=== PATIENT | female | born 1960 | race Two or more races ===

== ENCOUNTER → 2017-02-14 | Outpatient (REF) | payer OTHER ==
[2017-02-14 13:41] LABS: BASO # 0.1 10^3/uL (0.0-0.2); BASO % 0.9 % (0.0-1.0); EOS # 0.2 10^3/uL (0.0-0.50); EOS % 2.7 % (0.0-3.0); IMMATURE GRANULOCYTE % 0.3 % (0-0); LYMPH # 1.1 10^3/uL (1.5-4.5); LYMPH % 16.5 % (24.0-44.0); MEAN CORPUSCULAR HEMOGLOBIN 28.2 pg (27.0-33.0); MEAN CORPUSCULAR HGB CONC 33.7 g/dl (32.0-36.5); MEAN CORPUSCULAR VOLUME 83.8 fl (80.0-96.0); MONO # 0.4 10^3/uL (0.0-0.8); MONO % 5.2 % (0.0-5.0); NEUTROPHILS # 5.2 10^3/uL (1.8-7.7); NEUTROPHILS % 74.4 % (36.0-66.0); PLATELET COUNT, AUTOMATED 280 10^3/uL (150-450); RED CELL DISTRIBUTION WIDTH 12.6 % (11.5-14.5); WHITE BLOOD COUNT 6.9 10^3/uL (4.0-10.0)
[2017-02-14 13:56] LABS: ALBUMIN 3.3 GM/DL (3.2-5.2); ALBUMIN/GLOBULIN RATIO 1.14 (1.00-1.93); BILIRUBIN,TOTAL 0.4 MG/DL (0.2-1.0); CALCIUM LEVEL 8.4 MG/DL (8.5-10.1); CREATININE FOR GFR 1.29 MG/DL (0.55-1.02); GLOMERULAR FILTRATION RATE 45.7 (>51); POTASSIUM SERUM 4.4 MEQ/L (3.5-5.1); TOTAL PROTEIN 6.2 GM/DL (6.4-8.2)
== END ==
LOC: M SFHCADAM 11:22
PROVIDERS: ATTEND Family Medicine
DX: E78.5 Hyperlipidemia, unspecified (principal); E11.9 Type 2 diabetes mellitus without complications

== ENCOUNTER → 2017-02-28 | Outpatient (REF) | payer OTHER ==
[2017-02-28 13:42] LABS: MAU/CREAT RATIO 2705.8 MCG/MG (0.0-30.0)
== END ==
LOC: M SFHCADAM 11:03
DX: E11.9 Type 2 diabetes mellitus without complications (principal)

== ENCOUNTER → 2017-07-31 | Outpatient (REF) | payer OTHER | LOC: M SFHCADAM 17:24 | DX: E11.9 Type 2 diabetes mellitus without complications (principal) ==

== ENCOUNTER → 2017-12-27 | Outpatient (CLI) | payer OTHER | LOC: M ADAMS 13:45 | DX: S80.01XA Contusion of right knee, initial encounter (principal); X58.XXXA Exposure to other specified factors, initial encounter; Y92.9 Unspecified place or not applicable | CPT/HCPCS: 73564 ==

== ENCOUNTER → 2018-07-03 | Outpatient (REF) | payer OTHER ==
[2018-07-03 12:40] LABS: BASO # 0.1 10^3/uL (0.0-0.2); BASO % 1.1 % (0.0-1.0); EOS # 0.2 10^3/uL (0.0-0.50); EOS % 3.7 % (0.0-3.0); HEMATOCRIT 31.4 % (36.0-47.0); HEMOGLOBIN 10.5 g/dl (12.0-15.5); LYMPH # 1.2 10^3/uL (1.5-4.5); LYMPH % 20.4 % (24.0-44.0); MEAN CORPUSCULAR HEMOGLOBIN 28.9 pg (27.0-33.0); MEAN CORPUSCULAR HGB CONC 33.4 g/dl (32.0-36.5); MEAN CORPUSCULAR VOLUME 86.5 fl (80.0-96.0); MONO # 0.3 10^3/uL (0.0-0.8); MONO % 5.3 % (0.0-5.0); NEUTROPHILS # 3.9 10^3/uL (1.8-7.7); NEUTROPHILS % 69.1 % (36.0-66.0); PLATELET COUNT, AUTOMATED 209 10^3/uL (150-450); RED BLOOD COUNT 3.63 10^6/uL (4.00-5.40); WHITE BLOOD COUNT 5.6 10^3/uL (4.0-10.0)
[2018-07-03 12:49] LABS: ALBUMIN 2.7 GM/DL (3.2-5.2); BILIRUBIN,TOTAL 0.3 MG/DL (0.2-1.0); CALCIUM LEVEL 8.3 MG/DL (8.5-10.1); CHOLESTEROL RISK RATIO 3.561 (<5); CREATININE FOR GFR 1.89 MG/DL (0.55-1.30); GLOMERULAR FILTRATION RATE 29.3 (>51); POTASSIUM SERUM 4.6 MEQ/L (3.5-5.1); TOTAL PROTEIN 5.1 GM/DL (6.4-8.2)
[2018-07-03 14:49] LABS: HEMOGLOBIN A1c 8.5 %
== END ==
LOC: M SFHCADAM 09:28
PROVIDERS: ATTEND Family Medicine
DX: E11.9 Type 2 diabetes mellitus without complications (principal)

== ENCOUNTER 2018-11-11 17:51 | Inpatient (IN) | payer OTHER ==
[~2018-11-11] VITALS: Ht 147.3 cm; Wt 58.7 kg
[2018-11-11] MEDS ORDERED: ATOR80TA59 PO (18:14)
[2018-11-11] MEDS ORDERED: LABETALOL HCL 100 MG/20 ML VIAL IV STA ×2 (18:14→19:18)
[2018-11-11] MEDS ORDERED: METO1TAB87 PO (18:14)
[2018-11-11] MEDS ORDERED: GLIP10TA6 PO (18:14)
[2018-11-11] MEDS ORDERED: LISI10TA4 PO (18:14)
[2018-11-11 18:25] LABS: BASO % 0.4 % (0.0-1.0); HEMATOCRIT 34.7 % (36.0-47.0); HEMOGLOBIN 12.1 g/dl (12.0-15.5); LYMPH # 0.6 10^3/uL (1.5-5.0); LYMPH % 6.1 % (24.0-44.0); MEAN CORPUSCULAR HEMOGLOBIN 28.7 pg (27.0-33.0); MEAN CORPUSCULAR HGB CONC 34.9 g/dl (32.0-36.5); MEAN CORPUSCULAR VOLUME 82.2 fl (80.0-96.0); MONO # 0.3 10^3/uL (0.0-0.8); MONO % 2.6 % (0.0-5.0); NEUTROPHILS # 9.2 10^3/uL (1.5-8.5); NEUTROPHILS % 90.4 % (36.0-66.0); PLATELET COUNT, AUTOMATED 243 10^3/uL (150-450); RED BLOOD COUNT 4.22 10^6/uL (4.00-5.40); WHITE BLOOD COUNT 10.2 10^3/uL (4.0-10.0)
--- NOTE | 2018-11-11 18:48 | REPVR ---
EXAM: CT Head Without Contrast EXAM DATE/TIME: 11/11/2018 6:15 PM CLINICAL HISTORY: 57 years old, female; Pain; Headache TECHNIQUE: Imaging protocol: Computed tomography of the head without contrast. Radiation optimization: All CT scans at this facility use at least one of these dose optimization techniques: automated exposure control; mA and/or kV adjustment per patient size (includes targeted exams where dose is matched to clinical indication); or iterative reconstruction. COMPARISON: No relevant prior studies available. FINDINGS: Brain: There is no significant parenchymal volume loss. Confluent white matter changes are demonstrated in the subcortical, centrum semiovale and periventricular white matter consistent with small vessel white matter angiopathic gliosis. Findings are atypical for this age group. Small lacunar infarct left basal ganglia. Ventricles: Normal. No ventriculomegaly. Bones/joints: Unremarkable. No acute fracture. Sinuses: Visualized sinuses are unremarkable. No fluid levels. Mastoid air cells: Visualized mastoid air cells are well aerated. Soft tissues: Unremarkable. IMPRESSION: 1. There is no significant parenchymal volume loss. 2. Confluent white matter changes are demonstrated in the subcortical, centrum semiovale and periventricular white matter consistent with small vessel white matter angiopathic gliosis. Findings are atypical for this age group. Electronically signed by: Tyron Baker On 11/11/2018 18:48:42 PM
[2018-11-11 18:54] LABS: INR 0.95; PROTHROMBIN TIME 12.4 SECONDS (11.8-14.0)
[2018-11-11 18:57] LABS: BILIRUBIN,TOTAL 0.6 MG/DL (0.2-1.0); CALCIUM LEVEL 9.1 MG/DL (8.5-10.1); CREATININE FOR GFR 2.11 MG/DL (0.55-1.30); GLOMERULAR FILTRATION RATE 25.8 (>51); POTASSIUM SERUM 3.8 MEQ/L (3.5-5.1); TOTAL PROTEIN 5.8 GM/DL (6.4-8.2)
--- NOTE | 2018-11-11 19:28 | ECGEPIP ---
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
[2018-11-11] MEDS ORDERED: ASPI1TAB22 PO (19:30)
[2018-11-11] MEDS ORDERED: ONDANSETRON 4MG/2ML VIAL (J2405) As Ordered ONE (19:49)
[2018-11-11] MEDS ORDERED: METOPROLOL SUCC (TopROL XL) 50MG **XL** TAB PO ONE (20:00)
[2018-11-11] MEDS ORDERED: LISINOPRIL 20 MG TAB PO ONE (21:00)
[2018-11-11] MEDS ORDERED: ONDANSETRON 4MG/2ML VIAL (J2405) IV ONE (21:00)
[2018-11-11] MEDS ORDERED: PERCOCET 5MG/325MG TAB PO ONE (21:00)
[2018-11-11] MEDS ORDERED: METOPROLOL TART 50 MG TAB PO ONE (21:00)
[2018-11-11] MEDS ORDERED: MOM 30ML SUSPENSION UDC PO PRN (21:30)
[2018-11-11] MEDS ORDERED: NS 0.45% 1,000 ML IV SCH (21:30)
--- NOTE | 2018-11-11 21:42 | HPEPDOC ---
General Date of Admission Date of Service: Nov 11, 2018 Chief Complaint The patient is a 57-year-old female admitted with a reason for visit of Vomiting, Headache, Dizziness. Source: Patient Exam Limitations: No limitations Timing/Duration: Day(s) Severity: Severe History of Present Illness Ms Martin is a 57 years old woman who ran out of her anti-hypertensive medications (Lisinopril and Metoprolol) two days ago presented to ER with frontal headache, nausea, vomiting, and bilateral blurry vision. PT denies chest pain, SOB, fever, chills or focal neurological deficits. In the ER, pt was noted to have extremely elevated BP 296/190. Labs are pretty much at baseline, with slight increase of serum Cr from 1.[address]: no acute findings. CXR: normal size mediastinum. I saw pt in the ER after she had received a dose of Labetalol 20 mg IVP. BP right arm 255/116, left arm 248/116. She received another dose of Labetalol 20 mg IVP; BP was down to 216/98. Headache, nausea and blurry vision were persistent, but better. Pt was given oral Lisinopril and Metoprolol. EKG: SR 87/min, mild T inversion in V5-6, Diffuse T flattening. Home Medications Scheduled Aspirin (Aspirin) 325 Mg Tablet, 325 MG PO DAILY, (Reported) Atorvastatin Calcium (Atorvastatin Calcium) 80 Mg Tablet, 80 MG PO DAILY, (Reported) Glipizide (Glipizide) 10 Mg Tablet, 10 MG PO BID, (Reported) Lisinopril (Lisinopril) 10 Mg Tablet, 10 MG PO DAILY, (Reported) Metoprolol Tartrate (Metoprolol Tartrate) 25 Mg Tablet, 25 MG PO BID, (Reported) Allergies Coded Allergies: No Known Allergies (Unverified , 11/11/18) Past Medical History Medical History HTN, NIDDM, HLD Surgical History Prosthetic Mitral Valve replacement, Family History Significant Family History: Other (Unknown (pt was adopted)) Social History * Smoker: Denies Alcohol: Denies Drugs: denies Psychosocial History: No pertinent psych hx A-FIB/CHADSVASC A-FIB History Current/History of A-Fib/PAF?: No Review of Systems Constitutional: Denies: Chills, Fever Eyes: Reports: Vision change ENT: Reports: Head Aches; Denies: Dysphagia, Epistaxis Skin: Denies: Rash, Lesions Pulmonary: Denies: Dyspnea, Cough, Pleuritic Chest Pain Cardiovascular: Denies: Chest Pain, Palpitations, Edema, Lt Headedness Gastrointestinal: Reports: Nausea, Vomiting; Denies: Abdominal Pain Genitourinary: Denies: Dysuria, Frequency Hematologic: Denies: Bruising Endocrine: Denies: Polydipsia, Polyphagia Musculoskeletal: Denies: Neck Pain, Back Pain, Shoulder Pain Neurological: Denies: Weakness, Numbness, Change in speech, Confusion, Seizures Psych: Reports: Mood Normal; Denies: Anxiety Physical Examination General Exam: Positive: Alert, Cooperative, No Acute Distress Eye Exam: Positive: PERRLA, Conjunctiva & lids normal ENT Exam: Positive: Atraumatic, Mucous membr. moist/pink Neck Exam: Positive: Supple; Negative: JVD Chest Exam: Positive: Clear to auscultation, Normal air movement Heart Exam: Positive: Rate Normal, Regular Rhythm; Negative: Murmurs Abdomen Exam: Positive: Normal bowel sounds, Soft; Negative: Tenderness Extremity Exam: Positive: Normal pulses; Negative: Edema Skin Exam: Positive: Nl turgor and temperature; Negative: Rash, Breakdown Neuro Exam: Positive: Normal Speech, Strength at 5/5 X4 ext, Normal Tone, Sensation Intact, Cranial Nerves 3-12 NL Psych Exam: Positive: Mental status NL, Mood NL, Oriented x 3; Negative: Anxiety Vital Signs Vital Signs Date Time Temp Pulse Resp B/P (MAP) Pulse Ox O2 Delivery O2 Flow Rate FiO2 11/11/18 21:15 71 16 230/108 (148) 98 Room Air 11/11/18 17:52 98.0 Laboratory Data Labs 24H Laboratory Tests 2 11/11/18 18:17: Immature Granulocyte % (Auto) 0.5, White Blood Count 10.2H, Red Blood Count 4.22, Hemoglobin 12.1, Hematocrit 34.7L, Mean Corpuscular Volume 82.2, Mean Corpuscular Hemoglobin 28.7, Mean Corpuscular Hemoglobin Concent 34.9, Red Cell Distribution Width 13.9, Platelet Count 243, Neutrophils (%) (Auto) 90.4H, Lymphocytes (%) (Auto) 6.1L, Monocytes (%) (Auto) 2.6, Eosinophils (%) (Auto) 0.0, Basophils (%) (Auto) 0.4, Neutrophils # (Auto) 9.2H, Lymphocytes # (Auto) 0.6L, Monocytes # (Auto) 0.3, Eosinophils # (Auto) 0.0, Basophils # (Auto) 0.0, Nucleated Red Blood Cells % (auto) 0.0, Prothrombin Time 12.4, Prothromb Time International Ratio 0.95, Anion Gap 10, Glomerular Filtration Rate 25.8L, Blood Urea Nitrogen 33H, Creatinine 2.11H, Sodium Level 141, Potassium Level 3.8, Chloride Level 109H, Carbon Dioxide Level 22, Calcium Level 9.1, Aspartate Amino Transf (AST/SGOT) 22, Alanine Aminotransferase (ALT/SGPT) 29, Alkaline Phosphatase 96, Total Bilirubin 0.6, Total Protein 5.8L, Albumin 3.0L, Albumin/Globulin Ratio 1.07 11/11/18 18:18: POC Glucose (Misc Panel) 220H, POC Sodium (Misc Panel) 138, POC Potassium (Misc Panel) 3.7, POC Chloride (Misc Panel) 108, POC Total CO2 (Misc Panel) 22.0L, POC Blood Urea Nitrogen (Misc Panel 30H, POC Ionized Calcium (Misc Panel) 4.5, POC Creatinine (Misc Panel) 2.4H, POC Hematocrit (Misc Panel) 32.0L CBC/BMP Laboratory Tests 11/11/18 18:17 Red Blood Count 4.22, Mean Corpuscular Volume 82.2, Mean Corpuscular Hemoglobin 28.7, Mean Corpuscular Hemoglobin Concent 34.9, Red Cell Distribution Width 13.9, Neutrophils (%) (Auto) 90.4 H, Lymphocytes (%) (Auto) 6.1 L, Monocytes (%) (Auto) 2.6, Eosinophils (%) (Auto) 0.0, Basophils (%) (Auto) 0.4, Neutrophils # (Auto) 9.2 H, Lymphocytes # (Auto) 0.6 L, Monocytes # (Auto) 0.3, Eosinophils # (Auto) 0.0, Basophils # (Auto) 0.0, Calcium Level 9.1, Aspartate Amino Transf (AST/SGOT) 22, Alanine Aminotransferase (ALT/SGPT) 29, Alkaline Phosphatase 96, Total Bilirubin 0.6, Total Protein 5.8 L, Albumin 3.0 L Assessment/Plan HTN Urgency due to Medication non-compliance, no end organ damage - Admit to inpatient, in PCU with Tele - Monitor BP - Allow slow recovery; prevent rapid lowering of BP - Monitor signs of organ dysfunction - Continue home meds; adjust as needed Plan / VTE VTE Prophylaxis Ordered?: No VTE Exclusion Mechanical Proph: Low Risk for VTE VTE Exclusion Pharmacological: At Low Risk for VTE Plan IVF: Initiate Activity: Encourage Ambulation Diagnostics: Repeat Labs in AM Anticipated Discharge: Home BRETT MALONE MD Nov 11, 2018 21:41
[2018-11-11] MEDS ORDERED: hydrALAZINE INJ 20 MG/ML VIAL IV ONE (22:30)
[2018-11-11 23:11] VITALS: BP 170/82
[2018-11-12] MEDS: ONDANSETRON 4MG/2ML VIAL (J2405) IV PRN (00:21)
[2018-11-12] MEDS: PERCOCET 5MG/325MG TAB PO PRN ×2 (00:23→21:21)
--- NOTE | 2018-11-12 02:02 | REP ---
Clinical: Hypertension. Technique: Single portable view of the chest. Comparison: None. Findings: Cardiac silhouette is upper limits of normal. Evidence of prior sternotomy and aortic valve repair. Surgical clips identified in the right hilar region. Lung zendejas demonstrate chronic interstitial changes. No focal consolidation, effusion, or pneumothorax. Skeletal structures are intact. Impression: Chronic-appearing changes as above. Electronically Signed by Zachary Shi MD 11/12/2018 01:53 A
[2018-11-12 04:00] VITALS: BP 182/92
[2018-11-12 06:01] LABS: CALCIUM LEVEL 8.1 MG/DL (8.5-10.1); CREATININE FOR GFR 2.45 MG/DL (0.55-1.30); GLOMERULAR FILTRATION RATE 21.7 (>51); POTASSIUM SERUM 3.7 MEQ/L (3.5-5.1)
[2018-11-12 08:00] VITALS: BP 194/92
[2018-11-12] MEDS ORDERED: GLUCAGON FOR INJ 1 MG VIAL (J1610) SC PRN (08:45)
[2018-11-12] MEDS ORDERED: GLUCOSE 4 GM CHEW TABLET PO PRN (08:45)
[2018-11-12] MEDS ORDERED: DEXTROSE 50% 50 ML SYRINGE IV PRN (08:45)
--- NOTE | 2018-11-12 08:57 | IPNPDOC ---
Subjective Date Seen The patient was seen on 11/12/18. Subjective Chief Complaint/HPI headache better, no nausea this am Constitutional: Denies: Chills ENT: Reports: Head Aches (improved) Skin: Denies: Rash Pulmonary: Denies: Dyspnea, Cough Cardiovascular: Denies: Chest Pain, Palpitations Gastrointestinal: Denies: Nausea, Abdominal Pain Genitourinary: Denies: Dysuria Hematologic: Denies: Bruising Musculoskeletal: Denies: Neck Pain Neurological: Denies: Weakness Psych: Reports: Mood Normal Objective Physical Examination General Exam: Positive: Alert, Cooperative, No Acute Distress Eye Exam: Positive: PERRLA, Conjunctiva & lids normal ENT Exam: Positive: Atraumatic, Mucous membr. moist/pink Neck Exam: Positive: Supple; Negative: JVD Chest Exam: Positive: Clear to auscultation, Normal air movement Heart Exam: Positive: Rate Normal, Regular Rhythm, Murmurs (2-3 systolic murmur at base) Abdomen Exam: Positive: Normal bowel sounds, Soft, Other (no bruit noted); Negative: Tenderness Extremity Exam: Positive: Normal pulses; Negative: Edema Skin Exam: Positive: Nl turgor and temperature, Other skin issue (grime on skin of feet, elbows.); Negative: Rash, Breakdown Neuro Exam: Positive: Normal Speech, Strength at 5/5 X4 ext, Normal Tone, Sensation Intact, Cranial Nerves 3-12 NL Psych Exam: Positive: Mental status NL, Mood NL, Oriented x 3; Negative: Anxiety Assessment /Plan Problems (1) Hypertensive urgency Status: Acute Response to Treatment: Improving Problem Text: change to carvedilol to replace metoprolol, add amlodipine, titrate both to effect. d/c lisinopril d/t acute renal failure. Will request renal u/s. (2) Diabetes mellitus Status: Chronic Response to Treatment: Stable Problem Text: Last A1c in the low 8's. Not on insulin at home, just using glipizide (3) Stage 4 chronic kidney disease due to diabetes mellitus Status: Chronic Response to Treatment: Worse Problem Text: has been on lisinopril with creatinine 1.89 when last checked with evidence of poor control at that time. (4) Acute renal failure Status: Acute Response to Treatment: Worse Problem Text: Creatinine worse compared to admission and compared to record of 06/2018. Etiology could be poor dm control, inadequate bp control or other cause. she looks a little dry so will continue gentle hydration while bp meds are adjusted and stop TERESA-i for now. (5) Heart murmur Status: Acute Response to Treatment: Stable Problem Text: not noted on last outpt encounter. will request Echo to evaluate Plan/VTE VTE Prophylaxis Ordered?: No VTE Exclusion Mechanical Proph: Low Risk for VTE VTE Exclusion Pharmacological: At Low Risk for VTE Plan IVF: Initiate Activity: Encourage Ambulation Diagnostics: Repeat Labs in AM Anticipated Discharge: [facility] VS[facility] Vital Signs/I&O Vital Signs Date Time Temp Pulse Resp B/P (MAP) Pulse Ox O2 Delivery O2 Flow Rate FiO2 11/12/18 04:00 98.5 65 18 182/92 (122) 97 11/11/18 22:00 Room Air I&O- Last 24 Hours up to 6 AM 11/12/18 06:00 Intake Total 450 ml Output Total 0 ml Balance 450 ml Laboratory Data 24H LABS Laboratory Tests 2 11/11/18 18:17: Immature Granulocyte % (Auto) 0.5, White Blood Count 10.2H, Red Blood Count 4.22, Hemoglobin 12.1, Hematocrit 34.7L, Mean Corpuscular Volume 82.2, Mean Corpuscular Hemoglobin 28.7, Mean Corpuscular Hemoglobin Concent 34.9, Red Cell Distribution Width 13.9, Platelet Count 243, Neutrophils (%) (Auto) 90.4H, Lymphocytes (%) (Auto) 6.1L, Monocytes (%) (Auto) 2.6, Eosinophils (%) (Auto) 0.0, Basophils (%) (Auto) 0.4, Neutrophils # (Auto) 9.2H, Lymphocytes # (Auto) 0.6L, Monocytes # (Auto) 0.3, Eosinophils # (Auto) 0.0, Basophils # (Auto) 0.0, Nucleated Red Blood Cells % (auto) 0.0, Prothrombin Time 12.4, Prothromb Time International Ratio 0.95, Anion Gap 10, Glomerular Filtration Rate 25.8L, Blood Urea Nitrogen 33H, Creatinine 2.11H, Sodium Level 141, Potassium Level 3.8, Chloride Level 109H, Carbon Dioxide Level 22, Calcium Level 9.1, Aspartate Amino Transf (AST/SGOT) 22, Alanine Aminotransferase (ALT/SGPT) 29, Alkaline Phosphatase 96, Total Bilirubin 0.6, Total Protein 5.8L, Albumin 3.0L, Al bumin/Globulin Ratio 1.07 11/11/18 18:18: POC Glucose (Misc Panel) 220H, POC Sodium (Misc Panel) 138, POC Potassium (Misc Panel) 3.7, POC Chloride (Misc Panel) 108, POC Total CO2 (Misc Panel) 22.0L, POC Blood Urea Nitrogen (Misc Panel 30H, POC Ionized Calcium (Misc Panel) 4.5, POC Creatinine (Misc Panel) 2.4H, POC Hematocrit (Misc Panel) 32.0L 11/12/18 05:18: Anion Gap 10, Glomerular Filtration Rate 21.7L, Blood Urea Nitrogen 39H, Creatinine 2.45H, Sodium Level 141, Potassium Level 3.7, Chloride Level 109H, Carbon Dioxide Level 22, Calcium Level 8.1L CBC/BMP Laboratory Tests 11/11/18 18:17 Red Blood Count 4.22, Mean Corpuscular Volume 82.2, Mean Corpuscular Hemoglobin 28.7, Mean Corpuscular Hemoglobin Concent 34.9, Red Cell Distribution Width 13.9, Neutrophils (%) (Auto) 90.4 H, Lymphocytes (%) (Auto) 6.1 L, Monocytes (%) (Auto) 2.6, Eosinophils (%) (Auto) 0.0, Basophils (%) (Auto) 0.4, Neutrophils # (Auto) 9.2 H, Lymphocytes # (Auto) 0.6 L, Monocytes # (Auto) 0.3, Eosinophils # (Auto) 0.0, Basophils # (Auto) 0.0, Calcium Level 9.1, Aspartate Amino Transf (AST/SGOT) 22, Alanine Aminotransferase (ALT/SGPT) 29, Alkaline Phosphatase 96, Total Bilirubin 0.6, Total Protein 5.8 L, Albumin 3.0 L 11/12/18 05:18 Calcium Level 8.1 L Lonnie Graves MD Nov 12, 2018 08:57
[2018-11-12] MEDS ORDERED: LISINOPRIL 10 MG TAB PO SCH (09:00)
[2018-11-12] MEDS ORDERED: METOPROLOL TART 25 MG TABLET PO SCH (09:00)
[2018-11-12] MEDS: CARVedilol 6.25 MG TAB PO SCH ×2 (09:13→21:22)
[2018-11-12] MEDS: ATORVASTATIN 20 MG TAB PO SCH (09:13)
[2018-11-12] MEDS: ASPIRIN 325 MG TAB PO SCH (09:13)
[2018-11-12] MEDS: NS 0.45% 1,000 ML IV SCH ×2 (10:11→21:15)
[2018-11-12 12:00] VITALS: BP 150/82
[2018-11-12] MEDS: HumaLOG INSULIN (NovoLOG) PER UNIT SC SCH ×3 (12:59→21:00)
[2018-11-12 16:00] VITALS: BP 132/84
[2018-11-12] MEDS: ACETAMINOPHEN TAB 650MG DOSE (2X325MG) PO PRN (17:00)
[2018-11-12] MEDS: MAALOX 30 ML SUSP *UDC PO PRN (17:00)
[2018-11-12 20:00] VITALS: BP 168/72
[2018-11-12 23:59] VITALS: BP 162/68
[2018-11-13 00:38] LABS: APPEARANCE, URINE CLEAR (CLEAR); BACTERIA, URINE AUTO NEGATIVE (NEGATIVE); BILIRUBIN, URINE AUTO NEGATIVE (NEGATIVE); BLOOD, URINE BLOOD 2+ (NEGATIVE); COLOR, URINE YELLOW (YELLOW); GLUCOSE, URINE (UA) AUTO 3+ mg/dL (NEGATIVE); KETONE, URINE AUTO NEGATIVE (NEGATIVE); LEUKOCYTE ESTERASE, URINE AUTO NEGATIVE (NEGATIVE); MUCUS, URINE SMALL (NEGATIVE); NITRITE, URINE AUTO NEGATIVE (NEGATIVE); PROTEIN, URINE AUTO 3+ mg/dL (NEGATIVE); RBC, URINE AUTO 2 /HPF (0-3); SPECIFIC GRAVITY URINE AUTO 1.023 (1.002-1.035); SQUAMOUS EPITHELIAL CELL UR AU 3 /HPF (0-6); UROBILINOGEN, URINE AUTO 0.2 mg/dL (0.0-2.0); WBC, URINE AUTO 6 /HPF (0-3)
[2018-11-13 01:52] LABS: MAU/CREAT RATIO 7151.8 MCG/MG (0.0-30.0)
[2018-11-13 04:00] VITALS: BP 168/77
[2018-11-13] MEDS: NS 0.45% 1,000 ML IV SCH (05:54)
[2018-11-13] MEDS: HumaLOG INSULIN (NovoLOG) PER UNIT SC SCH ×4 (07:30→21:00)
[2018-11-13 07:40] VITALS: BP 188/96
[2018-11-13] MEDS: ASPIRIN 325 MG TAB PO SCH (08:45)
[2018-11-13] MEDS: ATORVASTATIN 20 MG TAB PO SCH (08:45)
[2018-11-13] MEDS: CARVedilol 6.25 MG TAB PO SCH ×2 (08:46→21:19)
[2018-11-13] MEDS ORDERED: amLODIPine 5 MG TAB PO SCH (09:00)
[2018-11-13] MEDS ORDERED: FLUBLOK(EGG FREE)(QUAD)INFLUENZA VACC 0.5ML SYRINGE (90682)18YRS&OLDER IM ONE (09:00)
[2018-11-13 10:06] LABS: ALBUMIN 2.3 GM/DL (3.2-5.2); BILIRUBIN,TOTAL 0.3 MG/DL (0.2-1.0); CALCIUM LEVEL 7.8 MG/DL (8.5-10.1); CREATININE FOR GFR 2.68 MG/DL (0.55-1.30); GLOMERULAR FILTRATION RATE 19.6 (>51); POTASSIUM SERUM 3.7 MEQ/L (3.5-5.1); TOTAL PROTEIN 4.7 GM/DL (6.4-8.2)
--- NOTE | 2018-11-13 11:24 | REP ---
Renal vascular ultrasound: Right Kidney: Extraparenchymal renal artery. Peak renal artery flow velocity the 61.3 cm/ sec Peak aortic velocity: 93.3 cm/sec Renal/aortic ratio: 0.7 Intraparenchymal renal arteries. Resistive index: upper pole 0.79 mid pole 0.76 lower pole 0.79 Acceleration time: upper pole 0.052 mid pole 0.048 lower pole 0.068 Left kidney: Extraparenchymal renal artery: Peak renal artery flow velocity: 79.2 cm/sec. Peak aortic velocity: 93.3 cm/sec Renal/aortic ratio: 0.8 Intraparenchymal renal arteries: Resistive index: Upper pole 0.71 mid pole 0.79 lower pole 0.72 Acceleration time: Upper pole 0.063 mid pole eight 0.079 lower pole 0.039 Impression: No Doppler evidence of renal artery stenosis. The resistive indices are elevated bilaterally, this is nonspecific. Bilateral renal ultrasound: The right kidney measures 9.0 x 3.9 x 3 point centimeters. The left kidney measures 9.5 x 3.8 x 3.9 cm. The kidneys are in the low normal size range. There is no hydronephrosis on the right on the left. There are no renal calculi. There are no solid or cystic renal masses. With Doppler assessment there are bilateral ureteral jets into the bladder. Multiple echogenic foci are identified within the gallbladder, likely cholelithiasis. There is a trace of free fluid adjacent to the liver and kidneys, possibly a small volume of ascites. There are bilateral pleural effusions. Impression: Essentially negative renal ultrasound. However, there is probable cholelithiasis and small volume of ascites and bilateral pleural effusions. Electronically Signed by Devonte Majano MD 11/13/2018 11:15 A
--- NOTE | 2018-11-13 11:59 | IPNPDOC ---
Subjective Date Seen The patient was seen on 11/13/18. Subjective Chief Complaint/HPI Patient reports headache. She just returned from ultrasound Constitutional: Denies: Chills, Fever ENT: Reports: Head Aches Pulmonary: Denies: Cough Cardiovascular: Denies: Chest Pain, Palpitations, Orthopnea Gastrointestinal: Denies: Nausea, Abdominal Pain Genitourinary: Denies: Dysuria, Frequency Psych: Reports: Mood Normal Objective Physical Examination General Exam: Positive: Alert, Cooperative, No Acute Distress Eye Exam: Positive: PERRLA, Conjunctiva & lids normal ENT Exam: Positive: Atraumatic, Mucous membr. moist/pink Neck Exam: Positive: Supple; Negative: JVD Chest Exam: Positive: Clear to auscultation, Normal air movement Heart Exam: Positive: Rate Normal, Regular Rhythm, Murmurs (2-3 systolic murmur at base) Abdomen Exam: Positive: Normal bowel sounds, Soft, Other (no bruit noted); Negative: Tenderness Extremity Exam: Positive: Edema (trace edema), Normal pulses Skin Exam: Positive: Nl turgor and temperature, Other skin issue (grime on skin of feet, elbows.); Negative: Rash, Breakdown Neuro Exam: Positive: Normal Speech, Strength at 5/5 X4 ext, Normal Tone, Sensation Intact, Cranial Nerves 3-12 NL Psych Exam: Positive: Mental status NL, Mood NL, Oriented x 3; Negative: Anxiety Assessment /Plan Problems (1) Hypertensive urgency Status: Acute Response to Treatment: Improving Problem Text: 11/13/18: Increase Amlodipine to 10mg. Continue with beta dc. Renal u/s negative for ROYAL change to carvedilol to replace metoprolol, add amlodipine, titrate both to effect. d/c lisinopril d/t acute renal failure. Will request renal u/s. (2) Diabetes mellitus Status: Chronic Response to Treatment: Stable Problem Text: 11/13/18: Starting basal insulin Last A1c in the low 8's. Not on insulin at home, just using glipizide (3) Stage 4 chronic kidney disease due to diabetes mellitus Status: Chronic Response to Treatment: Worse Problem Text: has been on lisinopril with creatinine 1.89 when last checked with evidence of poor control at that time. (4) Acute renal failure Status: Acute Response to Treatment: Worse Problem Text: 11/13/18: Renal function slightly worse. Nephrology consulted Creatinine worse compared to admission and compared to record of 06/2018. Etiology could be poor dm control, inadequate bp control or other cause. she looks a little dry so will continue gentle hydration while bp meds are adjusted and stop TERESA-i for now. (5) Heart murmur Status: Acute Response to Treatment: Stable Problem Text: not noted on last outpt encounter. will request Echo to evaluate Plan/VTE VTE Prophylaxis Ordered?: No VTE Exclusion Mechanical Proph: Low Risk for VTE VTE Exclusion Pharmacological: At Low Risk for VTE Plan IVF: Initiate Activity: Encourage Ambulation Diagnostics: Repeat Labs in AM Anticipated Discharge: Home VS, I&O, 24H, [facility] Vital Signs/I&O Vital Signs Date Time Temp Pulse Resp B/P (MAP) Pulse Ox O2 Delivery O2 Flow Rate FiO2 11/13/18 08:45 180/94 11/13/18 07:40 97.3 68 18 100 11/11/18 22:00 Room Air I&O- Last 24 Hours up to 6 AM 11/13/18 06:00 Intake Total 1985 ml Output Total 200 ml Balance 1785 ml Laboratory Data 24H LABS Laboratory Tests 2 11/12/18 12:37: Bedside Glucose (Misc Panel) 221H 11/12/18 17:05: Bedside Glucose (Misc Panel) 107H 11/12/18 21:13: Bedside Glucose (Misc Panel) 154H 11/13/18 00:05: Urine Appearance CLEAR, Urine Color YELLOW, Urine pH 5.0, Urine Specific [place] 1.023, Urine Protein 3+H, Urine Glucose (UA) 3+H, Urine Ketones NEGATIVE, Urine Urobilinogen 0.2, Urine Bilirubin NEGATIVE, Urine Leukocyte Esterase NEGATIVE, Urine Blood 2+H, Urine Nitrite NEGATIVE, Urine WBC (Auto) 6H, Urine RBC (Auto) 2, Urine Hyaline Casts (Auto) 13, Urine Bacteria (Auto) NEGATIVE, Urine Squamous Epithelial Cells 3, Urine Mucus (Auto) SMALL, Urine Sperm (Auto) , Urine Creatinine 158.0, Urine Microalbumin 70272.0, Urine Microalbumin/Creatinine Ratio 7151.8H 11/13/18 08:30: Bedside Glucose (Misc Panel) 154H 11/13/18 08:54: Anion Gap 9, Glomerular Filtration Rate 19.6L, Blood Urea Nitrogen 38H, Crea tinine 2.68H, Sodium Level 140, Potassium Level 3.7, Chloride Level 109H, Carbon Dioxide Level 22, Calcium Level 7.8L, Aspartate Amino Transf (AST/SGOT) 13, Alanine Aminotransferase (ALT/SGPT) 21, Alkaline Phosphatase 62, Total Bilirubin 0.3, Total Protein 4.7L, Albumin 2.3#L, Albumin/Globulin Ratio 0.96L CBC/BMP Laboratory Tests 11/13/18 08:54 Calcium Level 7.8 L, Aspartate Amino Transf (AST/SGOT) 13, Alanine Aminotransferase (ALT/SGPT) 21, Alkaline Phosphatase 62, Total Bilirubin 0.3, Total Protein 4.7 L, Albumin 2.3 #L LOVE RAMOSP Nov 13, 2018 11:59
[2018-11-13] MEDS ORDERED: FUROSEMIDE 40 MG/4 ML VIAL (J1940) IV ONE ×2 (12:00→18:00)
[2018-11-13] MEDS ORDERED: amLODIPine 5 MG TAB PO ONE (12:00)
[2018-11-13 12:54] LABS: COMPLEMENT C3 107 MG/DL (90-180); COMPLEMENT C4 31 MG/DL (10-40); TOTAL PROTEIN 4.8 GM/DL (6.4-8.2)
[2018-11-13] MEDS: ACETAMINOPHEN TAB 650MG DOSE (2X325MG) PO PRN (13:11)
[2018-11-13] MEDS: ONDANSETRON 4MG/2ML VIAL (J2405) IV PRN ×2 (13:12→21:27)
[2018-11-13 13:41] VITALS: BP 198/90
[2018-11-13] MEDS: **hydrALAZINE** 10 MG TAB PO SCH ×3 (14:13→23:41)
[2018-11-13 16:00] VITALS: BP 144/78
[2018-11-13 20:10] VITALS: BP 182/84
[2018-11-13] MEDS ORDERED: POTASSIUM CHLORIDE 10 MEQ SR TABLET PO ONE (20:15)
--- NOTE | 2018-11-13 20:49 | CR ---
DATE OF CONSULTATION: 11/13/2018 REQUESTING PHYSICIAN: Lonnie Graves MD CONSULTING PHYSICIAN: Tee Dougherty MD REASON FOR CONSULTATION Management of hypertension, acute kidney injury, superimposed on chronic kidney disease and proteinuria. CHIEF COMPLAINT The patient was admitted on November 11, 2018 for headache, vomiting secondary to hypertensive urgency. HISTORY OF PRESENT ILLNESS: Nilda Martin is a 57-year-old female with past medical history of diabetes mellitus type 2, hypertension with a history of microalbuminuria, chronic kidney disease stage III with a baseline creatinine of around 1.8 as of June 2018. She presented to the emergency room on November 11, 2018 with a headache, dizziness, vomiting and nausea with blurry vision. She was found to have elevated blood pressure was systolic blood pressure 296. She was not taking her medications at home because she ran out. Initial CT scan of the head was normal. She was given IV labetalol 20 mg in the emergency room. She was admitted under the medical service and the patient was started on beta dc and amlodipine for hypertension. Later on the patient was found to have acute kidney injury superimposed on chronic kidney disease with a creatinine of 2.1 and renal function continued to deteriorate and it has bumped up to a creatinine of 2.64. Moreover the patient was found to have 3+ proteinuria on the urinalysis so the nephrology service was called for further help in the management of this patient with hypertensive urgency, diabetes mellitus type 2, significant proteinuria, and acute kidney injury. I saw and evaluated the patient at the bedside today in the afternoon. She was getting IV fluid hydration for acute kidney injury. The patient denies any headache, nausea, vomiting at this time. She reports that she is feeling slightly better today as compared with 2 days ago when she came to the hospital. PAST MEDICAL HISTORY Hypertension, diabetes mellitus type 2, non-insulin dependent, hyperlipidemia, chronic kidney disease stage III; baseline creatinine of around 1.8 PAST SURGICAL HISTORY History of bioprosthetic mitral valve replacement, history of in the past. ALLERGIES NO KNOWN DRUG ALLERGIES. FAMILY HISTORY No significant family history of end-stage renal disease requiring hemodialysis. SOCIAL HISTORY The patient denies any smoking, illicit drug abuse or alcohol abuse. REVIEW OF SYSTEMS Constitutional: Patient denies any fevers or chills. Eyes: She denies any blurry vision or double vision. She did have blurry vision on arrival when she came to the hospital. ENT: She denies any dysphagia or odynophagia. Cardiovascular: She denies any chest pain or palpitation. Respiratory: She denies any shortness of breath. GI: She denies any nausea, vomiting at this time, but she did have nausea, vomiting when she came to the hospital. Genitourinary: She denies any dysuria, hematuria or dark urine. Musculoskeletal: She denies any muscle aches and pains. TACK CUTTER: The patient did have headache on arrival, but she denies any headache at this time. Skin: She denies any rashes or ulcers. Endocrine: She reports history of diabetes mellitus type 2. Hematological/Oncological: She denies any easy bleeding or bruising. All other review of systems is negative. PHYSICAL EXAMINATION General: The patient is awake, alert, oriented times three, laying in bed. No apparent distress. Vital signs: Temperature is 98 degrees Fahrenheit. Blood pressure 160/72 when I saw her. Pulses are 70, respiratory rate of 18, saturating 96% on room air. Head and neck examination: Extraocular muscles intact. Pupils equally round and reactive to light. Mucous membranes are moist. Neck is supple. There is no JVD. Cardiovascular: S1, S2, regular rate. 1+ edema of the bilateral lower extremities. Respiratory: Chest is clear to auscultation bilaterally. Bilateral equal air entry. No rales or rhonchi. Abdomen: Soft, positive bowel sounds. Nontender. No organomegaly. Genitourinary: Bladder is not palpable. Musculoskeletal: No clubbing or cyanosis. She has 1+ edema of the bilateral lower extremities and trace edema of the bilateral upper extremities. TACK CUTTER: No focal deficit. Power is 5/5 in all extremities. LABORATORY RESULTS: CBC showed WBC of 10.2, hemoglobin 12.1, platelets are 243, INR was 0.95 on arrival. Urinalysis done today showed 3+ protein, 3+, glucose, 2+ blood. Microalbumin 2, creatinine was more than 7 grams. BMP done on arrival showed a creatinine of 2.1, but BMP done today showed sodium 140, potassium 3.7, chloride 109, bicarb 22, BUN 38, creatinine is 2.6, calcium 7.8. IMAGING STUDIES Renal ultrasound was done today which showed no Doppler evidence of renal artery stenosis, essentially negative ultrasound. There was cholelithiasis and small volume of ascites and bilateral pleural effusions. CURRENT INPATIENT MEDICATIONS The patient's medications were all reviewed by me. She was getting half-normal saline at 100 mL an hour. She is on Tylenol as needed (p.r.n.), Mylanta p.r.n. for dyspepsia. She is on amlodipine 5 mg daily, but it was increased to 10 mg daily, aspirin 325 mg by mouth daily, Lipitor 20 mg daily, Coreg 6.25 mg by mouth twice a day, hydralazine 10 mg by mouth every 6 hourly was started today. She is on insulin Levemir 10 units subcu at bedtime, insulin lispro sliding scale, Zofran p.r.n. and Percocet p.r.n. for pain. ASSESSMENT 57-year-old female with acute kidney injury superimposed on chronic kidney disease stage III, diabetes mellitus type 2, hypertensive urgency and proteinuria. PLAN 1. Acute kidney injury superimposed on chronic kidney disease stage III, most likely is associated with hypertensive urgency. The patient does not need IV fluids at this time. She has evidence of fluid overload clinically and she has bilateral pleural effusions and moderate amount of ascites. I am stopping the IV fluids. I have started the patient on Lasix 40 mg IV one dose today in the afternoon and one dose in the evening. Renal ultrasound did not show any abnormality. 2. Proteinuria. The patient has significant proteinuria and mild amount of hematuria. Again it can be secondary to uncontrolled hypertension. Although the patient is diabetic I will control her blood pressure first. I would not use the TERESA inhibitors at this time because of acute renal failure. However, TERESA inhibitors will be restarted once the renal function improves back to baseline. To rule out the possibility of any other disease causing proteinuria and acute kidney injury I have planned all the proteinuria workup including the autoimmune serology, SPEP, UPEP and 24-hour urine creatinine and protein. No urgent need of renal biopsy at this time. 3. Hypertensive urgency. The patient used to be on lisinopril as outpatient with metoprolol but because of acute renal failure, medications have been changed. She is currently on Coreg 6.25 mg by mouth twice a day. Primary team has already increased amlodipine to 10 mg daily and I believe with optimization of fluid status and diuresis with Lasix it will help improve the blood pressure. 4. Diabetes mellitus type 2. Okay to continue insulin sliding scale and insulin Levemir. She is not a candidate for metformin use at this time in acute renal failure. Thank you for involving me in the care of this patient. I shall be happy to follow the patient along with you tomorrow morning.
[2018-11-13] MEDS: LEVEMIR (INSULIN DETEMIR) 1 UNITS/0.01ML SC SCH (21:20)
[2018-11-13 23:36] VITALS: BP 132/62
[2018-11-14] VITALS (7 sets, daily range): BP systolic 150–198; BP diastolic 76–100
[2018-11-14] MEDS: ONDANSETRON 4MG/2ML VIAL (J2405) IV PRN ×4 (04:30→18:26)
[2018-11-14] MEDS: **hydrALAZINE** 10 MG TAB PO SCH (04:30)
[2018-11-14 05:59] LABS: HEMATOCRIT 29.1 % (36.0-47.0); HEMOGLOBIN 9.8 g/dl (12.0-15.5); MEAN CORPUSCULAR HEMOGLOBIN 28.1 pg (27.0-33.0); MEAN CORPUSCULAR HGB CONC 33.7 g/dl (32.0-36.5); MEAN CORPUSCULAR VOLUME 83.4 fl (80.0-96.0); PLATELET COUNT, AUTOMATED 198 10^3/uL (150-450); RED BLOOD COUNT 3.49 10^6/uL (4.00-5.40); WHITE BLOOD COUNT 7.1 10^3/uL (4.0-10.0)
[2018-11-14 08:15] LABS: CALCIUM LEVEL 7.8 MG/DL (8.5-10.1); CREATININE FOR GFR 2.98 MG/DL (0.55-1.30); GLOMERULAR FILTRATION RATE 17.3 (>51); POTASSIUM SERUM 3.9 MEQ/L (3.5-5.1)
[2018-11-14 09:01] LABS: HEPATITIS B SURFACE ANTIBODY NEGATIVE (POSITIVE)
[2018-11-14] MEDS: amLODIPine 10 MG TAB PO SCH (09:05)
[2018-11-14] MEDS: ATORVASTATIN 20 MG TAB PO SCH (09:05)
[2018-11-14] MEDS: HumaLOG INSULIN (NovoLOG) PER UNIT SC SCH ×4 (09:06→21:00)
[2018-11-14] MEDS: ASPIRIN 325 MG TAB PO SCH (09:06)
[2018-11-14] MEDS: CARVedilol 6.25 MG TAB PO SCH ×2 (09:06→22:00)
[2018-11-14 09:11] LABS: HEPATITIS B SURFACE ANTIGEN NEGATIVE (NEGATIVE)
[2018-11-14 09:40] LABS: HEPATITIS B CORE ANTIBODY IGM NEGATIVE (NEGATIVE)
[2018-11-14] MEDS ORDERED: LABETALOL HCL 100 MG/20 ML VIAL IV ONE (10:00)
--- NOTE | 2018-11-14 10:40 | IPNPDOC ---
Subjective Date Seen The patient was seen on 11/14/18. Subjective Chief Complaint/HPI Patient lying in bed eating breakfast as I entered the room. No events overnight. She reports some nausea Constitutional: Denies: Chills, Fever ENT: Reports: Head Aches Pulmonary: Denies: Dyspnea, Cough Cardiovascular: Denies: Chest Pain, Palpitations, Orthopnea, Edema Gastrointestinal: Reports: Nausea; Denies: Vomiting, Abdominal Pain Genitourinary: Denies: Dysuria Neurological: Reports: Other Symptoms (Reports an "off balance/dizzy" feeling in her head when she sits up) Psych: Reports: Mood Normal Objective Physical Examination General Exam: Positive: Alert, Cooperative, No Acute Distress ENT Exam: Positive: Atraumatic, Mucous membr. moist/pink Neck Exam: Positive: Supple; Negative: JVD Chest Exam: Positive: Clear to auscultation, Normal air movement Heart Exam: Positive: Rate Normal, Regular Rhythm, Murmurs (2-3 systolic murmur at base) Abdomen Exam: Positive: Normal bowel sounds, Soft, Other (no bruit noted); Negative: Tenderness Extremity Exam: Positive: Edema (trace edema), Normal pulses Skin Exam: Positive: Nl turgor and temperature, Other skin issue (grime on skin of feet, elbows.); Negative: Rash, Breakdown Neuro Exam: Positive: Normal Speech, Strength at 5/5 X4 ext, Normal Tone, Sensation Intact, Cranial Nerves 3-12 NL Psych Exam: Positive: Mental status NL, Mood NL, Oriented x 3; Negative: Anxiety Assessment /Plan Problems (1) Hypertensive urgency Status: Acute Response to Treatment: Improving Problem Text: 11/14/18:Pressures remain elevated. Hyrdalazine added to current regimen. We will continue to monitor 11/13/18: Increase Amlodipine to 10mg. Continue with beta dc. Renal u/s negative for ROYAL change to carvedilol to replace metoprolol, add amlodipine, titrate both to effect. d/c lisinopril d/t acute renal failure. Will request renal u/s. (2) Diabetes mellitus Status: Chronic Response to Treatment: Stable Problem Text: 11/14/18: BG 166 this morning 11/13/18: Starting basal insulin Last A1c in the low 8's. Not on insulin at home, just using glipizide (3) Acute renal failure Status: Acute Response to Treatment: Worse Problem Text: 11/14/18: Nephrology continues to follow. Renal function continues to slowly decline. Believed to be associated with hypertensive urgency. She was given two dose of IV Lasix yesterday. Proteinuria workup by nephrology 11/13/18: Renal function slightly worse. Nephrology consulted Creatinine worse compared to admission and compared to record of 06/2018. Etiology could be poor dm control, inadequate bp control or other cause. she looks a little dry so will continue gentle hydration while bp meds are adjusted and stop TERESA-i for now. (4) Stage 4 chronic kidney disease due to diabetes mellitus Status: Chronic Response to Treatment: Worse Problem Text: 11/14/18: As stated above has been on lisinopril with creatinine 1.89 when last checked with evidence of poor control at that time. (5) Heart murmur Status: Acute Response to Treatment: Stable Problem Text: not noted on last outpt encounter. will request Echo to evaluate (6) Head ache Status: Acute Problem Text: 11/14/18: Day 2 of headache and "off balance/dizzy" feeling in her head. CT scan unremarkable. This may be secondary to her HTN. We will obtain MRI for further eval. also add promethazine 12.5mg IV prn nausea/vertigo. Plan/VTE VTE Prophylaxis Ordered?: No VTE Exclusion Mechanical Proph: Low Risk for VTE VTE Exclusion Pharmacological: At Low Risk for VTE Plan IVF: Initiate Activity: Encourage Ambulation Diagnostics: Repeat Labs in AM Anticipated Discharge: Home VS, I&O, 24H, Avery Vital Signs/I&O Vital Signs Date Time Temp Pulse Resp B/P (MAP) Pulse Ox O2 Delivery O2 Flow Rate FiO2 11/14/18 09:06 70 11/14/18 09:05 190/90 11/14/18 07:19 97.1 18 96 11/11/18 22:00 Room Air I&O- Last 24 Hours up to 6 AM 11/14/18 06:00 Intake Total 790 ml Output Total 2250 ml Balance -1460 ml Laboratory Data 24H LABS Laboratory Tests 2 11/13/18 12:14: Total Protein (PEP) 4.8L, Complement C3 107, Complement C4 31, Hepatitis B Surface Antigen NEGATIVE, Hepatitis B Surface Antibody NEGATIVE, Hepatitis B Core IgM Antibody NEGATIVE, Hepatitis C Antibody Index 0.0 11/13/18 12:15: Erythrocyte Sedimentation Rate 22 11/13/18 12:17: Bedside Glucose (Misc Panel) 169H 11/13/18 18:04: Bedside Glucose (Misc Panel) 146H 11/13/18 20:35: Bedside Glucose (Misc Panel) 168H 11/14/18 05:41: Anion Gap 9, Glomerular Filtration Rate 17.3L, Blood Urea Nitrogen 40H, C reatinine 2.98H, Sodium Level 142, Potassium Level 3.9, Chloride Level 108H, Carbon Dioxide Level 25, Calcium Level 7.8L 11/14/18 05:42: Nucleated Red Blood Cells % (auto) 0.0 CBC/BMP Laboratory Tests 11/14/18 05:41 Calcium Level 7.8 L 11/14/18 05:42 Red Blood Count 3.49 L, Mean Corpuscular Volume 83.4, Mean Corpuscular Hemoglobin 28.1, Mean Corpuscular Hemoglobin Concent 33.7, Red Cell Distribution Width 14.1 LOVE RAMOS Nov 14, 2018 10:40 Lonnie Graves MD Nov 14, 2018 13:02
[2018-11-14] MEDS ORDERED: FUROSEMIDE 40 MG/4 ML VIAL (J1940) IV ONE (11:30)
[2018-11-14] MEDS ORDERED: hydrALAZINE INJ 20 MG/ML VIAL IV ONE (11:30)
[2018-11-14] MEDS: MAALOX 30 ML SUSP *UDC PO PRN (11:55)
[2018-11-14] MEDS ORDERED: HEPARIN SOD (PORCINE) 5000 UNITS/ML VIAL SQ SCH (14:00)
[2018-11-14] MEDS: ACETAMINOPHEN TAB 650MG DOSE (2X325MG) PO PRN (14:10)
[2018-11-14] MEDS: **hydrALAZINE HCL** 25 MG TAB PO SCH ×2 (14:11→22:00)
--- NOTE | 2018-11-14 15:49 | REPVR ---
PROCEDURE INFORMATION: Exam: MR Head Without Contrast Exam date and time: 11/14/2018 2:05 PM Clinical history: 57 years old, female; Patient HX: Dizziness, chills/sweats, nausea, vomitting; Additional info: Hypertensive encephalopathy, ? CVA TECHNIQUE: Imaging protocol: MR of the head without contrast. COMPARISON: CT Head without contrast 11/11/2018 6:16 PM FINDINGS: Brain: There is susceptibility in the lateral right cerebellum where a hyperdensity is seen on CT consistent with recent hemorrhage. There is also multiple foci of susceptibility in the bilateral cerebellar hemispheres, joel, left lateral putamen and left posterior parietal subcortical white matter with a possible focus above the right lateral ventricle. These could reflect multiple cavernoma although the usual complexity seen with these lesions is not observed. Chronic hypertensive encephalopathy can produce these findings, particularly in view of the extensive deep cerebral white matter changes. There is a 7 mm focus of diffusion restriction in the right putamen suggesting an acute lacunar infarct on image 904:17. A similar focus is seen in the left thalamus on image 18. Although there is increased DWI signal anterior to the right frontal horn on image 18 and also in the left parietal white matter on images 20 and 21 with no reduction of ADC signal to suggest an acute infarct although a subacute infarct could have this appearance. Ventricles: Normal. No ventriculomegaly. Bones/joints: Unremarkable. Soft tissues: Unremarkable. Sinuses: Normal as visualized. No acute sinusitis. Mastoid air cells: Normal as visualized. No mastoid effusion. Orbits: Unremarkable. IMPRESSION: 1. There is susceptibility in the lateral right cerebellum where a hyperdensity is seen on CT consistent with recent hemorrhage. 2. There is also multiple foci of susceptibility in the bilateral cerebellar hemispheres, joel, left lateral putamen and left posterior parietal subcortical white matter with a possible focus above the right lateral ventricle. These could reflect multiple cavernoma although the usual complexity seen with these lesions is not observed. Chronic hypertensive encephalopathy can produce these findings, particularly in view of the extensive deep cerebral white matter changes. 3. There is a 7 mm focus of diffusion restriction in the right putamen suggesting an acute lacunar infarct on image 904:17. A similar focus is seen in the left thalamus on image 18. Although there is increased DWI signal anterior to the right frontal horn on image 18 and also in the left parietal white matter on images 20 and 21 with no reduction of ADC signal to suggest an acute infarct although a subacute infarct could have this appearance. Electronically signed by: Dean Mccormick On 11/14/2018 15:49:16 PM
[2018-11-14 19:33] LABS: URINE TOTAL PROTEIN 196.2 MG/DL (0-12)
[2018-11-14 19:34] LABS: CREATININE CLEARANCE, URINE 16.8 ML/MIN (75-115); CREATININE, URINE 34.5 MG/DL
[2018-11-14] MEDS: LEVEMIR (INSULIN DETEMIR) 1 UNITS/0.01ML SC SCH (22:00)
[2018-11-14] MEDS: PROMETHAZINE INJ 25 MG/ML VIAL (J2550) IV PRN (22:08)
[2018-11-15] VITALS (7 sets, daily range): BP systolic 136–182; BP diastolic 62–82
[2018-11-15 00:06] LABS: C-PEPTIDE 5.2 ng/mL (1.1-4.4); ISLET CELL ANTIBODIES Negative (Neg:<1:1)
[2018-11-15] MEDS: **hydrALAZINE HCL** 25 MG TAB PO SCH ×3 (05:14→21:21)
[2018-11-15 05:56] LABS: HEMATOCRIT 30.3 % (36.0-47.0); HEMOGLOBIN 10.1 g/dl (12.0-15.5); MEAN CORPUSCULAR HGB CONC 33.3 g/dl (32.0-36.5); MEAN CORPUSCULAR VOLUME 83.9 fl (80.0-96.0); PLATELET COUNT, AUTOMATED 213 10^3/uL (150-450); RED BLOOD COUNT 3.61 10^6/uL (4.00-5.40); WHITE BLOOD COUNT 7.1 10^3/uL (4.0-10.0)
[2018-11-15 06:17] LABS: CALCIUM LEVEL 7.7 MG/DL (8.5-10.1); CREATININE FOR GFR 2.86 MG/DL (0.55-1.30); GLOMERULAR FILTRATION RATE 18.2 (>51); POTASSIUM SERUM 3.6 MEQ/L (3.5-5.1)
--- NOTE | 2018-11-15 06:33 | ECHO ---
DATE OF PROCEDURE: 11/14/2018 DATE OF : 1960 AGE: 57 GENDER: Female HEIGHT: 58 inches WEIGHT: 127 pounds BODY SURFACE AREA: 1.5 m2 INPATIENT: PCU Room 3228 REFERRING PHYSICIAN: Dr. Lonnie Graves INDICATION: Murmur. MEASUREMENTS: 2-D Measurements: RV: 4.2 cm LV: 4.8 cm Septum: 1.1 cm Posterior wall: 1.1 cm Aortic root: 2.8 cm LA: 3.6 cm LVEF: 75% Doppler Measurements: AV: 2.17 m/s LVOT: 0.84 m/s LVOT diameter: 1.8 cm Mean AV gradient: 10 mmHg Dimensionless index: 0.38 MV: E: 159, A: 69, EA ratio: 2.3 Early mitral deceleration time: 250 ms PV: 1.2 m/s Pulmonary artery acceleration time: 85 ms RVSP: 57 mmHg IVC: 1.6 cm COMMENTS: Normal sinus rhythm without intraventricular conduction disturbance. M-mode and two-dimensional echocardiography was performed with pulsed, continuous wave, color flow and tissue Doppler studies. Left ventricular wall thickness upper limits of normal with hyperkinetic wall motion. Left atrial size was upper limits of normal. Borderline right heart chamber enlargement with normal wall motion with Doppler evidence of at least moderately severe pulmonary hypertension. Normal IVC size with virtually absent respiratory collapse in keeping with an elevated central venous pressure. Aortic valve appears to be a bioprosthetic with appropriate function for this structure and only trace insufficiency. Thickened mitral valvular apparatus with adequate leaflet excursion and no posterior systolic buckling but at least moderate insufficiency. Normal appearing tricuspid valve with moderate insufficiency. No apparent intracardiac mass or pericardial effusion. MTDD
[2018-11-15] MEDS: ATORVASTATIN 20 MG TAB PO SCH (08:21)
[2018-11-15] MEDS: ASPIRIN 81 MG ENTERIC TAB PO SCH (08:21)
[2018-11-15] MEDS: CARVedilol 6.25 MG TAB PO SCH ×2 (08:22→21:21)
[2018-11-15] MEDS: amLODIPine 10 MG TAB PO SCH (08:23)
[2018-11-15] MEDS: HumaLOG INSULIN (NovoLOG) PER UNIT SC SCH ×4 (08:27→21:00)
[2018-11-15] MEDS ORDERED: SPIRONOLACTONE 25 MG TAB PO ONE (11:30)
--- NOTE | 2018-11-15 13:44 | IPN ---
DATE OF SERVICE: 11/14/2018 SUBJECTIVE: The patient was seen and examined at the bedside today morning. The patient reports that she is feeling some lightheadedness. She was given Lasix yesterday. Intravenous (IV) fluids are stopped. She made almost 2 liters of urine with Lasix injections. Blood pressure was very well-controlled yesterday. It had come down to 130. However, it bumped up again to 180s-190 systolic this morning. Renal function continues to deteriorate. Creatinine is up to 2.9 today. OBJECTIVE: Vital signs: Temperature is 98 degrees Fahrenheit. Blood pressure today morning was 198/100, pulse was 59, respiratory rate of 18, saturating 96% on room air. Intake and output: Urine output recorded yesterday was 2 liters. Urine output so far today since overnight is 1.5 liters. Weight in the bed scale is 57.9 kg. PHYSICAL EXAMINATION: General: The patient is awake, alert, oriented times three, laying in bed, in no apparent distress. Head and neck exam: Extraocular muscles intact. Pupils equally round and reactive to light. Mucous membranes are moist. Neck is supple. There is no jugular venous distention (JVD). Cardiovascular: S1, S2, regular rate. No edema of the bilateral lower extremities. Respiratory: Chest is clear to auscultation bilaterally. Bilateral equal air entry. No rales or rhonchi. Abdomen: Soft, positive bowel sounds. Nontender. No organomegaly. Musculoskeletal: No clubbing or cyanosis. Pulses are 2+. Central nervous system (CUSTOMER ACCOUNT MANAGER): No focal deficit. Power is 5/5 in all extremities. LAB REVIEW: CBC showed WBC of 7.1, hemoglobin 9.8, platelets of 198. 24-hour urine protein came back as 4 grams. BMP done today showed sodium 142, potassium 3.9, chloride 108, bicarbonate 25, BUN 40, creatinine 2.9, calcium 7.8. IMMUNOLOGY: All the serology is pending so far apart from C3 and C4 level which are within the normal range. IMAGING: An MRI of the brain was ordered by the primary team because of persistent headache. That shows a recent hemorrhage in the right cerebellum. Multiple foci of susceptibility in bilateral cerebral hemispheres, joel, left lateral protamine and left posterior parietal subcortical white matter. These could reflect multiple cavernoma. CURRENT INPATIENT MEDICATIONS: The patient's medications were all reviewed by me. Her aspirin has been stopped now. Amlodipine dose was increased to 10 mg by mouth daily. She has been started on low dose of aspirin 81 mg by mouth daily. She continues to be on Coreg 6.25 mg by mouth twice a day. I gave her another dose of Lasix 40 mg IV times one dose. Hydralazine dose has been increased to 25 mg by mouth every 8 hours. I also gave her one dose of hydralazine 20 mg IV, and she was also given Phenergan injection for nausea. ASSESSMENT/PLAN: 1. Acute kidney injury superimposed on chronic kidney disease, stage III. Most likely it is associated with hypertensive urgency. The patient also has significant proteinuria, which can happen, and hypertensive urgency as well. The patient's antihypertensive regimen has been changed. She was also given another dose of Lasix 40 mg IV. No urgent need of hemodialysis. Proteinuria workup is still pending. Although, the patient has 4 grams of protein. It is an acute hypertensive urgency, so it is not very reliable. 2. Proteinuria. 24-hour urine protein is 4 grams, however an elevated blood pressure can increase protein secretion. All the autoimmune serology and SPEP results are still pending. 3. Hypertensive urgency. The patient is currently on Coreg 6.25 mg by mouth twice a day, amlodipine 10 mg daily. Hydralazine dose has been increased to 25 mg every 8 hours, and she was also given a dose of hydralazine 20 mg IV times one dose. I see the latest blood pressures are in 150s, which are acceptable for now. Rest of the antihypertensive management will be done tomorrow. 4. Diabetes mellitus, type 2. Continue insulin sliding scale and insulin Levemir. 5. 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 I see that the primary team has decreased the aspirin from 325 to 81 mg by mouth daily. Rest of the management of these abnormal findings is as per primary team and neurology recommendations. Nephrology service will just manage the renal failure and blood pressure at this time. Given recent stroke, I would avoid aggressively lowering the blood pressure.
--- NOTE | 2018-11-15 17:57 | IPNPDOC ---
Subjective Date Seen The patient was seen on 11/15/18. Subjective Chief Complaint/HPI Ms. Martin's main complaint today is her lack of bowel movement. Her blood pressures are improved with adjusted regimen. Nephrology is assisting with the blood pressure medication changes. I spoke to her about the MRI findings. She was concerned to find out she had small areas of bleeding in her brain. She denies any focal weakness or specific neurologic findings. She does report a sense of head fogginess when she sits or stands. She denies faraz orthostatic symptoms. She denies any vertigo. It does not seem that this head fog resolves with time. General: Reports: Normal Appetite Pulmonary: Denies: Dyspnea, Cough Cardiovascular: Denies: Chest Pain, Palpitations Gastrointestinal: Denies: Nausea, Vomiting Genitourinary: Denies: Dysuria Neurological: Reports: Other Symptoms (lightheadedness reported as a "head fog"); Denies: Weakness, Numbness, Change in speech Psych: Reports: Mood Normal Objective Physical Examination General Exam: Positive: Alert, Cooperative, No Acute Distress (she is resting in her bed watching TV when I enter the room) Eye Exam: Positive: Conjunctiva & lids normal; Negative: Sclera icteric ENT Exam: Positive: Atraumatic, Mucous membr. moist/pink, Tongue Midline Neck Exam: Positive: Supple; Negative: JVD Chest Exam: Positive: Clear to auscultation, Normal air movement Heart Exam: Positive: Rate Normal, Regular Rhythm, Murmurs (2-3 systolic murmur at base) Abdomen Exam: Positive: Normal bowel sounds, Soft; Negative: Tenderness Extremity Exam: Negative: Edema Skin Exam: Positive: Nl turgor and temperature Neuro Exam: Positive: Normal Speech, Strength at 5/5 X4 ext (bilateral biceps, triceps, deltoids, hip flexors, knee flexors and extensors, plantar flexors and dorsiflexors were all specifically tested), Normal Tone, Cranial Nerves 3-12 NL, Reflexes 2+ (patellar and brachioradialis bilaterally), Other (no dysdiadochokinesia, normal [id number], normal finger to nose, no pronator drift, Romberg test is negative) Psych Exam: Positive: Mental status NL, Mood NL, Oriented x 3; Negative: Anxiety Assessment /Plan Problems (1) Hypertensive urgency Status: Acute Response to Treatment: Improving Problem Text: 11/15/18: Hydralazine dose was increased by nephrology today. Her blood pressures are coming under better control with her typical systolic numbers being in the 130s or 140s today. Appreciate nephrology's assistance with management. 11/14/18:Pressures remain elevated. Hyrdalazine added to current regimen. We will continue to monitor 11/13/18: Increase Amlodipine to 10mg. Continue with beta dc. Renal u/s negative for ROYAL change to carvedilol to replace metoprolol, add amlodipine, titrate both to effect. d/c lisinopril d/t acute renal failure. Will request renal u/s. (2) Cerebrovascular accident (CVA) of uncertain pathology Status: Acute Discussed With: Nurse, Patient Problem Specific Plan: Monitor Clinically Problem Text: She appears to have several small areas of new (acute) hemorrhage. There are also areas that could be hemorrhage versus acute on chronic hypertensive encephalopathy. Regardless it is clear that her uncontrolled blood pressure is having a very negative effect on her brain. I had a faraz discussion with her about this. Fortunately I don't see any specific deficit. I suspect that her sense of lightheadedness relates to these new lesions. I will ask neurology to see her tomorrow. One question I have is whether we should entirely stop her aspirin or leave her on the reduced dose of 81 mg as was changed yesterday. I have also asked physical and occupational therapy to see her; perhaps they will find functional deficits. (3) Head ache Status: Acute Discussed With: Patient Problem Specific Plan: Monitor Clinically Problem Text: 11/15/18: In retrospect I think this symptom may be related to the multiple small hemorrhages. Probably the one(s) in the cerebellum or joel more specifically. 11/14/18: Day 2 of headache and "off balance/dizzy" feeling in her head. CT scan unremarkable. This may be secondary to her HTN. We will obtain MRI for further eval. also add promethazine 12.5mg IV prn nausea/vertigo. (4) Diabetes mellitus Status: Chronic Response to Treatment: Stable Problem Text: 11/15/18: Her blood glucose levels are still running fairly high although she did have a 137 earlier today. I'll keep track of how much sliding scale insulin coverage she is receiving in the next 24 hours and consider adding half of this to her basal insulin for tomorrow night's dose. 11/14/18: BG 166 this morning 11/13/18: Starting basal insulin Last A1c in the low 8's. Not on insulin at home, just using glipizide (5) Acute renal failure Status: Acute Response to Treatment: Worse Problem Text: 11/15/18: Her renal function is starting to have the right way, although it's a very slow improvement. Appreciate nephrology's assistance with ongoing management. 11/14/18: Nephrology continues to follow. Renal function continues to slowly decline. Believed to be associated with hypertensive urgency. She was given two dose of IV Lasix yesterday. Proteinuria workup by nephrology 11/13/18: Renal function slightly worse. Nephrology consulted Creatinine worse compared to admission and compared to record of 06/2018. Etiology could be poor dm control, inadequate bp control or other cause. she looks a little dry so will continue gentle hydration while bp meds are adjusted and stop TERESA-i for now. (6) Stage 4 chronic kidney disease due to diabetes mellitus Status: Chronic Response to Treatment: Worse Problem Text: 11/15/18: Nephrology is causing this acute on chronic stage III renal disease. We'll continue to monitor her improvement. 11/14/18: As stated above has been on lisinopril with creatinine 1.89 when last checked with evidence of poor control at that time. (7) Constipation Discussed With: Nurse, Patient Problem Text: I added Senokot-S at night to her regimen. Monitor. (8) Heart murmur Status: Acute Response to Treatment: Stable Problem Text: not noted on last outpt encounter. will request Echo to evaluate Plan/VTE VTE Prophylaxis Ordered?: Yes (TEDs) VTE Exclusion Mechanical Proph: N/A:VTE Prophy Ordered VTE Exclusion Pharmacological: Hemorrhage Plan Activity: Encourage Ambulation Therapy: PT, OT Medications: Bowel Regimen Diagnostics: Repeat Labs in AM Anticipated Discharge: Home VS, I&O, 24H, Fishbone Vital Signs/I&O Vital Signs Date Time Temp Pulse Resp B/P (MAP) Pulse Ox O2 Delivery O2 Flow Rate FiO2 11/15/18 16:00 96.7 60 18 136/80 (98) 99 11/11/18 22:00 Room Air I&O- Last 24 Hours up to 6 AM 11/15/18 06:00 Intake Total 600 ml Output Total 1400 ml Balance -800 ml Laboratory Data 24H LABS Laboratory Tests 2 11/14/18 21:48: Bedside Glucose (Misc Panel) 137H 11/15/18 05:37: Nucleated Red Blood Cells % (auto) 0.0, Anion Gap 8, Glomerular Filtration Rate 18.2L, Blood Urea Nitrogen 39H, Creatinine 2.86H, Sodium Level 144, Potassium Level 3.6, Chloride Level 109H, Carbon Dioxide Level 27, Calcium Level 7.7L 11/15/18 12:07: Bedside Glucose (Misc Panel) 199H 11/15/18 16:57: Bedside Glucose (Misc Panel) 200H CBC/BMP Laboratory Tests 11/15/18 05:37 Red Blood Count 3.61 L, Mean Corpuscular Volume 83.9, Mean Corpuscular Hemoglobin 28.0, Mean Corpuscular Hemoglobin Concent 33.3, Red Cell Distribution Width 14.3, Calcium Level 7.7 L Alton Fitzpatrick MD Nov 15, 2018 17:57
[2018-11-15] MEDS: LEVEMIR (INSULIN DETEMIR) 1 UNITS/0.01ML SC SCH (21:20)
[2018-11-15] MEDS: SENOKOT S TAB PO SCH (21:21)
[2018-11-16] VITALS (10 sets, daily range): BP systolic 142–214; BP diastolic 70–100
[2018-11-16] MEDS: **hydrALAZINE HCL** 25 MG TAB PO SCH ×2 (04:37→13:32)
[2018-11-16 05:41] LABS: HEMATOCRIT 33.8 % (36.0-47.0); HEMOGLOBIN 11.5 g/dl (12.0-15.5); MEAN CORPUSCULAR HEMOGLOBIN 29.1 pg (27.0-33.0); MEAN CORPUSCULAR VOLUME 85.6 fl (80.0-96.0); PLATELET COUNT, AUTOMATED 235 10^3/uL (150-450); RED BLOOD COUNT 3.95 10^6/uL (4.00-5.40); WHITE BLOOD COUNT 7.8 10^3/uL (4.0-10.0)
[2018-11-16 06:01] LABS: CALCIUM LEVEL 7.8 MG/DL (8.5-10.1); CREATININE FOR GFR 2.58 MG/DL (0.55-1.30); GLOMERULAR FILTRATION RATE 20.5 (>51); POTASSIUM SERUM 3.9 MEQ/L (3.5-5.1)
[2018-11-16] MEDS: SPIRONOLACTONE 25 MG TAB PO SCH (07:18)
[2018-11-16] MEDS: ASPIRIN 81 MG ENTERIC TAB PO SCH (07:18)
[2018-11-16] MEDS: ATORVASTATIN 20 MG TAB PO SCH (07:18)
[2018-11-16] MEDS: CARVedilol 6.25 MG TAB PO SCH ×2 (07:20→21:25)
[2018-11-16] MEDS: amLODIPine 10 MG TAB PO SCH (07:20)
[2018-11-16] MEDS: HumaLOG INSULIN (NovoLOG) PER UNIT SC SCH ×4 (07:21→21:00)
--- NOTE | 2018-11-16 09:59 | IPN ---
DATE OF VISIT: 11/15/2018 Mrs. Martin is seen this morning on her bedside. She is feeling better and denies any headache, dyspnea or chest pain. She was admitted with hypertensive urgency and noticed to have advanced renal insufficiency and proteinuria. Her kidney function has not changed any significantly since admission. Her blood pressure control has improved. She denies any nausea, vomiting, dyspnea or chest pain. On physical exam, temperature 97.3 degrees Fahrenheit, heart rate 58 per minute and respiratory rate 16 per minute. Blood pressure 152/72 mmHg and oxygen saturation 96% on room air. Intake and output records from yesterday showed total intake 750 and output 1550 mL. Head is atraumatic. Neck is supple and jugular venous distention (JVD) is about 6 cm above sternal angle. Thyroid is not enlarged and trachea is midline. Heart sounds are regular and lungs clear to auscultation. Abdomen soft and nontender and bowel sounds are normal. Extremities without any cyanosis or clubbing. Today's labs show sodium 144, potassium 3.6, CO2 27, BUN 39 and creatinine 2.86. Glucose 141 and calcium 7.7. WBC count is 7.1, hemoglobin 10.1 and hematocrit 30.3. Her urine total protein was noticed to be 196 mg/dL and 24-hour urine protein is 4011 mg. PROBLEMS: 1. Hypertensive crisis. Patient was admitted with hypertensive urgency. Her blood pressure control has improved on current medications and she is feeling much better now. 2. Acute renal failure. Renal ultrasound negative for hydronephrosis. No evidence for renal artery stenosis on the ultrasound. Kidneys are average size with slightly increased echogenicity. At this point, we will continue to monitor closely. Her complements have come back within normal range with C3 107 and C4 31. Rest of the serology including HORTENCIA, ANCA, glomerular basement membrane and free kappa and lambda light chains are still pending. 3. Hypokalemia. Her potassium level is borderline low and I will start her on low-dose spironolactone with 25 mg one dose today and one dose daily.
[2018-11-16] MEDS: PROMETHAZINE INJ 25 MG/ML VIAL (J2550) IV PRN (12:57)
[2018-11-16] MEDS: ACETAMINOPHEN TAB 650MG DOSE (2X325MG) PO PRN (12:57)
--- NOTE | 2018-11-16 16:05 | IPNPDOC ---
Subjective Date Seen The patient was seen on 11/16/18. Subjective Chief Complaint/HPI Nilda's BP remains quite difficult to control. She is worried about what it going on. I spoke with Dr. 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 I also spoke with the patient's oldest daughter, Estrella, and updated her on her mother's conditions. General: Reports: Normal Appetite Constitutional: Denies: Chills, Fever Eyes: Reports: Vision change ENT: Reports: Head Aches Pulmonary: Denies: Dyspnea, Cough Cardiovascular: Denies: Chest Pain, Palpitations Neurological: Reports: Other Symptoms (dysequilibrium when she moves around) Psych: Reports: Mood Normal Objective Physical Examination General Exam: Positive: Alert, Cooperative, No Acute Distress (she is laying in her bed talking with her daughter on the phone when I enter the room) Eye Exam: Positive: Conjunctiva & lids normal; Negative: Sclera icteric ENT Exam: Positive: Atraumatic, Mucous membr. moist/pink Neck Exam: Positive: Supple, Lymphadenopathy Chest Exam: Positive: Clear to auscultation, Normal air movement Heart Exam: Positive: Rate Normal, Regular Rhythm, Gallops ( hint of an S4 gallop, but it is not consistently noted), Murmurs (2-3 systolic murmur at base) Abdomen Exam: Positive: Normal bowel sounds, Soft; Negative: Tenderness Extremity Exam: Negative: Edema Skin Exam: Positive: Nl turgor and temperature Neuro Exam: Positive: Normal Speech, Normal Tone Psych Exam: Positive: Anxiety, Memory Intact, Oriented x 3; Negative: Mental status NL, Mood NL Assessment /Plan Problems (1) Hypertensive urgency Status: Acute Response to Treatment: Improving Problem Text: 11/16/18: In the afternoon her hydralazine dose was further inc reased to 50mg Q6h to try to control her BP more. I spoke with Dr. Dudley about preferred options and this was the one he supports. 11/15/18: Hydralazine dose was increased by nephrology today. Her blood pressures are coming under better control with her typical systolic numbers being in the 130s or 140s today. Appreciate nephrology's assistance with management. 11/14/18:Pressures remain elevated. Hyrdalazine added to current regimen. We will continue to monitor 11/13/18: Increase Amlodipine to 10mg. Continue with beta dc. Renal u/s negative for ROYAL change to carvedilol to replace metoprolol, add amlodipine, titrate both to effect. d/c lisinopril d/t acute renal failure. Will request renal u/s. (2) Cerebrovascular accident (CVA) of uncertain pathology Status: Acute Discussed With: Nurse, Patient Problem Specific Plan: Monitor Clinically Problem Text: Fortunately I don't see any specific deficit. I suspect that her sense of lightheadedness relates to these new lesions. Dr. Salas of neurology saw her today and ordered another MRI. I did communicate with the [facility] home companion radiologist. He was more impressed with fairly widespread areas of edema that he felt were not adequately described on the previous exam. One question I have for neurology is whether we should entirely stop her aspirin or leave her on the reduced dose of 81 mg as was changed yesterday. I have also asked physical and occupational therapy to see her; perhaps they will find functional deficits. (3) Head ache Status: Acute Discussed With: Patient Problem Specific Plan: Monitor Clinically Problem Text: 11/15/18: In retrospect I think this symptom may be related to the multiple small hemorrhages. Probably the one(s) in the cerebellum or joel more specifically. 11/14/18: Day 2 of headache and "off balance/dizzy" feeling in her head. CT scan unremarkable. This may be secondary to her HTN. We will obtain MRI for further eval. also add promethazine 12.5mg IV prn nausea/vertigo. (4) Diabetes mellitus Status: Chronic Response to Treatment: Stable Problem Text: 11/15/18: Her blood glucose levels are still running fairly high although she did have a 137 earlier today. I'll keep track of how much sliding scale insulin coverage she is receiving in the next 24 hours and consider adding half of this to her basal insulin for tomorrow night's dose. 11/14/18: BG 166 this morning 11/13/18: Starting basal insulin Last A1c in the low 8's. Not on insulin at home, just using glipizide (5) Acute renal failure Status: Acute Response to Treatment: Worse Problem Text: Her renal function is heading the right way, although it's a very slow improvement. Appreciate nephrology's assistance with ongoing management. 11/14/18: Nephrology continues to follow. Renal function continues to slowly decline. Believed to be associated with hypertensive urgency. She was given two dose of IV Lasix yesterday. Proteinuria workup by nephrology 11/13/18: Renal function slightly worse. Nephrology consulted Creatinine worse compared to admission and compared to record of 06/2018. Etiology could be poor dm control, inadequate bp control or other cause. she looks a little dry so will continue gentle hydration while bp meds are adjusted and stop TERESA-i for now. (6) Stage 4 chronic kidney disease due to diabetes mellitus Status: Chronic Response to Treatment: Worse Problem Text: 11/15/18: Nephrology is causing this acute on chronic stage III renal disease. We'll continue to monitor her improvement. 11/14/18: As stated above has been on lisinopril with creatinine 1.89 when last checked with evidence of poor control at that time. (7) Constipation Discussed With: Nurse, Patient Problem Text: I added Senokot-S at night to her regimen. Monitor. (8) Heart murmur Permanent Comment: 11/14/18: Left ventricular wall thickness upper limits of normal with hyperkinetic wall motion. Last Edited By: Alton Fitzpatrick MD on Nov 17, 2018 2:51 am Status: Chronic Response to Treatment: Stable Problem Text: The echo report findings do not seem life-threatening. Plan/VTE VTE Prophylaxis Ordered?: Yes (TEDs) VTE Exclusion Mechanical Proph: N/A:VTE Prophy Ordered VTE Exclusion Pharmacological: Hemorrhage Plan Activity: Encourage Ambulation Therapy: PT, OT Medications: Bowel Regimen Diagnostics: Repeat Labs in AM Anticipated Discharge: Home VS, I&O, 24H, [facility] Vital Signs/I&O Vital Signs Date Time Temp Pulse Resp B/P (MAP) Pulse Ox O2 Delivery O2 Flow Rate FiO2 11/16/18 15:16 210/90 (130) 11/16/18 08:00 97.5 58 18 94 11/11/18 22:00 Room Air I&O- Last 24 Hours up to 6 AM 11/16/18 05:59 Intake Total 120 ml Output Total 200 ml Balance -80 ml Laboratory Data 24H LABS Laboratory Tests 2 11/15/18 16:57: Bedside Glucose (Misc Panel) 200H 11/15/18 21:14: Bedside Glucose (Misc Panel) 222H 11/16/18 05:26: Nucleated Red Blood Cells % (auto) 0.0, Anion Gap 7L, Glomerular Filtration Rate 20.5L, Blood Urea Nitrogen 43H, Creatinine 2.58H, Sodium Level 144, Potassium Level 3.9, Chloride Level 109H, Carbon Dioxide Level 28, Calcium Level 7.8L 11/16/18 12:28: Bedside Glucose (Misc Panel) 172H CBC/BMP Laboratory Tests 11/16/18 05:26 Red Blood Count 3.95 L, Mean Corpuscular Volume 85.6, Mean Corpuscular Hemoglobin 29.1, Mean Corpuscular Hemoglobin Concent 34.0, Red Cell Distribution Width 14.2, Calcium Level 7.8 L Alton Fitzpatrick MD Nov 16, 2018 4:05 pm
[2018-11-16] MEDS: **hydrALAZINE** 50 MG TAB PO SCH ×2 (16:13→23:56)
--- NOTE | 2018-11-16 16:24 | REPVR ---
PROCEDURE INFORMATION: Exam: MR Angiography Neck Without Contrast Exam date and time: 11/16/2018 2:28 PM Clinical history: 57 years old, female; Dizziness and giddiness; Patient HX: PT states dizziness, nausea, vomiting, chills and sweats priors on pacs; Additional info: Stroke/cva ich TECHNIQUE: Imaging protocol: Magnetic resonance angiography of the neck without contrast. 3D rendering: MIP reconstructed images were created and reviewed. COMPARISON: MRA BRAIN W/O CONTRAST 11/16/2018 1:59 PM FINDINGS: Right vertebral artery: The vertebral arteries demonstrate normal flow. Left internal carotid artery: There is no evidence of significant stenosis right or left internal carotid artery. Other vasculature: There are 2 areas of bleed right cerebellum, an underlying vascular malformations or angiomatous lesions may be present. On the MRI there are 2 similar smaller areas within the joel. Other findings: On the previous CT are areas of high density blood within the right side of the cerebellum. Also concerning is low density probable edema throughout the joel and cerebellar peduncles and right cerebellum. To further evaluate for any possibility of metastasis or infection suggest CT or MRI scan with IV contrast. IMPRESSION: 1. No evidence of right or left internal carotid artery stenosis. 2. 2 areas of hematoma right cerebellum and within the joel with associated significant edema. An MRI with IV contrast should be performed to evaluate for any possibility of underlying metastasis or infection. Electronically signed by: Red Urias On 11/16/2018 16:24:25 PM
--- NOTE | 2018-11-16 16:43 | REPVR ---
PROCEDURE INFORMATION: Exam: MR Angiogram Head Without Contrast, Arteries Exam date and time: 11/16/2018 2:28 PM Clinical history: 57 years old, female; Dizziness and giddiness; Patient HX: PT states dizziness, nausea, vomiting, chills and sweats priors on pacs; Additional info: Stroke/cva ich TECHNIQUE: Imaging protocol: MR angiogram head without contrast. Exam focused on the arteries. 3D rendering: MIP reconstructed images were created and reviewed. COMPARISON: MRI-Brain without Contrast 11/14/2018 1:16 PM FINDINGS: Basilar artery: There is no evidence of a basilar artery aneurysm. Other vasculature: There is no evidence of aneurysm of the [place]. Brain: There are 2 areas of bleed within the right cerebellum and there may be underlying vascular malformation or angiomas. There is concern that there is edema in the joel, cerebellar peduncles and right cerebellum. To exclude any possibility of underlying infection or metastasis or vascular malformation recommend MRI with IV contrast. Brainstem: 2 areas of low signal intensity within the joel may also be associated with underlying angiomas. Low signal intensities probably from hemosiderin. Probable small areas of acute ischemic change right and left basal ganglia region. IMPRESSION: 1. No evidence of aneurysm. 2. Edema of the joel, cerebellar peduncles and right side of the cerebellum. To evaluate for underlying metastasis, infection, vascular malformation a MRI with IV contrast should be performed. 3. Small areas of acute ischemic change right left basal ganglia region. Electronically signed by: Red Urias On 11/16/2018 16:43:03 PM
--- NOTE | 2018-11-16 20:36 | CR ---
DATE OF CONSULTATION: 11/16/2018 REFERRING PHYSICIAN: Alton Fitzpatrick MD REASON FOR CONSULTATION: Abnormal MRI scan of brain. HISTORY OF PRESENT ILLNESS: Nilda Martin is a 57-year-old woman who was admitted at due to hypertensive emergency. The patient states that she has history of hypertension since 2005. She had mitral valve repair or replacement in 2005 and 2014. The patient states that she sometimes runs out of her medications that she cannot afford them. In the last one year, it has happened three times and she was without medications for 2 or 3 days. She again ran out of her medications two days before she presented to emergency department with frontal headache, nausea, vomiting and blurred vision. She was noted to have blood pressure 296/190. Her blood pressure has improved with medications. She continues to complain of lightheadedness and blurred vision. She denies any spinning sensation. She denies any headaches, neck or back pain. She denied any seizures, falls or loss of consciousness. She denies dysphagia, dysarthria, diplopia or urinary incontinence, numbness, weakness of arms and legs. Her MRI scan of brain on November 14, 2018 was reviewed and showed extensive small-vessel ischemic disease of brain in deep cerebral white matter, brain stem, right more than left cerebellum with two small acute ischemic strokes in the right putamen 7 mm and 3-4 mm in left thalamus/internal capsule. She also has right cerebellar and left deep cerebral white matter, old cerebral hemorrhage. No clear signs of cavernous hemangioma were seen. HOME MEDICATIONS: - aspirin 325 mg by mouth daily - Lipitor 80 mg by mouth daily - glipizide 10 mg by mouth twice a day - lisinopril 10 mg by mouth daily - metoprolol 25 mg by mouth twice a day ALLERGIES: None. PAST MEDICAL HISTORY: Diabetes, hypertension and the patient states that she had mitral valve replaced into 2005 and 2014. FAMILY HISTORY: Noncontributory. The patient is adopted. SOCIAL HISTORY: She denies smoking, alcohol or illicit drugs. She works at [employer] at [employer]. REVIEW OF SYSTEMS: All systems were reviewed and found to be noncontributory, except as mentioned in present illness. PHYSICAL EXAMINATION: Temperature 97.5, blood pressure 142/70, 94% saturation on room air, pulse 50, respiratory rate 18. Heart: Regular rate and rhythm. Lungs: Clear to auscultation. Abdomen: Soft, nontender, nondistended. No pedal edema. No musculoskeletal abnormalities. No rash or signs of meningeal irritation. The patient is awake, alert, oriented to place, person and time. Normal speech comprehension and repetition. Extraocular muscles are intact. No facial weakness and uvula is midline. 5/5 strength in all four extremities. Deep tendon flexes 1+ in arms and knees and absent at ankles. She has decreased cold pinprick, vibration, sensation in her feet. Gait is mildly unsteady. LABORATORY STUDIES: Hemoglobin was 11.5, creatinine reached maximum 3 and decreased to 2.58. GFR decreased to 17.3 and increased to 45.8. ASSESSMENT: 1. Extensive small-vessel ischemic disease of brain. 2. Small right putamen and left thalamus/internal capsule acute ischemic strokes. 3. Evidence of old right cerebellar and deep cerebral white matter cerebral hemorrhages. 4. Hypertensive emergency brought on by medical noncompliance due to financial reasons. 5. Diabetic nephropathy and she likely has diabetic retinopathy as well. PLAN: 1. Magnetic Resonance Angiography (MRA) brain and neck. 2. Aspirin 325 mg by mouth daily. 3. Lipid 80 mg by mouth daily. 4. Keep systolic blood pressure below 140 and diastolic blood pressure below 80. 5. She should see ophthalmology for possible hypertensive retinopathy. She already has hypertensive nephropathy. She should follow up with nephrology as well. 6. Emphasized compliance with treatment of her hypertension, diabetes and dyslipidemia. 7. Follow with our office in 2 - 4 weeks. Repeat MRI scan of brain can be considered in 6 months if concern for cavernoma. She should have echocardiogram during hospital admission.
[2018-11-16] MEDS: SENOKOT S TAB PO SCH (21:25)
[2018-11-16] MEDS: LEVEMIR (INSULIN DETEMIR) 1 UNITS/0.01ML SC SCH (21:26)
[2018-11-17] VITALS (11 sets, daily range): BP systolic 137–190; BP diastolic 70–90
[2018-11-17] MEDS: **hydrALAZINE** 50 MG TAB PO SCH (04:51)
[2018-11-17 05:51] LABS: HEMATOCRIT 32.1 % (36.0-47.0); HEMOGLOBIN 10.6 g/dl (12.0-15.5); MEAN CORPUSCULAR HEMOGLOBIN 28.4 pg (27.0-33.0); MEAN CORPUSCULAR VOLUME 86.1 fl (80.0-96.0); PLATELET COUNT, AUTOMATED 227 10^3/uL (150-450); RED BLOOD COUNT 3.73 10^6/uL (4.00-5.40); WHITE BLOOD COUNT 7.8 10^3/uL (4.0-10.0)
[2018-11-17 06:11] LABS: ALBUMIN 2.1 GM/DL (3.2-5.2); BILIRUBIN,TOTAL 0.4 MG/DL (0.2-1.0); CALCIUM LEVEL 7.4 MG/DL (8.5-10.1); CREATININE FOR GFR 2.43 MG/DL (0.55-1.30); GLOMERULAR FILTRATION RATE 21.9 (>51); MAGNESIUM LEVEL 2.1 MG/DL (1.8-2.4); TOTAL PROTEIN 4.7 GM/DL (6.4-8.2)
[2018-11-17] MEDS: HumaLOG INSULIN (NovoLOG) PER UNIT SC SCH ×4 (08:44→20:22)
[2018-11-17] MEDS: ASPIRIN 81 MG ENTERIC TAB PO SCH (08:44)
[2018-11-17] MEDS: ATORVASTATIN 20 MG TAB PO SCH (08:44)
[2018-11-17] MEDS: SPIRONOLACTONE 25 MG TAB PO SCH (08:44)
[2018-11-17] MEDS: amLODIPine 10 MG TAB PO SCH (08:44)
[2018-11-17] MEDS: CARVedilol 6.25 MG TAB PO SCH ×2 (08:45→20:21)
--- NOTE | 2018-11-17 08:48 | IPNPDOC ---
Subjective Date Seen The patient was seen on 11/17/18. Subjective Chief Complaint/HPI hypertensive urgency Constitutional: Denies: Chills, Fever, Night Sweats ENT: Denies: Head Aches, Ear Pain, Dysphagia Pulmonary: Denies: Dyspnea, Cough Cardiovascular: Denies: Chest Pain, Palpitations, Orthopnea, Paroxysmal Noc. Dyspnea, Lt Headedness Gastrointestinal: Denies: Nausea, Vomiting, Abdominal Pain, Diarrhea, Constipation Genitourinary: Denies: Dysuria, Frequency, Incontinence, Retention Psych: Reports: Mood Normal; Denies: Depression, Memory Issues Objective Physical Examination General Exam: Positive: Alert, Cooperative, No Acute Distress (she is laying in her bed talking with her daughter on the phone when I enter the room) Eye Exam: Positive: Conjunctiva & lids normal; Negative: Sclera icteric ENT Exam: Positive: Atraumatic, Mucous membr. moist/pink Neck Exam: Positive: Supple, Lymphadenopathy Chest Exam: Positive: Clear to auscultation, Normal air movement Heart Exam: Positive: Rate Normal, Regular Rhythm, Gallops ( hint of an S4 gallop, but it is not consistently noted), Murmurs (2-3 systolic murmur at base) Abdomen Exam: Positive: Normal bowel sounds, Soft; Negative: Tenderness Extremity Exam: Negative: Edema Skin Exam: Positive: Nl turgor and temperature Neuro Exam: Positive: Normal Speech, Normal Tone Psych Exam: Positive: Anxiety, Memory Intact, Oriented x 3; Negative: Mental status NL, Mood NL Assessment /Plan Problems (1) Cerebral edema Status: Acute Problem Text: No s/s of herniation 11/17/18 CT head P 11/16/18 MRI brain: severe edema right cerebellum, joel, fourth ventricle and the white matter of the right and left cerebral hemisphere. Prominent areas of bleed noted right cerebellum and 2 small areas of the joel. On the gradient there are additional very small round areas of blood product blooming artifact cerebral regions. (2) Hypertensive urgency Status: Acute Response to Treatment: Improving Problem Text: 11/17/18: Increase hydralazine 75 mg po q 6 hrs. 11/16/18: In the afternoon her hydralazine dose was further increased to 50mg Q6h to try to control her BP more. I spoke with Dr. Dudley about preferred options and this was the one he supports. 11/15/18: Hydralazine dose was increased by nephrology today. Her blood pressures are coming under better control with her typical systolic numbers being in the 130s or 140s today. Appreciate nephrology's assistance with management. 11/14/18:Pressures remain elevated. Hyrdalazine added to current regimen. We will continue to monitor 11/13/18: Increase Amlodipine to 10mg. Continue with beta dc. Renal u/s n egative for ROYAL change to carvedilol to replace metoprolol, add amlodipine, titrate both to effect. d/c lisinopril d/t acute renal failure. Will request renal u/s. (3) Cerebrovascular accident (CVA) of uncertain pathology Status: Acute Discussed With: Nurse, Patient Problem Specific Plan: Monitor Clinically Problem Text: Fortunately I don't see any specific deficit. I suspect that her sense of lightheadedness relates to these new lesions. Dr. Salas of neurology saw her today and ordered another MRI. I did communicate with the [facility] grinder carbon plant radiologist. He was more impressed with fairly widespread areas of edema that he felt were not adequately described on the previous exam. One question I have for neurology is whether we should entirely stop her aspirin or leave her on the reduced dose of 81 mg as was changed yesterday. I have also asked physical and occupational therapy to see her; perhaps they will find functional deficits. 11/14/18 TTE: : Normal sinus rhythm without intraventricular conduction disturbance. M-mode and two-dimensional echocardiography was performed with pulsed, continuous wave, color flow and tissue Doppler studies. Left ventricular wall thickness upper limits of normal with hyperkinetic wall motion. Left atrial size was upper limits of normal. Borderline right heart chamber enlargement with normal wall motion with Doppler evidence of at least moderately severe pulmonary hypertension. Normal IVC size with virtually absent respiratory collapse in keeping with an elevated central venous pressure. Aortic valve appears to be a bioprosthetic with appropriate function for this structure and only trace insufficiency. Thickened mitral valvular apparatus with adequate leaflet excursion and no posterior systolic buckling but at least moderate insufficiency. Normal appearing tricuspid valve with moderate insufficiency. No apparent intracardiac mass or pericardial effusion. DD: Gregory Juarez MD, FACC 11/14/18 0441 (4) Head ache Status: Acute Discussed With: Patient Problem Specific Plan: Monitor Clinically Problem Text: 11/15/18: In retrospect I think this symptom may be related to the multiple small hemorrhages. Probably the one(s) in the cerebellum or joel more specifically. 11/14/18: Day 2 of headache and "off balance/dizzy" feeling in her head. CT scan unremarkable. This may be secondary to her HTN. We will obtain MRI for further eval. also add promethazine 12.5mg IV prn nausea/vertigo. 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 We'll continue to monitor her improvement. 11/14/18: As stated above has been on lisinopril with creatinine 1.89 when last checked with evidence of poor control at that time. (8) Constipation Discussed With: Nurse, Patient Problem Text: I added Senokot-S at night to her regimen. Monitor. (9) Pulmonary hypertension Status: Chronic Response to Treatment: Stable Plan/VTE VTE Prophylaxis Ordered?: Yes (TEDs) VTE Exclusion Mechanical Proph: N/A:VTE Prophy Ordered VTE Exclusion Pharmacological: Hemorrhage Plan Activity: Encourage Ambulation Therapy: PT, OT Medications: Bowel Regimen Diagnostics: Repeat Labs in AM Anticipated Discharge: Home VS, I&O, 24H, [facility] Hospital Vital Signs/I&O Vital Signs Date Time Temp Pulse Resp B/P (MAP) Pulse Ox O2 Delivery O2 Flow Rate FiO2 11/17/18 07:57 97.4 61 18 187/80 (115) 97 11/11/18 22:00 Room Air I&O- Last 24 Hours up to 6 AM 11/17/18 05:59 Intake Total 720 ml Output Total 1650 ml Balance -930 ml Laboratory Data 24H LABS Laboratory Tests 2 11/16/18 12:28: Bedside Glucose (Misc Panel) 172H 11/16/18 16:52: Bedside Glucose (Misc Panel) 175H 11/16/18 21:30: Bedside Glucose (Misc Panel) 161H 11/17/18 05:14: Nucleated Red Blood Cells % (auto) 0.0, Anion Gap 6L, Glomerular Filtration Rate 21.9L, Blood Urea Nitrogen 39H, Creatinine 2.43H, Sodium Level 142, Potassium Level 4.0, Chloride Level 109H, Carbon Dioxide Level 27, Calcium Level 7.4L, Aspartate Amino Transf (AST/SGOT) 14, Alanine Aminotransferase (ALT/SGPT) 21, Alkaline Phosphatase 60, Total Bilirubin 0.4, Total Protein 4.7L, Albumin 2.1L, Magnesium Level 2.1, Albumin/Globulin Ratio 0.81L CBC/BMP Laboratory Tests 11/17/18 05:14 Red Blood Count 3.73 L, Mean Corpuscular Volume 86.1, Mean Corpuscular H emoglobin 28.4, Mean Corpuscular Hemoglobin Concent 33.0, Red Cell Distribution Width 14.4, Calcium Level 7.4 L, Aspartate Amino Transf (AST/SGOT) 14, Alanine Aminotransferase (ALT/SGPT) 21, Alkaline Phosphatase 60, Total Bilirubin 0.4, Total Protein 4.7 L, Albumin 2.1 L Alejandra High Nov 17, 2018 08:48 Kris Rodriguez M.D. Nov 17, 2018 17:09
[2018-11-17] MEDS: **hydrALAZINE HCL** 25 MG TAB PO SCH ×2 (12:13→17:03)
--- NOTE | 2018-11-17 17:03 | REP ---
CT brain without contrast: History: Cerebellar hemorrhage. Comparison head CT study is from September 10, 2018. Comparison MRI November 14, 2018. CT findings: The previously noted right lateral cerebellar hemorrhage is again seen unchanged in overall size. No hyperdense hematoma is appreciated in the joel or elsewhere in the cerebellum. No other evidence of intracranial hemorrhage is seen. Ventricular size is unchanged. There is periventricular white matter edema in the supratentorial brain which may reflect small vessel atherosclerotic disease or demyelinating changes. Vascular calcification is observed in the distal internal carotid arteries bilaterally. There is no evidence of acute infarction. Impression: Findings essentially unchanged from the November 11, 2018 study. Right cerebellar hemisphere hematoma. Unchanged. Electronically Signed by Aramis Tate MD 11/17/2018 05:19 P
[2018-11-17 19:24] LABS: APPEARANCE, URINE HAZY (CLEAR); BACTERIA, URINE AUTO NEGATIVE (NEGATIVE); BILIRUBIN, URINE AUTO NEGATIVE (NEGATIVE); BLOOD, URINE BLOOD NEGATIVE (NEGATIVE); COLOR, URINE YELLOW (YELLOW); GLUCOSE, URINE (UA) AUTO 3+ mg/dL (NEGATIVE); KETONE, URINE AUTO NEGATIVE (NEGATIVE); LEUKOCYTE ESTERASE, URINE AUTO NEGATIVE (NEGATIVE); NITRITE, URINE AUTO NEGATIVE (NEGATIVE); PROTEIN, URINE AUTO 3+ mg/dL (NEGATIVE); RBC, URINE AUTO 3 /HPF (0-3); SPECIFIC GRAVITY URINE AUTO 1.017 (1.002-1.035); SQUAMOUS EPITHELIAL CELL UR AU 2 /HPF (0-6); UROBILINOGEN, URINE AUTO 0.2 mg/dL (0.0-2.0); WBC, URINE AUTO 3 /HPF (0-3)
--- NOTE | 2018-11-17 19:48 | IPN ---
DATE: 11/16/2018 Ms. Martin is seen this morning on her bedside. She reports feeling dizzy and lightheaded when she got up. She was nauseated but denies any vomiting. She has no dyspnea or chest pain. Blood pressure has been high with occasional reading in 140s. PHYSICAL EXAMINATION: Temperature is 97.5 degrees Fahrenheit, heart rate 58 per minute and respiratory rate 18 per minute. Blood pressure this morning was 214/96 and then came down to 180/82. Most recently, one reading is 142/70 mmHg. Her head is atraumatic. Neck is supple and without JVD or thyroid enlargement. Heart sounds are regular and lungs sound clear to auscultation. Abdomen soft and nontender. Bowel sounds are normal. Extremities without any cyanosis or clubbing. Neurologically she is awake and at her baseline mentation. Today's labs show WBC count 7.8, hemoglobin 11.5 and hematocrit 33.8. Platelets 235. Sodium 144, potassium 3.9, CO2 28, BUN 43 and creatinine 2.58. Glucose 142 and calcium 7.8. PROBLEMS: 1. Acute kidney injury, possibly superimposed on chronic kidney disease. Slight improvement in kidney function is noted. She has been off TERESA inhibitor since admission. I feel that her acute kidney injury is likely related to acute glomerulonephritis in addition to hypertensive urgency. At this point we will continue to monitor closely as her kidney function is improving. Will keep her off TERESA inhibitor and angiotensin receptor dc. She is currently not on any nephrotoxic medication. 2. Hypertension. Blood pressure control remains suboptimal. She does have one blood pressure reading of 140s/70s. She is not suitable for angiotensin receptor dc or TERESA inhibitor. She is already on maximum dose of calcium channel dc and appropriate dose of beta dc. We will increase her hydralazine dose as needed up to 100 mg three times a day before adding another medication. Spironolactone 25 mg daily was added yesterday. She does not seem to have any significant volume overload at present. 3. Proteinuria. She did have significant proteinuria and hematuria on her urinalysis done a few days ago. 24-hour urine protein was just above 4000 mg. I feel that this may be acute glomerulonephritis and I have explained to the patient that she is likely to require a diagnostic kidney biopsy. Once her blood pressure is improved then we will schedule her for kidney biopsy. Most of the serology and immunology studies that have been sent are still pending. Dictation
[2018-11-17] MEDS: SENOKOT S TAB PO SCH (20:21)
[2018-11-17] MEDS: LEVEMIR (INSULIN DETEMIR) 1 UNITS/0.01ML SC SCH (20:21)
[2018-11-18] VITALS (12 sets, daily range): BP systolic 140–190; BP diastolic 62–86
[2018-11-18 00:07] LABS: DOPAMINE PLASMA <30 pg/mL (0-48); EPINEPHRINE PLASMA 73 pg/mL (0-62); METANEPHRINE PLASMA 59 pg/mL (0-62); NOREPINEPHRINE PLASMA 974 pg/mL (0-874); NORMETANEPHRINE PLASMA 304 pg/mL (0-145)
[2018-11-18] MEDS: **hydrALAZINE HCL** 25 MG TAB PO SCH ×5 (00:29→23:42)
[2018-11-18 06:11] LABS: HEMATOCRIT 31.4 % (36.0-47.0); HEMOGLOBIN 10.7 g/dl (12.0-15.5); MEAN CORPUSCULAR HEMOGLOBIN 28.5 pg (27.0-33.0); MEAN CORPUSCULAR HGB CONC 34.1 g/dl (32.0-36.5); MEAN CORPUSCULAR VOLUME 83.5 fl (80.0-96.0); PLATELET COUNT, AUTOMATED 249 10^3/uL (150-450); RED BLOOD COUNT 3.76 10^6/uL (4.00-5.40); WHITE BLOOD COUNT 10.8 10^3/uL (4.0-10.0)
--- NOTE | 2018-11-18 06:15 | IPN ---
DATE OF SERVICE: 11/17/2018 Ms. Martin is seen this morning on her bedside. Her blood pressure is slightly better today and medications have been adjusted. She had an MRA of her brain and carotids yesterday. She was found to have multiple small ischemic infarcts and neurology has started her on aspirin 325 mg daily. She denies any headache at this point. She denies any nausea, vomiting, dyspnea or chest pain. Yesterday, her hydralazine dose was increased to 50 mg every 6 hours and today it has been increased to 75 mg every 6 hours because of elevated blood pressure. She remains on amlodipine 10 mg daily and carvedilol 6.25 mg twice a day in addition to spironolactone 25 mg daily. Her volume status seems clinically well-compensated. On physical examination, temperature 97.4 degrees Fahrenheit, heart rate 60 per minute and respiratory rate 18 per minute. Blood pressure 180/74 mmHg and oxygen saturation 97% on room air. Head is atraumatic. Neck is supple and jugular venous distention (JVD) is minimally elevated. No oral thrush or ulcers noted. Heart sounds are regular and lungs sound clear to auscultation. Abdomen: Soft and nontender and bowel sounds are normal. Extremities: Without any cyanosis or clubbing. Skin has no rash or ulcers. Neurologically she is awake, alert and oriented times three. Today's labs show WBC count 7.8, hemoglobin 10.6 and hematocrit 32.1. Platelets 227. Sodium 142, potassium 4.0, CO2 27, BUN 39 and creatinine 2.43. Glucose is 175 and calcium 7.4. PROBLEMS: 1. Acute kidney injury superimposed on chronic kidney disease. Kidney function is gradually improving and she has no uremic symptoms. At this point, we will continue to monitor her kidney function on a daily basis. 2. Uncontrolled hypertension. Blood pressure is slightly better compared with a couple of days ago and her hydralazine dose has been increased to 75 mg every 6 hours. We will continue with current dose of calcium channel dc, beta dc and diuretic. 3. Proteinuria. The patient had about 4 grams of protein in 24-hour urine. Most likely, she has acute glomerulonephritis. Her serology and immunology studies are still pending. I am going to repeat her urinalysis and also set her up for a diagnostic kidney biopsy. I have discussed with the patient and explained to her and she is willing to proceed. 4. Anemia. At this point, her anemia is stable and does not need any intervention.
[2018-11-18 06:44] LABS: CALCIUM LEVEL 7.9 MG/DL (8.5-10.1); CREATININE FOR GFR 2.23 MG/DL (0.55-1.30); GLOMERULAR FILTRATION RATE 24.2 (>51); POTASSIUM SERUM 4.3 MEQ/L (3.5-5.1)
[2018-11-18] MEDS: HumaLOG INSULIN (NovoLOG) PER UNIT SC SCH ×4 (07:30→21:00)
[2018-11-18] MEDS ORDERED: diphenhydrAMINE INJ 50MG/ML VIAL (J1200) As Ordered ONE (08:43)
[2018-11-18] MEDS ORDERED: LIDOCAINE 1% MDV 20ML VIAL As Ordered ONE (08:43)
[2018-11-18] MEDS: ASPIRIN 81 MG ENTERIC TAB PO SCH (08:43)
[2018-11-18] MEDS ORDERED: fentaNYL 100 MCG/2 ML INJECTION (J3010) As Ordered ONE (08:43)
[2018-11-18] MEDS ORDERED: MIDAZOLAM INJ 2 MG/2 ML VIAL (J2250) As Ordered ONE (08:43)
[2018-11-18] MEDS: ATORVASTATIN 20 MG TAB PO SCH (08:44)
[2018-11-18] MEDS: CARVedilol 6.25 MG TAB PO SCH ×2 (08:44→20:29)
[2018-11-18] MEDS: SPIRONOLACTONE 25 MG TAB PO SCH (08:44)
[2018-11-18] MEDS: amLODIPine 10 MG TAB PO SCH (08:45)
--- NOTE | 2018-11-18 10:15 | IRMSE ---
[facility] IR Moderate Sedation Eval. Date and Time Date: Nov 18, 2018 Time: 10:15 ASA Classification ASA Classification: II-Mild systemic disease Mallampati Score: II NPO: Yes Obstructive Sleep Apnea: No Interval Plan: moderate sedation MONICA WALKER MD Nov 18, 2018 10:15
--- NOTE | 2018-11-18 11:07 | POST-OPPD ---
Postoperative Procedure Note Date Of Procedure: Nov 18, 2018 Time Of Procedure: 11:06 PREOPERATIVE DIAGNOSIS: renal disease POSTOPERATIVE DIAGNOSIS: renal disease FINDINGS: unremarkable left kidney PROCEDURE: left kidney Bx SURGEON: miguel a ANESTHESIA: moderate sedation SPECIMENS: cores x 3 ESTIMATED BLOOD LOSS: < 5 ml COMPLICATIONS: none POSTOPERATIVE CONDITION: stable MONICA WALKER MD Nov 18, 2018 11:07
[2018-11-18] MEDS ORDERED: PERCOCET 5MG/325MG TAB PO PRN (11:45)
[2018-11-18 13:20] LABS: ALBUMIN 2.79 GM/DL (3.29-5.55); ALBUMIN % 58.2 % (55.8-66.1); ALPHA-1-GLOBULIN % 7.1 % (2.9-4.9); ALPHA-1-GLOBULINS 0.34 GM/DL (0.17-0.41); ALPHA-2-GLOBULINS 0.67 GM/DL (0.42-0.99); ALPHA-2-GLOBULINS % 13.9 % (7.1-11.8); BETA-1-GLOBULINS % 6.7 % (4.7-7.2); BETA-2-GLOBULINS % 5.9 % (3.2-6.5); GAMMA GLOBULIN % 8.2 % (11.1-18.8)
[2018-11-18 13:21] LABS: BETA-1-GLOBULINS 0.32 GM/DL (0.28-0.60); BETA-2-GLOBULINS 0.28 GM/DL (0.19-0.55); GAMMA GLOBULINS 0.39 GM/DL (0.65-1.58)
--- NOTE | 2018-11-18 15:43 | REP ---
IR CT guided kidney biopsy. IR moderate sedation. Clinical information: Renal disease. Physician: Dr. Cormier. Procedure: The patient was advised of the benefits, risks and alternatives of the procedure and informed consent was obtained. The time-out was performed with verification of the patient's name, MRN, site of procedure and type of procedure to be performed. The patient was positioned in the prone position on the table. The site was prepped and draped in the usual sterile fashion. Moderate sedation was performed by the physician including the presence of an independent trained observer who assisted in monitoring the patient's level of consciousness and physiologic status. Following the administration Fentanyl and Versed, the physician spent 45 minutes of continuous face to face time with the patient. Preliminary CT of the kidney demonstrates no gross abnormality. The anticipated puncture site was anesthetized with lidocaine. Under intermittent CT guidance a 17 G coaxial needle was inserted into the lower pole of the left kidney. A 18 Gauge biopsy device was inserted through the coaxial needle under CT guidance and used to obtain core biopsies of the left Kidney. The specimen was labeled with the patient's name and medical record number and sent for further analysis. The coaxial needle and biopsy device were removed, pressure held and hemostasis achieved. A follow-up CT through the area demonstrates no significant hematoma. A sterile dressing was applied to the site. The patient tolerated the procedure well and was returned to the PRU in stable condition. EBL: < 5 ml. Complications: None. Conclusion: 1. Ultrasound left Kidney demonstrates no gross abnormality. 2. Successful CT guided core kidney biopsy. Patient to follow up with referring provider for biopsy results. Thank you for this referral. Electronically Signed by Radha Cormier MD 11/18/2018 03:42 P
--- NOTE | 2018-11-18 16:09 | IPN ---
DATE: 11/18/2018 Nilda is seen in progressive care unit (PCU), status post renal biopsy. Having no chest pain or shortness of breath. Feels better than yesterday. PHYSICAL EXAMINATION: 162/72. Vital signs stable. LUNGS: Clear. HEART: Regular rhythm. ABDOMEN: Soft, nontender. EXTREMITIES: Trace peripheral edema. LABORATORIES: Creatinine is down to 2.2. Hemoglobin is stable at 10.7. IMPRESSION: 1. Acute kidney injury, probably acute glomerulonephritis. Renal biopsy is pending. Nephrology is consulted. 2. Hypertension. Blood pressure is under better control. 3. Nephrotic range proteinuria. She is on 4 grams of protein. Workup is pending.
[2018-11-18] MEDS: SENOKOT S TAB PO SCH (20:28)
[2018-11-18] MEDS: ACETAMINOPHEN TAB 650MG DOSE (2X325MG) PO PRN (20:29)
[2018-11-18] MEDS: LEVEMIR (INSULIN DETEMIR) 1 UNITS/0.01ML SC SCH (23:39)
[2018-11-19] VITALS (7 sets, daily range): BP systolic 138–182; BP diastolic 62–82
[2018-11-19] MEDS: **hydrALAZINE HCL** 25 MG TAB PO SCH (05:52)
[2018-11-19 06:26] LABS: HEMATOCRIT 30.2 % (36.0-47.0); HEMOGLOBIN 10.1 g/dl (12.0-15.5); MEAN CORPUSCULAR HEMOGLOBIN 28.1 pg (27.0-33.0); MEAN CORPUSCULAR HGB CONC 33.4 g/dl (32.0-36.5); MEAN CORPUSCULAR VOLUME 84.1 fl (80.0-96.0); PLATELET COUNT, AUTOMATED 213 10^3/uL (150-450); RED BLOOD COUNT 3.59 10^6/uL (4.00-5.40); WHITE BLOOD COUNT 8.3 10^3/uL (4.0-10.0)
[2018-11-19 06:49] LABS: CALCIUM LEVEL 8.1 MG/DL (8.5-10.1); CREATININE FOR GFR 2.39 MG/DL (0.55-1.30); GLOMERULAR FILTRATION RATE 22.3 (>51); POTASSIUM SERUM 4.6 MEQ/L (3.5-5.1)
[2018-11-19] MEDS: HumaLOG INSULIN (NovoLOG) PER UNIT SC SCH ×4 (08:55→21:00)
[2018-11-19] MEDS: ASPIRIN 81 MG ENTERIC TAB PO SCH (08:56)
[2018-11-19] MEDS: SPIRONOLACTONE 25 MG TAB PO SCH (08:56)
[2018-11-19] MEDS: CARVedilol 6.25 MG TAB PO SCH ×2 (08:56→21:37)
[2018-11-19] MEDS: ATORVASTATIN 20 MG TAB PO SCH (08:56)
[2018-11-19] MEDS: amLODIPine 10 MG TAB PO SCH (08:56)
[2018-11-19] MEDS: ONDANSETRON 4MG/2ML VIAL (J2405) IV PRN (11:18)
--- NOTE | 2018-11-19 12:35 | IPNPDOC ---
Subjective Date Seen The patient was seen on 11/19/18. Subjective Chief Complaint/HPI Feels well Objective Physical Examination General Exam: Positive: Alert, Cooperative, No Acute Distress (she is laying in her bed talking with her daughter on the phone when I enter the room) Eye Exam: Positive: Conjunctiva & lids normal; Negative: Sclera icteric ENT Exam: Positive: Atraumatic, Mucous membr. moist/pink Neck Exam: Positive: Supple, Lymphadenopathy Chest Exam: Positive: Clear to auscultation, Normal air movement Heart Exam: Positive: Rate Normal, Regular Rhythm, Gallops ( hint of an S4 gallop, but it is not consistently noted), Murmurs (2-3 systolic murmur at base) Abdomen Exam: Positive: Normal bowel sounds, Soft; Negative: Tenderness Extremity Exam: Negative: Edema Skin Exam: Positive: Nl turgor and temperature Neuro Exam: Positive: Normal Speech, Normal Tone Psych Exam: Positive: Anxiety, Memory Intact, Oriented x 3; Negative: Mental status NL, Mood NL Assessment /Plan Problems (1) Hypertensive urgency Permanent Comment: Caused by Acute Glomeruolnephritis Last Edited By: DANIA Eubanks on Nov 19, 2018 12:31 Status: Acute Response to Treatment: Improving Problem Text: 11/19/18 - Nephrology adjusting BP meds Renal Biopsy results pending 11/17/18: Increase hydralazine 75 mg po q 6 hrs. 11/16/18: In the afternoon her hydralazine dose was further increased to 50mg Q6h to try to control her BP more. I spoke with Dr. Dudley about preferred options and this was the one he supports. 11/15/18: Hydralazine dose was increased by nephrology today. Her blood pressures are coming under better control with her typical systolic numbers being in the 130s or 140s today. Appreciate nephrology's assistance with management. 11/14/18:Pressures remain elevated. Hyrdalazine added to current regimen. We will continue to monitor 11/13/18: Increase Amlodipine to 10mg. Continue with beta dc. Renal u/s negative for ROYAL change to carvedilol to replace metoprolol, add amlodipine, titrate both to effect. d/c lisinopril d/t acute renal failure. Will request renal u/s. (2) Cerebral edema Status: Acute Problem Text: No s/s of herniation 11/17/18 CT head P 11/16/18 MRI brain: severe edema right cerebellum, joel, fourth ventricle and the white matter of the right and left cerebral hemisphere. Prominent areas of bleed noted right cerebellum and 2 small areas of the joel. On the gradient there are additional very small round areas of blood product blooming artifact cerebral regions. (3) Cerebrovascular accident (CVA) of uncertain pathology Permanent Comment: Present on Admission Last Edited By: DANIA Eubanks on Nov 19, 2018 12:32 Status: Acute Discussed With: Nurse, Patient Problem Specific Plan: Monitor Clinically Problem Text: Fortunately I don't see any specific deficit. I suspect that her sense of lightheadedness relates to these new lesions. Dr. Salas of neurology saw her today and ordered another MRI. I did communicate with the [facility] bacon skin lifter radiologist. He was more impressed with fairly widespread areas of edema that he felt were not adequately described on the previous exam. One question I have for neurology is whether we should entirely stop her aspirin or leave her on the reduced dose of 81 mg as was changed yesterday. I have also asked physical and occupational therapy to see her; perhaps they will find functional deficits. 11/14/18 TTE: : Normal sinus rhythm without intraventricular conduction disturbance. M-mode and two-dimensional echocardiography was performed with pulsed, continuous wave, color flow and tissue Doppler studies. Left ventricular wall thickness upper limits of normal with hyperkinetic wall motion. Left atrial size was upper limits of normal. Borderline right heart chamber enlargement with normal wall motion with Doppler evidence of at least moderately severe pulmonary hypertension. Normal IVC size with virtually absent respiratory collapse in keeping with an elevated central venous pressure. Aortic valve appears to be a bioprosthetic with appropriate function for this structure and only trace insufficiency. Thickened mitral valvular apparatus with adequate leaflet excursion and no posterior systolic buckling but at least moderate insufficiency. Normal appearing tricuspid valve with moderate insufficiency. No apparent intracardiac mass or pericardial effusion. DD: Gregory Juarez MD, [facility] 11/14/18 7953 (4) Head ache Status: Acute Discussed With: Patient Problem Specific Plan: Monitor Clinically Problem Text: 11/15/18: In retrospect I think this symptom may be related to the multiple small hemorrhages. Probably the one(s) in the cerebellum or joel more specifically. 11/14/18: Day 2 of headache and "off balance/dizzy" feeling in her head. CT scan unremarkable. This may be secondary to her HTN. We will obtain MRI for further eval. also add promethazine 12.5mg IV prn nausea/vertigo. 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 We'll continue to monitor her improvement. 11/14/18: As stated above has been on lisinopril with creatinine 1.89 when last checked with evidence of poor control at that time. (8) Constipation Discussed With: Nurse, Patient Problem Text: I added Senokot-S at night to her regimen. Monitor. (9) Pulmonary hypertension Status: Chronic Response to Treatment: Stable Plan/VTE VTE Prophylaxis Ordered?: Yes (TEDs) VTE Exclusion Mechanical Proph: N/A:VTE Prophy Ordered VTE Exclusion Pharmacological: Hemorrhage Plan Activity: Encourage Ambulation Therapy: PT, OT Medications: Bowel Regimen Diagnostics: Repeat Labs in AM Anticipated Discharge: Home VS[facility] Vital Signs/I&O Vital Signs Date Time Temp Pulse Resp B/P (MAP) Pulse Ox O2 Delivery O2 Flow Rate FiO2 11/19/18 08:56 61 152/62 11/19/18 07:30 97.3 18 98 11/18/18 10:35 3 I&O- Last 24 Hours up to 6 AM 11/19/18 06:00 Intake Total 720 ml Output Total 1400 ml Balance -680 ml Laboratory Data 24H LABS Laboratory Tests 2 11/18/18 16:44: Bedside Glucose (Misc Panel) 186H 11/18/18 21:24: Bedside Glucose (Misc Panel) 174H 11/19/18 06:07: Nucleated Red Blood Cells % (auto) 0.0, Anion Gap 7L, Glomerular Filtration Rate 22.3L, Blood Urea Nitrogen 36H, Creatinine 2.39H, Sodium Level 141, Potassium Level 4.6, Chloride Level 109H, Carbon Dioxide Level 25, Calcium Level 8.1L 11/19/18 11:31: Bedside Glucose (Misc Panel) 154H CBC/BMP Laboratory Tests 11/19/18 06:07 Red Blood Count 3.59 L, Mean Corpuscular Volume 84.1, Mean Corpuscular Hemoglobin 28.1, Mean Corpuscular Hemoglobin Concent 33.4, Red Cell Distribution Width 14.4, Calcium Level 8.1 L EARNEST DAVIDSON PA-C Nov 19, 2018 12:35
[2018-11-19 14:18] LABS: ANCA-ATYPICAL <1:20 titer (Neg:<1:20); ANTI DS-DNA AB <1:10 titer (.); ANTINUCLEAR ANTIBODIES DIRECT Negative (Negative); CYTOPLASMIC NEUTROP AB ANCA-C <1:20 titer (Neg:<1:20); FREE KAPPA LIGHT CHAINS SERUM 29.7 mg/L (3.3-19.4); FREE LAMBDA LIGHT CHAINS SERUM 19.1 mg/L (5.7-26.3); HEPATITIS B CORE ANTIBODY IGG Negative (Negative); KAPPA/LAMBDA RATIO SERUM 1.55 (0.26-1.65); PERINUCLEAR AB ANCA-P <1:20 titer (Neg:<1:20)
[2018-11-19] MEDS: **hydrALAZINE** 50 MG TAB PO SCH ×2 (15:49→21:37)
[2018-11-19] MEDS ORDERED: SLF 3 ML SYR IV PRN (17:00)
--- NOTE | 2018-11-19 18:03 | IPN ---
DATE: 11/19/2018 Ms. Martin is seen this morning on her bedside. She is sitting in the chair, eating her breakfast. The patient's daughter is present in the room. The patient had a kidney biopsy done yesterday and denies any pain at the kidney biopsy site or hematuria. She denies any headache, nausea or vomiting. Her blood pressure has been much better controlled now with most recent adjustment in her blood pressure medications two days ago. Her appetite is not great but denies any vomiting or diarrhea. PHYSICAL EXAMINATION: Temperature 97.3 degrees Fahrenheit, heart rate 60 per minute and respiratory rate 18 per minute. Blood pressure 152/62 mmHg and oxygen saturation 98% on room air. Head is atraumatic. Neck is supple and without jugular venous distention (JVD) or thyroid enlargement sitting upright. Lungs sound clear to auscultation bilaterally. Heart sounds are regular and without a pericardial friction rub. Abdomen is soft, nontender and bowel sounds are normal. Left back kidney biopsy site dressing is intact without any hematoma or bleeding. Extremities have no cyanosis or clubbing. Neurologically, she is at her baseline mentation. LABORATORY DATA: Today's laboratories show WBC count 8.3, hemoglobin 10.1 and hematocrit 30.2. Platelets 213. Sodium 141, potassium 4.6, CO2 25, BUN 36 and creatinine 2.39. Glucose 177 and calcium 8.1. PROBLEMS: 1. Acute renal failure superimposed on chronic kidney disease. No significant change in kidney function noticed over the last couple of days. She had a left kidney biopsy yesterday and we will wait for results. She has been off angiotensin-converting enzyme (TERESA) inhibitor and not on any nephrotoxic medication at present. We have not started any treatment as yet for possible glomerulonephritis pending her kidney biopsy results. 2. Hypertension. Blood pressure control has improved significantly and I am going to change her hydralazine dose to 100 mg three times a day in order to make it easy for her to take it as an outpatient. She will continue with Carvedilol 6.25 mg twice a day, amlodipine 10 mg daily and spironolactone 25 mg daily. 3. Proteinuria. The patient had 4 grams of protein in her 24-hour urine and a kidney biopsy was done yesterday. We will wait for results and then consider treatment depending upon her biopsy results. 4. Anemia. Her anemia is mild and stable and does not need any intervention at present.
[2018-11-19] MEDS: LEVEMIR (INSULIN DETEMIR) 1 UNITS/0.01ML SC SCH (21:36)
[2018-11-19] MEDS: SENOKOT S TAB PO SCH (21:37)
[2018-11-19] MEDS: SLF 3 ML SYR IV SCH (21:38)
[2018-11-20 04:00] VITALS: BP 130/72
[2018-11-20] MEDS: SLF 3 ML SYR IV SCH ×3 (06:14→20:38)
[2018-11-20 06:24] LABS: HEMATOCRIT 30.3 % (36.0-47.0); HEMOGLOBIN 9.9 g/dl (12.0-15.5); MEAN CORPUSCULAR HEMOGLOBIN 28.8 pg (27.0-33.0); MEAN CORPUSCULAR HGB CONC 32.7 g/dl (32.0-36.5); MEAN CORPUSCULAR VOLUME 88.1 fl (80.0-96.0); PLATELET COUNT, AUTOMATED 181 10^3/uL (150-450); RED BLOOD COUNT 3.44 10^6/uL (4.00-5.40); WHITE BLOOD COUNT 8.2 10^3/uL (4.0-10.0)
[2018-11-20 06:45] LABS: CALCIUM LEVEL 8.1 MG/DL (8.5-10.1); CREATININE FOR GFR 2.47 MG/DL (0.55-1.30); GLOMERULAR FILTRATION RATE 21.5 (>51); POTASSIUM SERUM 4.5 MEQ/L (3.5-5.1)
[2018-11-20 08:00] VITALS: BP 160/94
[2018-11-20] MEDS: **hydrALAZINE** 50 MG TAB PO SCH ×3 (08:36→20:37)
[2018-11-20] MEDS: HumaLOG INSULIN (NovoLOG) PER UNIT SC SCH ×4 (08:36→20:28)
[2018-11-20] MEDS: ATORVASTATIN 20 MG TAB PO SCH (08:36)
[2018-11-20] MEDS: ASPIRIN 81 MG ENTERIC TAB PO SCH (08:36)
[2018-11-20] MEDS: amLODIPine 10 MG TAB PO SCH (08:37)
[2018-11-20] MEDS: CARVedilol 6.25 MG TAB PO SCH ×2 (08:37→20:38)
[2018-11-20] MEDS: SPIRONOLACTONE 25 MG TAB PO SCH (08:37)
--- NOTE | 2018-11-20 09:15 | IPNPDOC ---
Subjective Date Seen The patient was seen on 11/20/18. Subjective Chief Complaint/HPI No complaintsother than feeling very tired Constitutional: Denies: Chills, Fever Pulmonary: Denies: Dyspnea, Cough Cardiovascular: Denies: Chest Pain, Palpitations Gastrointestinal: Denies: Nausea, Vomiting, Abdominal Pain, Diarrhea, Constipation Objective Physical Examination General Exam: Positive: Alert, No Acute Distress Neck Exam: Positive: Supple, Lymphadenopathy Chest Exam: Positive: Clear to auscultation, Normal air movement; Negative: Rales, Rhonchi, Wheezing Heart Exam: Positive: Rate Normal, Regular Rhythm, Gallops ( hint of an S4 gallop, but it is not consistently noted), Murmurs (2-3 systolic murmur at base) Abdomen Exam: Positive: Normal bowel sounds, Soft; Negative: Tenderness Extremity Exam: Negative: Edema Skin Exam: Positive: Nl turgor and temperature Neuro Exam: Positive: Normal Speech, Normal Tone Psych Exam: Positive: Anxiety, Memory Intact, Oriented x 3; Negative: Mental status NL, Mood NL Assessment /Plan Problems (1) Acute renal failure Status: Acute Response to Treatment: Worse Problem Text: baseline cr ~2.0 11/20 - Renal Biopsy pending Nephrology managing - renal fx slightly worses last 2 days 11/17 improved to 39/2.4, 4.0 (2) Hypertensive urgency Permanent Comment: Caused by Acute Glomeruolnephritis Last Edited By: DANIA Eubanks on Nov 19, 2018 12:31 Status: Acute Response to Treatment: Improving Problem Text: 11/20 - BP improving with Hydralazine - per nephrology 11/19/18 - Nephrology adjusting BP meds Renal Biopsy results pending 11/17/18: Increase hydralazine 75 mg po q 6 hrs. 11/16/18: In the afternoon her hydralazine dose was further increased to 50mg Q6h to try to control her BP more. I spoke with Dr. Dudley about preferred options and this was the one he supports. 11/15/18: Hydralazine dose was increased by nephrology today. Her blood pressures are coming under better control with her typical systolic numbers being in the 130s or 140s today. Appreciate nephrology's assistance with management. 11/14/18:Pressures remain elevated. Hyrdalazine added to current regimen. We will continue to monitor 11/13/18: Increase Amlodipine to 10mg. Continue with beta dc. Renal u/s negative for ROYAL change to carvedilol to replace metoprolol, add amlodipine, titrate both to effect. d/c lisinopril d/t acute renal failure. Will request renal u/s. (3) Cerebral edema Status: Acute Problem Text: No s/s of herniation 11/17 CT head: Findings essentially unchanged from the November 11, 2018 study. Right cerebellar hemisphere hematoma. Unchanged. 11/17/18 CT head P 11/16/18 MRI brain: severe edema right cerebellum, joel, fourth ventricle and the white matter of the right and left cerebral hemisphere. Prominent areas of bleed noted right cerebellum and 2 small areas of the joel. On the gradient there are additional very small round areas of blood product blooming artifact cerebral regions. (4) Cerebrovascular accident (CVA) of uncertain pathology Permanent Comment: Present on Admission Last Edited By: DANIA Eubanks on Nov 19, 2018 12:32 Status: Acute Discussed With: Nurse, Patient Problem Specific Plan: Monitor Clinically Problem Text: Fortunately I don't see any specific deficit. I suspect that her sense of lightheadedness relates to these new lesions. Dr. Salas of neurology saw her today and ordered another MRI. I did communicate with the [facility] automotive service professional radiologist. He was more impressed with fairly widespread areas of edema that he felt were not adequately described on the previous exam. One question I have for neurology is whether we should entirely stop her aspirin or leave her on the reduced dose of 81 mg as was changed yesterday. I have also asked physical and occupational therapy to see her; perhaps they will find functional deficits. 11/14/18 TTE: : Normal sinus rhythm without intraventricular conduction disturbance. M-mode and two-dimensional echocardiography was performed with pulsed, continuous wave, color flow and tissue Doppler studies. Left ventricular wall thickness upper limits of normal with hyperkinetic wall motion. Left atrial size was upper limits of normal. Borderline right heart chamber enlargement with normal wall motion with Doppler evidence of at least moderately severe pulmonary hypertension. Normal IVC size with virtually absent respiratory collapse in keeping with an elevated central venous pressure. Aortic valve appears to be a bioprosthetic with appropriate function for this structure and only trace insufficiency. Thickened mitral valvular apparatus with adequate leaflet excursion and no posterior systolic buckling but at least moderate insufficiency. Normal appearing tricuspid valve with moderate insufficiency. No apparent intracardiac mass or pericardial effusion. DD: Gregory Juarez MD, [facility] 11/14/18 4799 (5) Head ache Status: Acute Discussed With: Patient Problem Specific Plan: Monitor Clinically Problem Text: 11/15/18: In retrospect I think this symptom may be related to the multiple small hemorrhages. Probably the one(s) in the cerebellum or joel more specifically. 11/14/18: Day 2 of headache and "off balance/dizzy" feeling in her head. CT scan unremarkable. This may be secondary to her HTN. We will obtain MRI for further eval. also add promethazine 12.5mg IV prn nausea/vertigo. 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 We'll continue to monitor her improvement. 11/14/18: As stated above has been on lisinopril with creatinine 1.89 when last checked with evidence of poor control at that time. (8) Constipation Discussed With: Nurse, Patient Problem Text: I added Senokot-S at night to her regimen. Monitor. (9) Pulmonary hypertension Status: Chronic Response to Treatment: Stable Plan/VTE VTE Prophylaxis Ordered?: Yes (TEDs No anticoag secondary to Brain bleed) VTE Exclusion Mechanical Proph: N/A:VTE Prophy Ordered VTE Exclusion Pharmacological: Hemorrhage Plan Activity: Encourage Ambulation Therapy: PT, OT Medications: Bowel Regimen Diagnostics: Repeat Labs in AM Anticipated Discharge: Home VS, I&O, 24H, [facility] Vital Signs/I&O Vital Signs Date Time Temp Pulse Resp B/P (MAP) Pulse Ox O2 Delivery O2 Flow Rate FiO2 11/20/18 08:36 130/72 11/20/18 08:00 97.6 62 18 95 11/18/18 10:35 3 I&O- Last 24 Hours up to 6 AM 11/20/18 06:00 Intake Total 1260 ml Output Total 300 ml Balance 960 ml Laboratory Data 24H LABS Laboratory Tests 2 11/19/18 11:31: Bedside Glucose (Misc Panel) 154H 11/19/18 16:53: Bedside Glucose (Misc Panel) 170H 11/19/18 20:37: Bedside Glucose (Misc Panel) 156H 11/20/18 05:55: Nucleated Red Blood Cells % (auto) 0.0, Anion Gap 3L, Glomerular Filtration Rate 21.5L, Blood Urea Nitrogen 34H, Creatinine 2.47H, Sodium Level 143, Potassium Level 4.5, Chloride Level 111H, Carbon Dioxide Level 29, Calcium Level 8.1L CBC/BMP Laboratory Tests 11/20/18 05:55 Red Blood Count 3.44 L, Mean Corpuscular Volume 88.1, Mean Corpuscular Hemoglobin 28.8, Mean Corpuscular Hemoglobin Concent 32.7, Red Cell Distribution Width 14.3, Calcium Level 8.1 L EARNEST DAVIDSON PA-C Nov 20, 2018 09:15
[2018-11-20 12:00] VITALS: BP 160/70
[2018-11-20 12:43] LABS: URINE VOLUME RANDOM ML
[2018-11-20 12:44] LABS: UPEP INTERPRETATION NO M-SPIKE NOTED
--- NOTE | 2018-11-20 13:55 | IPN ---
DATE OF VISIT: 11/20/2018 Ms. Martin is seen this morning on her bedside. She is sitting in the bed and reports that her nausea is better today and she did eat breakfast. She denies any vomiting, diarrhea, abdominal pain, fever or chills. She has no dyspnea, chest pain or leg edema. Patient had a kidney biopsy done 2 days ago and results are still pending. Her blood pressure has been much better controlled now. On physical exam, temperature 97.6 degrees Fahrenheit, heart rate 62 per minute and respiratory rate 18 per minute. Blood pressure 130/72 mmHg and oxygen saturation 95% on room air. Head is atraumatic. Neck is supple and without jugular venous distention (JVD) or thyroid enlargement. Heart sounds are regular and lungs clear to auscultation. Abdomen soft and nontender, and bowel sounds are normal. Extremities without any cyanosis or clubbing. Neurologically, she is awake and able to answer questions. However, she does very well oriented. On review of labs, WBC count is 8.2, hemoglobin 9.9 and hematocrit 30.3. Sodium 143, potassium 4.5, CO2 29, BUN 34 and creatinine 2.47. Glucose 127 and calcium 8.1. All her immunology that was pending has come back and is all negative. Her HORTENCIA, ANCA and complements are negative or normal range. Glomerular basement membrane is still pending. BUN is 34 and creatinine 2.47 today. PROBLEMS: 1. Acute renal failure superimposed on chronic kidney disease. No significant change in kidney function over last 5 days. Her creatinine has varied between 2.2-2.5. Blood pressure is well-controlled and she is not on angiotensin-converting enzyme (TERESA) inhibitor or angiotensin receptor dc at present. Her kidney biopsy results are still pending. 2. Hypertension. Blood pressure improved with current antihypertensive medications and we will continue with the same. No changes are being made today. 3. Anemia. Her anemia is also mostly stable. We will hold off on any intervention at this point. 4. Proteinuria. She did have a 24-hour urine protein about 4000 mg on 11/13/2018. A kidney biopsy was done to evaluate for possible glomerulonephritis. Results are pending and we are holding off on treatment pending biopsy results.
[2018-11-20 16:00] VITALS: BP 158/78
[2018-11-20 20:00] VITALS: BP 132/78
[2018-11-20] MEDS: SENOKOT S TAB PO SCH (20:38)
[2018-11-20] MEDS: LEVEMIR (INSULIN DETEMIR) 1 UNITS/0.01ML SC SCH (20:38)
[2018-11-20] MEDS: ONDANSETRON 4MG/2ML VIAL (J2405) IV PRN (20:56)
[2018-11-20 23:59] VITALS: BP 162/84
[2018-11-21 01:27] VITALS: BP 160/78
[2018-11-21 04:00] VITALS: BP 164/86
[2018-11-21] MEDS: SLF 3 ML SYR IV SCH ×2 (05:06→13:30)
[2018-11-21 06:06] LABS: CALCIUM LEVEL 8.2 MG/DL (8.5-10.1); CREATININE FOR GFR 2.54 MG/DL (0.55-1.30); GLOMERULAR FILTRATION RATE 20.8 (>51); POTASSIUM SERUM 4.6 MEQ/L (3.5-5.1)
[2018-11-21] MEDS: HumaLOG INSULIN (NovoLOG) PER UNIT SC SCH ×3 (07:30→16:59)
[2018-11-21 08:02] VITALS: BP 194/92
[2018-11-21] MEDS: ASPIRIN 81 MG ENTERIC TAB PO SCH (08:15)
[2018-11-21] MEDS: SPIRONOLACTONE 25 MG TAB PO SCH (08:15)
[2018-11-21] MEDS: CARVedilol 6.25 MG TAB PO SCH (08:15)
[2018-11-21] MEDS: amLODIPine 10 MG TAB PO SCH (08:15)
[2018-11-21] MEDS: **hydrALAZINE** 50 MG TAB PO SCH ×2 (08:15→16:55)
[2018-11-21] MEDS: ATORVASTATIN 20 MG TAB PO SCH (08:15)
[2018-11-21] MEDS ORDERED: CARV6.25 PO (10:39)
[2018-11-21] MEDS ORDERED: SENN-52 PO (10:39)
[2018-11-21] MEDS ORDERED: HYDR50TA PO (10:39)
[2018-11-21] MEDS ORDERED: ALDA25TA2 PO (10:39)
[2018-11-21] MEDS ORDERED: ASPI81TAEC PO (10:39)
[2018-11-21] MEDS ORDERED: INSUDET SC (10:39)
[2018-11-21] MEDS ORDERED: BASA100I SC (10:54)
[2018-11-21 12:00] VITALS: BP 160/80
[2018-11-21 16:00] VITALS: BP 170/84
[2018-11-21 16:55] VITALS: BP 170/84
[2018-11-21] MEDS ORDERED: FUROSEMIDE 20 MG TAB PO ONE (18:15)
--- NOTE | 2018-11-21 20:37 | IPN ---
DATE: 11/21/2018 Mrs. Martin is seen this morning on her bedside. She is feeling about the same and denies any new complaints. Her blood pressure has been reasonably well controlled; however, this morning's reading is somewhat high in 160s. She denies any headache, dyspnea, chest pain, nausea, or vomiting. PHYSICAL EXAMINATION: Temperature 99.8 degrees Fahrenheit, heart rate 68 per minute, respiratory rate 18 per minute, blood pressure of 160/80 mm of mercury now, and earlier it was 194/92 mm of mercury. Oxygen saturation is 95% on room air. Head is atraumatic. Neck is supple, and jugular venous distention (JVD) is slightly more prominent today. There is no oral thrush or ulcers. Heart sounds are regular and lungs sound clear to auscultation. Abdomen soft and nontender, and bowel sounds are normal. Extremities without any cyanosis or clubbing. Neurologically, she is at her baseline mentation without a focal deficit. Today's labs show sodium 145, potassium 4.6, CO2 of 28, BUN 36, creatinine 2.54, glucose 93, and calcium 8.2. Hemoglobin is 9.9 and hematocrit 30.3. PROBLEMS: 1. Acute renal failure superimposed on chronic kidney disease. Acute kidney failure was most likely related to hypertensive urgency. She does have proteinuria; however, her kidney biopsy is negative for any acute glomerulonephritis. All her serology has also come back negative. At this point, kidney function is relatively unchanged for last few days, and this is probably her new baseline now. 2. Chronic kidney disease and proteinuria. The patient had a kidney biopsy done a few days ago, which is consistent with diabetic nephropathy, according to preliminary telephone report. A full report is still pending. 3. Hypertension. Blood pressure is reasonably well controlled for a few days; however, today I see somewhat elevated reading. She probably has some fluid retention due to high-dose hydralazine, and I am going to add low-dose furosemide along with spironolactone that she will continue. We will give her a 20 mg dose today and see how she does. Will also start 20 mg furosemide daily and monitor her blood pressure unless she gets discharged. 4. Anemia. Her anemia is stable and does not need any urgent intervention. It is most likely to improve over next few weeks. She will be monitored and followed in the office. I will not give her any erythropoietin at this point due to risk of worsening hypertension. DISPOSITION: From a renal standpoint, the patient can be discharged to home if her blood pressure remains stable. She will be followed up in our office next week. If she does not get discharged, then we will continue to follow her along with you.
--- NOTE | 2018-11-21 23:10 | DSES ---
DATE OF ADMISSION: 11/11/2018 DATE OF DISCHARGE: 11/21/2018 BRIEF HISTORY AND PHYSICAL: The patient is a 57-year-old patient of Dr. Cabrales with a history of diabetes and high blood pressure who ran out of her antihypertensive medications, lisinopril and metoprolol, two days ago, presented to the emergency room with a frontal headache, nausea, vomiting and bilateral blurry vision. Blood pressure was 296/190 and her creatinine had bumped up to 1.89. Past medical history is significant for poorly controlled diabetes with a hemoglobin A1c of 8.5, hypertension, hyperlipidemia. Pertinent labs on admission: White count 10.2, hemoglobin 12.1, platelets 243,000. Sodium 141, potassium 3.8, BUN 33, creatinine 2.1, glucose 208. CT of the head showed confluent white matter changes in the subcortical, centrum semiovale and periventricular white matter consistent with small vessel white matter angiopathic gliosis, typical for this age group. Chest x-ray showed chronic change. Renal ultrasound showed negative renal ultrasound. HOSPITAL COURSE: The patient was admitted for hypertensive urgency and acute kidney injury, initially given labetalol and lisinopril. However, her lisinopril was held due to the acute renal failure. Metoprolol was switched to carvedilol and amlodipine was added. Nephrology also was consulted, gave her some Lasix for fluid overload from her IV fluids, which were stopped. Workup included kappa lambda light chains. She did have a kappa light chain elevation but a UPEP did not show any M-spikes. The SPEP showed hypogammaglobulinemia suggesting serum and urine immunotyping, which has not been ordered yet and can be obtained as an outpatient. However, the patient did undergo a renal biopsy and although I do not have the results in front of me, Dr. Dudley tells me that it was consistent with medical renal disease from her diabetes as opposed to glomerulonephritis. Her renal function stabilized, creatinine is 2.54 at the time of discharge. Blood pressure improved, has been somewhat variable, however, and she is to be discharged home on hydralazine 100 mg three times a day with Norvasc, carvedilol and spironolactone. Angiotensin-converting enzyme (TERESA) inhibitors and ARBS are to be avoided due to her chronic kidney disease. She will followup with nephrology as an outpatient. Diabetes mellitus type 2, poorly controlled. She was on glipizide at home. Her A1c had been 8.5. As an outpatient, she will need insulin. She has been getting insulin here. We have taught her how to use the insulin, and she will be sent home on Basaglar 10 units daily per her insurance coverage and dose of that will be adjusted gradually. I will be seeing her in the office on Saturday. CVA. Neurology saw the patient in consultation and MRI was ordered on November 14, 2018, showing susceptibility in the lateral right cerebellum where hyperdensity is seen on the CT consistent with recent hemorrhage. Also, multiple foci susceptibility in the bilateral cerebellar hemispheres, joel, left lateral putamen and left posterior parietal subcortical white matter with a possible focus above the right lateral ventricles. These could reflect multiple cavernoma, although the usual complexity seen with these lesions is not observed. Chronic hypertensive encephalopathy can produce these findings, particularly in view of the extensive deep cerebellar white matter changes. There is also an acute lacunar infarct. He recommended aspirin 325 mg daily, Lipitor 80 mg daily and keeping blood pressure below 140/80. She should have an ophthalmologic evaluation for hypertensive retinopathy and followup with neurology in 2-4 weeks and consider a followup of her MRI, of the concern of the cavernoma. Other workup included an echocardiogram. It showed left ventricular wall thickness in the upper limits of normal with hyperkinetic wall motion. Left atrium 3.6 cm. Moderate to severe pulmonary hypertension. Elevated central venous pressure. Aortic valve appears to be bioprosthetic with appropriate function. Thickened mitral valve apparatus with adequate leaflet excursion. No posterior systolic buckling but moderate insufficiency. No intracardiac mass or pericardial effusion. Carotid MRI showed two areas of hematoma in the right cerebellum and within the joel with associated significant edema. No evidence of right or left internal carotid artery stenosis. There was an addendum to the MRI of the brain discussed with Dr. Fitzpatrick, thought to be multiple petechial hemorrhages and small acute ischemic areas related to the patient's hypertension and hypertensive encephalopathy. Her aspirin dose was decreased to 81 mg. She did not have any significant focal deficits. Her lightheadedness and balance has improved, and she is stable for discharge. Nephrotic range proteinuria. Workup as above is still pending, and she may need additional workup,immunotyping. Skin lesion. She has an approximately 1 cm oblong oval-shaped lesion in the center of her upper back that is flat and very darkly hyperpigmented around the edges with some irregularity, no ulceration. This should to be evaluated as an outpatient with dermatology. DISPOSITION: She is stable for discharge home as long as she has been trained to give herself the insulin and nurse feels comfortable with her ability to do so as an outpatient. Patient and family services (PFS) has confirmed that her medications were all covered at the pharmacy for her and are waiting. Diet is 2 gram sodium, consistent carbohydrate, activity as tolerated. Medications: Aspirin 81 mg daily, carvedilol 6.25 mg twice a day, hydralazine 100 mg three times a day, Basaglar 10 units daily, Senna one tablet at bedtime, spironolactone 20 mg daily, atorvastatin 80 mg daily, fingerstick blood sugars twice a day. Followup with myself on Saturday. Followup with Dr. Dudley per his office. She will need a referral to neurology for further followup of the possible cavernoma seen on her MRI. She will need a referral to dermatology for the lesion on her back. DISCHARGE DIAGNOSES: 1. Hypertensive urgency. 2. Acute renal failure superimposed on chronic kidney disease. 3. Proteinuria. 4. Diabetes mellitus type 2 with nephropathy, poorly controlled. 5. Anemia of chronic disease. 6. Abnormal MRI with questionable cavernoma. 7. CVA. 8. Skin lesion.
[2018-11-22] MEDS ORDERED: FUROSEMIDE 20 MG TAB PO SCH (09:00)
== END 2018-11-21 18:15 | disposition home health service (06) | DRG 45 ==
LOC: M ED 17:51 → M ED INP 21:20 → M PCU 23:06
PROVIDERS: ADMIT Internal Medicine; ATTEND Family Medicine
PROC: 0TB13ZX Excision of Left Kidney, Percutaneous Approach, Diagnostic (ICD-10-PCS; principal; 2018-11-18 09:30)
DX: I63.59 Cerebral infarction due to unspecified occlusion or stenosis of other cerebral artery (principal); I61.9 Nontraumatic intracerebral hemorrhage, unspecified; G93.6 Cerebral edema; N17.9 Acute kidney failure, unspecified; N18.3 Chronic kidney disease, stage 3 (moderate); E11.21 Type 2 diabetes mellitus with diabetic nephropathy; E11.22 Type 2 diabetes mellitus with diabetic chronic kidney disease; I27.20 Pulmonary hypertension, unspecified; I67.4 Hypertensive encephalopathy; R80.9 Proteinuria, unspecified; E11.319 Type 2 diabetes mellitus with unspecified diabetic retinopathy without macular edema; I16.0 Hypertensive urgency; R01.1 Cardiac murmur, unspecified; E78.5 Hyperlipidemia, unspecified; Z79.82 Long term (current) use of aspirin; Z79.84 Long term (current) use of oral hypoglycemic drugs; Z79.899 Other long term (current) drug therapy; Z95.2 Presence of prosthetic heart valve; Z91.14 Patient's other noncompliance with medication regimen; I12.9 Hypertensive chronic kidney disease with stage 1 through stage 4 chronic kidney disease, or unspecified chronic kidney disease; K59.00 Constipation, unspecified; T43.4X6A Underdosing of butyrophenone and thiothixene neuroleptics, initial encounter; Z91.120 Patient's intentional underdosing of medication regimen due to financial hardship; R31.9 Hematuria, unspecified

== ENCOUNTER → 2018-11-28 | Outpatient (REF) | payer OTHER ==
[~2018-11-28] MED LIST: ALDA25TA2 PO; AMLO10TA5 PO; AMLO5TAB6 PO; ASPI1TAB22 PO; ASPI81TA26 PO; ASPI81TAEC PO; ATOR80TA59 PO; BASA100I SC; CARV6.25 PO; DOCU100C16 PO; FERR32TA PO; GLIP10TA6 PO; HYDR100T PO; HYDR50TA PO; INSUDET SC; LISI10TA4 PO; METO1TAB87 PO; MIRA3350 PO; OXYC1TAB23 PO; SENN-23 PO; SENN-52 PO; SPIR-10 PO; TORS10TA3 PO
[2018-11-28 18:16] LABS: FOLATE 6.7 NG/ML
== END ==
LOC: M LAB REF 16:57
PROVIDERS: ATTEND Internal Medicine Nephrology
DX: N18.9 Chronic kidney disease, unspecified (principal); D63.1 Anemia in chronic kidney disease

== ENCOUNTER 2018-12-11 12:22 | Inpatient (IN) | payer OTHER ==
[~2018-12-11] VITALS: Ht 149.9 cm; Wt 53.9 kg
[~2018-12-11 12:22] MED LIST changes: -AMLO10TA5 PO; -AMLO5TAB6 PO; -ASPI81TA26 PO; -DOCU100C16 PO; -FERR32TA PO; -HYDR100T PO; -MIRA3350 PO; -OXYC1TAB23 PO; -SENN-23 PO; -SPIR-10 PO; -TORS10TA3 PO
[2018-12-11] MEDS ORDERED: IPRATROPIUM 0.5MG/ALBUTEROL 2.5MG INH SOL UD 3ML (DUONEB)(J7620) NEB ONE (13:00)
--- NOTE | 2018-12-11 13:37 | REP ---
Two-view chest: 12/11/2018. Indication: Dyspnea. Comparison: 11/11/2018. Findings: The perihilar vascular markings are more prominent. Air space opacities are noted within the lower lobes bilaterally. Left-sided small pleural effusion is present. There is no pneumothorax. The patient is status post median sternotomy and valve replacement. Impression: Findings consistent with pulmonary edema/CHF as well as bibasilar pneumonia and small left pleural effusion. Electronically Signed by Alexander Ocasio DO 12/11/2018 01:28 P
[2018-12-11 13:48] LABS: BASO % 0.6 % (0.0-1.0); EOS # 0.1 10^3/uL (0.0-0.5); EOS % 1.2 % (0.0-3.0); HEMATOCRIT 27.4 % (36.0-47.0); HEMOGLOBIN 8.9 g/dl (12.0-15.5); LYMPH # 0.8 10^3/uL (1.5-5.0); LYMPH % 11.5 % (24.0-44.0); MEAN CORPUSCULAR HEMOGLOBIN 29.2 pg (27.0-33.0); MEAN CORPUSCULAR HGB CONC 32.5 g/dl (32.0-36.5); MEAN CORPUSCULAR VOLUME 89.8 fl (80.0-96.0); MONO # 0.4 10^3/uL (0.0-0.8); MONO % 5.4 % (0.0-5.0); NEUTROPHILS # 5.3 10^3/uL (1.5-8.5); NEUTROPHILS % 80.8 % (36.0-66.0); PLATELET COUNT, AUTOMATED 184 10^3/uL (150-450); RED BLOOD COUNT 3.05 10^6/uL (4.00-5.40); WHITE BLOOD COUNT 6.5 10^3/uL (4.0-10.0)
[2018-12-11 14:18] LABS: ALBUMIN 3.1 GM/DL (3.2-5.2); ALT/SGPT 46 U/L (12-78); BILIRUBIN,DIRECT 0.1 MG/DL (0.0-0.2); BILIRUBIN,TOTAL 0.5 MG/DL (0.2-1.0); BLOOD UREA NITROGEN 65 MG/DL (7-18); CALCIUM LEVEL 8.5 MG/DL (8.5-10.1); CARBON DIOXIDE LEVEL 21 MEQ/L (21-32); CHLORIDE LEVEL 120 MEQ/L (98-107); CK-MB VALUE MASS 4.4 NG/ML (<3.6); CPK CREATINE PHOSPHOKINASE 179 U/L (26-192); CREATININE FOR GFR 2.58 MG/DL (0.55-1.30); GLOMERULAR FILTRATION RATE 20.4 (>51); GLUCOSE, FASTING 71 MG/DL (70-100); MB/CK RELATIVE INDEX 2.46 (< OR =4); NT-PRO BNP 4256 PG/ML (<125); POTASSIUM SERUM 4.5 MEQ/L (3.5-5.1); SODIUM LEVEL 148 MEQ/L (136-145); THYROXINE (T4) 14.6 UG/DL (4.5-12.0); TOTAL PROTEIN 5.8 GM/DL (6.4-8.2); TROPONIN I < 0.02 NG/ML (< 0.10)
--- NOTE | 2018-12-11 15:44 | ECGEPIP ---
[facility] - ED Test Date: 2018-12-11 Pat Name: YANELIS MORA Department: Room: - Gender: Female [employer]: : 1960 Requested By: Melony Montez Order Number: [id number] Reading MD: Lucía Rodriguez Measurements Intervals [place] Rate: 52 P: 4 OK: 136 QRS: 80 QRSD: 89 T: 70 QT: 497 QTc: 464 Interpretive Statements SINUS BRADYCARDIA PROLONGED QT INTERVAL LVH NSTTW abnormalities DECREASED RATE 11/11/18 Electronically Signed on 12-11-2018 15:44:27 EDT by Lucía Rodriguez
[2018-12-11] MEDS ORDERED: IPRATROPIUM 0.5MG/ALBUTEROL 2.5MG INH SOL UD 3ML (DUONEB)(J7620) NEB PRN (16:15)
[2018-12-11] MEDS ORDERED: VANCOMYCIN HCL 1,000 MG, VIAL MATE ADAPTER 1 EACH in D5W 250 ML IV SCH (16:15)
[2018-12-11] MEDS ORDERED: PIPERACILLIN/TAZOBACTAM SOD 3.375 GM in D5W MINI-BAG PLUS 50 ML IV SCH (16:15)
[2018-12-11] MEDS ORDERED: HYDR100T PO (16:18)
[2018-12-11] MEDS ORDERED: SPIR-10 PO (16:18)
[2018-12-11] MEDS ORDERED: BASA100I SC (16:18)
[2018-12-11] MEDS ORDERED: MIRA3350 PO (16:18)
[2018-12-11] MEDS ORDERED: AMLO10TA5 PO (16:18)
[2018-12-11] MEDS ORDERED: CARV6.25 PO (16:18)
[2018-12-11] MEDS ORDERED: SENN-23 PO (16:18)
[2018-12-11] MEDS ORDERED: ASPI81TA26 PO (16:18)
[2018-12-11] MEDS ORDERED: ATOR80TA59 PO (16:18)
[2018-12-11] MEDS ORDERED: FERR32TA PO (16:18)
--- NOTE | 2018-12-11 16:37 | REP ---
CT chest without contrast: History: Short of breath, pneumonia. Question CHF. Comparison is made with today's chest x-ray. CT findings: The patient is status post aortic valve replacement via median sternotomy. There are bilateral pleural effusions small in size, left a little larger than right. There is atelectasis in the left lower lobe associated with the left effusion. There is some atelectatic changes in the lingula as well. Air bronchograms are seen in the atelectasis in the lingula. No pulmonary mass lesion is seen. There is moderate four-chamber cardiomegaly. No adrenal lesion is seen. Some vascular calcification is noted. No bony destructive lesion is seen. There is however a somewhat hyperdense irregularly shaped lesion in the anterosuperior chest wall on the right side measuring 1.9 x 1.5 x 2.3 cm in diameter. This appears to be associated with anterior second costal cartilage on the right. The right anterior second rib is either hypoplastic or previously amputated. There is some outward bowing of the lung in this region suggesting that this represents post thoracotomy change. This could be correlated with clinical history. Impression: CHF pattern with cardiomegaly and bilateral effusions, left greater than right. There is compressive atelectasis left lower lobe and lingular segment left upper lobe. The patient is status post aortic valve replacement. There is some deformity of the right anterior chest wall, which is probably postoperative. The anterior end of the right 2nd rib appears amputated and there is somewhat nodular hypertrophy of the right anterior costal cartilage, 2.3 cm in greatest diameter. This should be correlated with surgical history and prior CT imaging if this has been performed elsewhere. Electronically Signed by Aramis Tate MD 12/11/2018 06:30 P
[2018-12-11] MEDS ORDERED: MIRALAX *UNIT DOSE* 17GM PACKET PO PRN (16:45)
--- NOTE | 2018-12-11 17:44 | PHACANCOPD ---
PHARMACY VANCOMYCIN DOSING Pt Demographics Demographics Patient Age:58 , Weight:62.800 , Gender: female Adjusted Body Weight Date: 12/11/18, Adjusted Body Weight: [54.2] Kg Events Past 24 Hours Events Past 24 Hours: YES: Pending Diagnostics; NO: Dialysis, Diuretic Therapy, Change in CrCl, Fever, Elevation in WBC, Pending Procedures, Other Vancomycin Vancomycin indication: HCAP Vancomycin Target Ranges: 10-20 mcg/ml Vancomycin Load Y/N: Yes Load Dose Date Time Vancomycin Load Dose: 1,250MG Date: 12/11/2018 Time: 1900 Vancomycin Dose Date: 12/11/18. Current Vancomycin Dose: [1G Q24H] Intermittent Dosing?: No Labs Labs Vital Signs Label Value Date Time Patient Temperature 97.8 degrees F 12/11/18 1652 Patient Temperature 98.0 degrees F 12/11/18 1730 Bedside Pulse Oximetry 96 % 12/11/18 1637 Bedside Pulse Oximetry 97 % 12/11/18 1652 Item Value Date Time Oxygen Delivery Method Room Air 12/11/18 1622 White Blood Count 6.5 10^3/uL 12/11/18 1333 Creatinine 2.58 MG/DL H 12/11/18 1333 Creatinine Clearance Date:12/11/18. Creatinine Clearance: [17.9]. Assessment and Plan Maintaining Current Dose?: Yes Reason for dose change: No Dose Change Pharmacist Note Pharmacist Note Date: 12/11/18. Pharmacist note: This is the first time the patient is being treated at our facility with Vancomycin. Patient was admitted with a complaint of trouble breathing for 2-3 days, a productive cough with clear sputum and states that her visiting nurse "heard crackling" in her lungs. Patient denies fever and has been afebrile up to the point of this entry, WBC are WNL, SrCr= 2.58, CrCl= 17.9. MRSA PCR and procalcitonin still pending at this time. Vancomycin load dose= 1,250mg and the current scheduled maintenance dose is 1g Q24H. There is a random vancomycin level scheduled for 12/12/18 that will be pulled off of the AM lab draw. We will continue to monitor the patient and dose adjust as necessary. AMMY HENNESSY, PHARMACY Dec 11, 2018 17:44
[2018-12-11 17:46] VITALS: BP 177/77
[2018-12-11] MEDS ORDERED: GLUCOSE 4 GM CHEW TABLET PO PRN (18:45)
[2018-12-11] MEDS ORDERED: GLUCAGON FOR INJ 1 MG VIAL (J1610) SC PRN (18:45)
[2018-12-11] MEDS ORDERED: DEXTROSE 50% 50 ML SYRINGE IV PRN (18:45)
[2018-12-11] MEDS ORDERED: PIPERACILLIN/TAZOBACTAM SOD 2.25 GM in D5W MINI-BAG PLUS 50 ML IV SCH (19:00)
[2018-12-11] MEDS ORDERED: VANCOMYCIN HCL 750 MG, VIAL MATE ADAPTER 1 EACH in D5W 250 ML IV ONE (19:00)
[2018-12-11 19:10] LABS: C REACTIVE PROTEIN QUANTITATIV 0.46 MG/DL (0.00-0.30); PERCENT SATURATION 12.6 % (13.2-45.0)
--- NOTE | 2018-12-11 19:21 | CR.PDOC ---
General Date of Consultation: Dec 11, 2018 Attending Physician: BRANDYN ALMANZA MD Consultation REASON FOR CONSULTATION/CHIEF COMPLAINT: acute exacerbation of CHF and CKD IV HISTORY OF PRESENT ILLNESS: Nilda Martin is a 58 YO F with history of CKD IV sec to diabetic nephropathy, DM2, HTN who presents with 3 days of shortness of breath. She states that she first started noticing the shortness of breath when she was walking to the library from her house and noticed she couldn't catch her breath. Then, when she got home, the shortness of breath was not relieved with rest and gradually got worse over the next few days. She was also unable to lay flat and was sleeping sitting up in a chair. Today, her home health nurse was visiting her and noted that her oxygen saturation was 90%. She called her PCP and was told to come to the ED. She has reportedly taken all of her medication as prescribed and only ran out of her Simvastatin. She denies any recent fevers, chills, n/v/d or sick contacts. ALLERGIES: Please see below. HOME MEDICATIONS: Please see below. PAST MEDICAL HISTORY: Diabetes mellitus type 2 with nephropahty. Hyperlipidemia. s/p Bioprosthetic Aortic Valve Replacement (Porcine, then Bovine). Essential hypertension - admitted with hypertensive urgency 10/2018. CKD stage 4. PAST SURGICAL HISTORY: tonsillectomy tubal ligation cardiac cath teeth extraction upper and lower aortic valve replacement -- porcine 2005 aortic valve replacement -- bovine 2014 colonoscopy 2005,2014 Renal Biopsy FAMILY HISTORY: Son(s): , autism spectrum Daughter(s): alive closed adoption. SOCIAL HISTORY: nonsmoker Denies alcohol REVIEW OF SYSTEMS: CONSTITUTIONAL: Feels weak and tired; HEENT: denies vision changes, no sinus problems, denies any trouble swallowing CARDIOVASCULAR: no palpitations RESPIRATORY: Reports increasing shortness of breath x 3 days GENITOURINARY: No dysuria MUSCULOSKELETAL: Denies any joint/muscle pain GASTROINTESTINAL: Denies any abdominal pain, nausea or vomiting. No diarrhea reported SKIN: No new rashes or lesions NEUROLOGICAL: No loss of sensation PSYCHIATRIC: Reports normal mood/affect ENDOCRINE: No hot/cold intolerance HEMATOLOGIC/LYMPHATIC: No easy bruising, no lumps/bumps ALLERGIC/IMMUNOLOGIC: No sinus symptoms All other ROS is negative PHYSICAL EXAMINATION: VITAL SIGNS: Please see below. GENERAL APPEARANCE: Laying in bed, appears stated age, no acute distress HEENT: EOMI, PERRLA, neck is supple with no thyromegaly or lymphadenopathy RESPIRATORY: Crackles throughout both lung zendejas up to the middle lobes bilaterally CARDIOVASCULAR: JVD is elevated to 12-14cm at the sternal angle, RRR, 2/6 PATRCIIA in RUSB ABDOMEN: Soft, nontender to palpation, no masses/organomegaly EXTREMITIES: no clubbing, cyanosis or edema noted NEUROLOGICAL: No obvious focal deficits PSYCHIATRIC: normal mood/affect Skin: No rashes or ulcers. LN: No significant cervical or inguinal lymphadenopathy LABORATORY DATA: Please see below. 11/14/18 Echo:LVwall thickness upper limits normal with hyperkinetic wall motion EF 75%, LA 3.6 cm, Bioprosthetic aortic valve with normal function, moderate mitral insuf, mod TR ASSESSMENT/PLAN: Nilda Martin is a 58 YO F with history of CKD IV, DM2, HTN who presents with shortness of breath x 3 days found to be fluid overloaded in the setting of possible medication noncompliance 1. Acute respiratory distress sec to Pulm Edema: -CXR and Chest CT demonstrate bilateral pleural effusions L > R -BNP elevated at 4256. Patient does have moderate mitral insufficiency but EF 75% -Patient will be started on IV lasix 60mg Q8H -Was started on empiric antibiotics for suspected pneumonia 2. CKD IV: -Biopsy proven diabetic nephropathy. Cr is stable at 2.5. Appears to be her baseline -Patient appears to be fluid overloaded on exam. -Hold all nephrotoxic medications 3. Hypernatremia: Na found to be 145 on admission -Likely due to medication side effect vs. volume disturbance. Will continue to monitor 3. DM2: patient was somewhat hypoglycemic on admission -Continue home Levemir and SSI 4. HTN with Hypertensive Heart disease and CKD: likely to improve with diuresis. She was just admitted in 10/2018 with hypertensive emergency -Continue home Norvasc, Coreg, Hydralazine 5. Anemia of Chronic kidney disease: -s/p iron infusions. Continue home oral Ferrous Gluconate Dispo: Pending improvement in fluid status Vital Signs/I&O Vital Signs Date Time Temp Pulse Resp B/P (MAP) Pulse Ox O2 Delivery O2 Flow Rate FiO2 12/11/18 17:30 98.0 55 18 147/87 (107) 97 Room Air Laboratory Data Labs 24H Laboratory Tests 2 12/11/18 13:33: Immature Granulocyte % (Auto) 0.5, Neutrophils (%) (Auto) 80.8H, Lymphocytes (%) (Auto) 11.5L, Monocytes (%) (Auto) 5.4H, Eosinophils (%) (Auto) 1.2, Basophils (%) (Auto) 0.6, Neutrophils # (Auto) 5.3, Lymphocytes # (Auto) 0.8L, Monocytes # (Auto) 0.4, Eosinophils # (Auto) 0.1, Basophils # (Auto) 0.0, Nucleated Red Blood Cells % (auto) 0.0, Anion Gap 7L, Glomerular Filtration Rate 20.4L, Calcium Level 8.5, Total Bilirubin 0.5, Direct Bilirubin 0.1, Aspartate Amino Transf (AST/SGOT) 35, Alanine Aminotransferase (ALT/SGPT) 46, Alkaline Phosphatase 113, Total Creatine Kinase 179, Creatine Kinase MB 4.4H, Creatine Kinase MB Relative Index 2.46, Troponin I < 0.02, MI-Qgh-R-Type Natriuretic Peptide 4256H, Total Protein 5.8L, Albumin 3.1L, Albumin/Globulin Ratio 1.15, Thyroid Stimulating Hormone (TSH) 3.560, Thyroxine (T4) 14.6H 12/11/18 18:10: Bedside Glucose (Misc Panel) 66L 12/11/18 18:28: 12/11/18 18:29: CBC/BMP Laboratory Tests 12/11/18 13:33 Microbiology Microbiology 12/11/18 Blood Culture, Received Pending Allergies Coded Allergies: No Known Allergies (Unverified , 11/11/18) Home Medications Scheduled Amlodipine Besylate (Amlodipine Besylate) 10 Mg Tablet, 10 MG PO DAILY, (Reported) Aspirin (Aspirin EC) 81 Mg Tablet.dr, 81 MG PO DAILY, (Reported) Atorvastatin Calcium (Atorvastatin Calcium) 80 Mg Tablet, 80 MG PO QHS, (Reported) Carvedilol (Carvedilol) 6.25 Mg Tablet, 6.25 MG PO BID, (Reported) Ferrous Gluconate (Ferrous Gluconate) 324 Mg Tablet, 324 MG PO DAILY, (Reported) Insulin Glargine,Hum.rec.anlog (Basaglar Kwikpen U-100) 100 Unit/1 Ml Insuln.pen, 20 UNIT SC QHS, (Reported) Sennosides/Docusate Sodium (Senna-S Tablet) 1 Each Tablet, 1 TAB PO QHS, (Reported) Spironolactone (Spironolactone) 25 Mg Tablet, 25 MG PO DAILY, (Reported) hydrALAZINE HCL (Hydralazine HCl) 100 Mg Tablet, 100 MG PO TID, (Reported) Scheduled PRN Polyethylene Glycol 3350 (Miralax) 119 Gm Powder, 17 GM PO DAILY PRN for CONSTIPATION, (Reported) GME ATTESTATION GME ATTESTATION My faculty preceptor for this patient encounter was physically present during the encounter and was fully available. All aspects of the patient interview, examination, medical decision making process, and medical care plan development were reviewed and approved by the faculty preceptor. The faculty preceptor is aware and concurs with the plan as stated in the body of this note and will attest to such by his/her cosignature. ATTENDING NOTE Pt was seen and examined with the resident at bedside in the evening. Assessment: Shortness of sec to Pulm Edema Decompensated HFpEF Bioprosthetic Aortic valve CKD4 sec to biopsy proven diabetic nephropathy Hypertensive Urgency DM Type2 Anemia in CKD and Iron def Plan: Lasix 60 mg IV Q 8hr Cont Coreg,amlodipine,Hydralazine Not a candidate for TERESA/ARB CKD4 stable, no urgent need of HD. Check iron levels for anemia and give ELADIO if needed. Further recommendation to follow in AM after initial response to diuretics. CHANEL RICCI MD Dec 11, 2018 19:20 BRANDYN ALMANZA MD Dec 11, 2018 20:06
[2018-12-11] MEDS: FUROSEMIDE 100 MG/10 ML VIAL (J1940) IV SCH (19:33)
[2018-12-11] MEDS: IPRATROPIUM 0.5MG/ALBUTEROL 2.5MG INH SOL UD 3ML (DUONEB)(J7620) NEB SCH ×2 (19:46→23:56)
[2018-12-11 20:00] VITALS: BP 142/78
[2018-12-11] MEDS ORDERED: FUROSEMIDE 100 MG/10 ML VIAL (J1940) IV ONE (20:00)
[2018-12-11] MEDS ORDERED: VANCOMYCIN HCL 500 MG in D5W MINI-BAG PLUS 100 ML IV ONE (20:00)
[2018-12-11] MEDS: CARVedilol 6.25 MG TAB PO SCH (20:29)
[2018-12-11] MEDS: SENOKOT S TAB PO SCH (20:29)
[2018-12-11] MEDS: ATORVASTATIN 20 MG TAB PO SCH (20:30)
[2018-12-11] MEDS: HumaLOG INSULIN (NovoLOG) PER UNIT SC SCH (20:36)
[2018-12-11] MEDS: **hydrALAZINE** 50 MG TAB PO SCH (20:36)
[2018-12-11] MEDS ORDERED: LEVEMIR (INSULIN DETEMIR) 1 UNITS/0.01ML SC SCH (21:00)
[2018-12-11] MEDS ORDERED: SLF 3 ML SYR IV PRN (21:15)
--- NOTE | 2018-12-11 21:51 | HPE ---
DATE OF ADMISSION: 12/11/2018 PRIMARY CARE PHYSICIAN: Viktoriya Valentin CHIEF COMPLAINT: Shortness of breath for the past 2-3 days. HISTORY OF PRESENT ILLNESS: A 58-year-old female presented to the emergency room with 2-3 day history of worsening shortness of breath, initially noted with exertion and then eventually at rest with difficulty ambulating, increased lower extremity edema, and 2-3 pillow orthopnea. Unable to lie flat on the bed. Patient has not noticed any weight gain but says that she has developed a white, loose cough. No fever. Had a little bit of chills yesterday. No headache, diarrhea, chest pain. Pressure or rightness. No changes in appetite, sleep habits. Denies bright red blood per rectum or melena. She has been increasingly weak and fatigued and has noted yellow urine. No recent sick contacts. Aside from recent admission in October for hypertensive urgency, patient has seen her primary care physician without any new complaints. In the emergency room (ER) she was found to have anemia with hemoglobin of 8.9, hematocrit of 27. Denies bright red blood per rectum, melena, black tarry stools, hematemesis, coffee-ground emesis, or history of peptic ulcer disease, gastritis or esophagitis. Chest CT showed congestive heart failure (CHF) with bilateral effusions, left greater than right, with a compressive atelectasis in the left lower lobe. History of aortic valve replacement without any pulmonary mass. Cardiac marker was negative with troponin less than 0.02. EKG: Sinus bradycardia, ventricular rate of 53, left ventricular hypertrophy (LVH), nonspecific ST-T-wave changes, and prolonged QT interval. Hospitalist was called to admit to CHF in the setting of chronic kidney disease, stage IV. PAST MEDICAL HISTORY: 1. Chronic kidney disease, stage IV, with proteinuria, status post kidney biopsy October 2018, followed by [facility] admin, Dr. Dougherty. 2. Hypertension. 3. Type 2 diabetes. 4. Hyperlipidemia. PAST SURGICAL HISTORY: 1. Bioprosthetic aortic valve replacement, initially porcine valve 2005, bovine valve in 2014. 2. History of section in the past. ALLERGIES: No known drug allergies. HOME MEDICATIONS: - aspirin 81 mg daily - atorvastatin 80 mg at bedtime - Coreg 6.25 twice a day - hydralazine 100 mg three times a day - Levemir insulin 20 units at bedtime - Norvasc 10 daily - ferrous gluconate 324 daily - MiraLax one packet daily - Senokot-S one tablet at bedtime - spironolactone 25 mg daily FAMILY HISTORY: Patient is adopted. SOCIAL HISTORY: Lives with her daughter. Has 13 steps inside the home from first to second floor. Works at the [employer] at [employer]. Denies cigarette use. Alcohol rarely with wine. No recreational drug use. REVIEW OF SYSTEMS: Per history of present illness (HPI), 12-point system otherwise negative. PHYSICAL EXAMINATION: VITAL SIGNS: Temperature 98, pulse 55, respiratory rate 18, blood pressure 147/87, 97% on room air. GENERAL: Patient is awake, alert, oriented times three, answering questions appropriately. Patient has no conversational dyspnea. No cyanosis or pallor. Anicteric sclerae. No jaundice. Positive jugular venous distention. No cervical lymphadenopathy. No thyromegaly. Dry mucous membranes. LUNGS: Diminished. Bibasilar rales. HEART: S1, S2, sinus rhythm. Edema 1+ pitting bilaterally. No abdominal bruits. No carotid bruits. ABDOMEN: Soft, nontender, nondistended. Positive bowel sounds. No rebound, guarding. No hemostasis. EXTREMITIES: Pitting edema 1+. EKG: Prolonged QT interval, sinus rhythm, ventricular rate [address]-T wave changes. LABORATORY DATA: White count 6.5, hemoglobin 8.9, hematocrit 27, platelet count 184. Sodium 148, potassium 4.5, chloride 120, bicarbonate 21, BUN 65, creatinine 2.58, glucose 71. Total bilirubin 0.5, direct bilirubin 0.1, AST 35, ALT 46, alkaline phosphatase 113, total CK 179, MB fraction 4.4, relative index 2.46, troponin less than 0.02, BNP 4256, total protein 5.8, albumin 3.1. TSH 3.56, t$ of 14.6. Blood culture pending. Chest CT: CHF pattern with cardiomegaly, bilateral effusions, left greater than right, compressive atelectasis, left lower lobe and lingular segment, left upper lobe. Aortic valve replacement. Deformity around anterior chest wall, probably postoperative. Anterior end of the right 2nd rib is amputated. Nodular hypertrophy, right anterior costal ridge, 2.3 cm in greatest diameter. ASSESSMENT AND PLAN: This is a 58-year-old female with chronic kidney disease, stage IV, iron deficiency anemia secondary to renal failure, hypertensive heart disease, diabetes, dyslipidemia, bioprosthetic aortic valve. Moderately severe pulmonary hypertension. Moderate mitral valve insufficiency. Moderate tricuspid valve insufficiency. Presented to the emergency room with 3- day history of worsening shortness of breath, found to have bilateral pleural effusions, admitted for congestive heart failure. Patient will be admitted as an inpatient for 2 midnights with the following issues. 1. Acute congestive heart failure exacerbation with preserved ejection fraction. Previous echocardiogram was 11/14/2018 with left ventricular ejection fraction of 75%. Patient has moderately severe pulmonary hypertension with a bioprosthetic aortic valve with appropriate function, only trace insufficiency but moderate mitral valve insufficiency and moderate tricuspid insufficiency. Patient has negative cardiac markers. Currently without any acute coronary syndrome. Cardiac markers will be cycled, however. She will be admitted to the telemetry unit. Strict intake and output, daily weights, and fluid restriction. Nephrology has been consulted, Dr. Dougherty, for diuresis in light of patient's chronic kidney disease, stage IV, status post biopsy in October 2018. Per Dr. Dougherty, patient may be given Lasix 60 mg IV times one. Further diuresis will be done tomorrow after re-evaluation. 2. Chronic kidney disease, stage IV, currently with fluid overload. Per Dr. Dougherty, patient may be given Lasix 60 mg times one. Further diuresis to be decided in the morning, depending on patient's clinical outcome. She is kept on strict intake and output, daily weights. Avoid nephrotoxins and renally dose all medications. Strict intake and output, daily weights, and fluid restriction of 2 liters. Patient has nephrotic-range proteinuria, to be managed by nephrology. 3. Type 2 diabetes. She is continued on consistent-carbohydrate renal diet with sliding scale. She is continued on her home dose of long-acting insulin at 20 units at bedtime with holding parameters for glucose less than 180. Will try to avoid any metformin due to acute congestive heart failure. 4. Hypertension. Resume all home medications. Monitor patient's creatinine. 5. Dyslipidemia. Resume home dose of statin. 6. Bioprosthetic aortic valve. Replacement initially 2005 with bovine valve and 2014 with porcine valve. Echo was recently checked a month ago. Will continue with current management for now. 7. History of cerebral edema with right cerebellar hemisphere hematoma. Patient has no mental status changes at this time. Will monitor clinically. 8. Deep vein thrombosis (DVT) prophylaxis with compression stockings. Patient has been signed out to Dr. Alexi Valentin. [facility]
[2018-12-11] MEDS: SLF 3 ML SYR IV SCH (22:57)
[2018-12-11 23:59] VITALS: BP 167/80
[2018-12-12] MEDS: FUROSEMIDE 100 MG/10 ML VIAL (J1940) IV SCH ×3 (03:09→23:35)
[2018-12-12] MEDS: IPRATROPIUM 0.5MG/ALBUTEROL 2.5MG INH SOL UD 3ML (DUONEB)(J7620) NEB SCH ×6 (04:17→23:52)
[2018-12-12] MEDS: SLF 3 ML SYR IV SCH ×3 (05:23→20:28)
[2018-12-12 06:10] LABS: HEMOGLOBIN 7.6 g/dl (12.0-15.5); MEAN CORPUSCULAR HEMOGLOBIN 28.8 pg (27.0-33.0); MEAN CORPUSCULAR HGB CONC 31.7 g/dl (32.0-36.5); MEAN CORPUSCULAR VOLUME 90.9 fl (80.0-96.0); PLATELET COUNT, AUTOMATED 166 10^3/uL (150-450); RED BLOOD COUNT 2.64 10^6/uL (4.00-5.40); WHITE BLOOD COUNT 5.3 10^3/uL (4.0-10.0)
[2018-12-12 06:32] LABS: CALCIUM LEVEL 8.1 MG/DL (8.5-10.1); CREATININE FOR GFR 2.92 MG/DL (0.55-1.30); GLOMERULAR FILTRATION RATE 17.7 (>51); POTASSIUM SERUM 4.2 MEQ/L (3.5-5.1)
[2018-12-12] MEDS: HumaLOG INSULIN (NovoLOG) PER UNIT SC SCH ×4 (07:43→20:28)
[2018-12-12] MEDS ORDERED: amLODIPine 10 MG TAB PO SCH (09:00)
[2018-12-12] MEDS: **hydrALAZINE** 50 MG TAB PO SCH (09:00)
[2018-12-12] MEDS ORDERED: SPIRONOLACTONE 25 MG TAB PO SCH (09:00)
[2018-12-12] MEDS ORDERED: ASCORBIC ACID 500 MG TAB PO SCH (09:00)
[2018-12-12] MEDS: CARVedilol 6.25 MG TAB PO SCH ×3 (09:00→20:27)
--- NOTE | 2018-12-12 09:09 | IPNPDOC ---
Subjective Date Seen The patient was seen on 12/12/18. Subjective Chief Complaint/HPI Less SOB today Constitutional: Denies: Chills, Fever Pulmonary: Reports: Dyspnea; Denies: Cough Cardiovascular: Denies: Chest Pain Gastrointestinal: Denies: Nausea, Vomiting, Abdominal Pain, Diarrhea, Constipation Objective Physical Examination General Exam: Positive: Alert, No Acute Distress Chest Exam: Positive: Other (decrease BS left base > right); Negative: Rales, Rhonchi, Wheezing Heart Exam: Positive: Rate Normal, Regular Rhythm Abdomen Exam: Positive: Normal bowel sounds, Soft; Negative: Tenderness Extremity Exam: Positive: Edema (trace) Assessment /Plan Problems (1) CHF exacerbation Status: Acute Response to Treatment: Improving Problem Text: Nephrology managing diuretic dosing - Lasix 60 mg IV Q6H and Hydralazine Some diuresis overnight with improved resp symptoms. Get Dietary education for renal/diabetic an CHF diets Echo ordered, but there was done last admission 11/14/18: Normal sinus rhythm without intraventricular conduction disturbance. M-mode and two-dimensional echocardiography was performed with pulsed, continuous wave, color flow and tissue Doppler studies. Left ventricular wall thickness upper limits of normal with hyperkinetic wall motion. Left atrial size was upper limits of normal. Borderline right heart chamber enlargement with normal wall motion with Doppler evidence of at least moderately severe pulmonary hypertension. Normal IVC size with virtually absent respiratory collapse in keeping with an elevated central venous pressure. Aortic valve appears to be a bioprosthetic with appropriate function for this structure and only trace insufficiency. (2) Acute anemia Status: Chronic Response to Treatment: Worse Problem Text: Hgb down further than baseline. NO report of active bleeding s/p iron infusions and on oral ferous gluc at home Check stool guiac Defer Aranesp to Nephrology (3) HTN (hypertension) Problem Text: BP remians elevated despite Amlodipine 10, Hydralazine 100 TID, Coreg 6.25 BID and diuretics as above. No TERESA/ARB due to CKD4 Will defer to Nephrology further BP med adjustments Plasma Metanepharines normal last admission when admitted with hypertensive urgency Renal US: Impression: No Doppler evidence of renal artery stenosis. The resistive indices are elevated bilaterally, this is nonspecific. (4) H/O: CVA (cerebrovascular accident) Status: Chronic Problem Text: recent CVA (See Previous Admission) - will be following with Neurology as outpatient (5) Diabetes mellitus with nephropathy Status: Chronic Response to Treatment: Stable Problem Text: recently started on Insulin - Lantus 20 units daily at home. Had some hypoglycemia here - will decrease Lantus slightly while here (6) Stage 4 chronic kidney disease due to diabetes mellitus Status: Chronic Response to Treatment: Stable Problem Text: Per nephrology Plan/VTE VTE Prophylaxis Ordered?: Yes (start Lovenox) Plan Therapy: PT VS, I&O, 24H, Fishbone Vital Signs/I&O Vital Signs Date Time Temp Pulse Resp B/P (MAP) Pulse Ox O2 Delivery O2 Flow Rate FiO2 12/12/18 04:00 2.0 12/11/18 23:59 97.8 77 18 167/80 (109) 97 Nasal Cannula I&O- Last 24 Hours up to 6 AM 12/12/18 06:00 Intake Total 220 ml Output Total 1700 ml Balance -1480 ml Laboratory Data 24H LABS Laboratory Tests 2 12/11/18 13:33: Immature Granulocyte % (Auto) 0.5, Neutrophils (%) (Auto) 80.8H, Lymphocytes (%) (Auto) 11.5L, Monocytes (%) (Auto) 5.4H, Eosinophils (%) (Auto) 1.2, Basophils (%) (Auto) 0.6, Neutrophils # (Auto) 5.3, Lymphocytes # (Auto) 0.8L, Monocytes # (Auto) 0.4, Eosinophils # (Auto) 0.1, Basophils # (Auto) 0.0, Nucleated Red Blood Cells % (auto) 0.0, Anion Gap 7L, Glomerular Filtration Rate 20.4L, Calcium Level 8.5, Total Bilirubin 0.5, Direct Bilirubin 0.1, Aspartate Amino Transf (AST/SGOT) 35, Alanine Aminotransferase (ALT/SGPT) 46, Alkaline Phosphatase 113, Total Creatine Kinase 179, Creatine Kinase MB 4.4H, Creatine Kinase MB Relative Index 2.46, Troponin I < 0.02, GH-Xnf-P-Type Natriuretic Peptide 4256H, Total Protein 5.8L, Albumin 3.1L, Albumin/Globulin Ratio 1.15, Thyroid Stimulating Hormone (TSH) 3.560, Thyroxine (T4) 14.6H 12/11/18 18:10: Bedside Glucose (Misc Panel) 66L 12/11/18 18:28: Reticulocyte # (auto) 69.4, Differential Slide Review Report, Peripheral Blood Smear Path Consult PERIPHERAL SMEAR, Erythrocyte Sedimentation Rate 51H, Percent Reticulocyte Count 2.3H, Reticulocyte Hemoglobin Equivalent 34.8, Iron Level 32L, Total Iron Binding Capacity 253, Transferrin % Saturation 12.6L, Ferritin 142, C-Reactive Protein, Quantitative 0.46H 12/11/18 18:29: 12/11/18 19:48: Bedside Glucose (Misc Panel) 127H 12/11/18 23:30: Methicillin-Resist S.aureus DNA PCR NOT DETECTED 12/12/18 05:57: Nucleated Red Blood Cells % (auto) 0.0, Anion Gap 5L, Glomerular Filtration Rate 17.7L, Calcium Level 8.1L CBC/BMP Laboratory Tests 12/11/18 13:33 12/12/18 05:57 Microbiology Microbiology 12/12/18 Gram Stain, Received Pending 12/12/18 Sputum Culture, Received Pending 12/11/18 Respiratory Virus Panel (PCR) (BOB) - Final, Complete 12/11/18 Blood Culture, Received Pending EARNEST DAVIDSON PA-C Dec 12, 2018 09:09
[2018-12-12 09:25] VITALS: BP 130/72
[2018-12-12] MEDS: ASPIRIN 81 MG ENTERIC TAB PO SCH (09:29)
[2018-12-12] MEDS: FERROUS GLUCONATE 324 MG TAB PO SCH (09:29)
--- NOTE | 2018-12-12 11:39 | IPNPDOC ---
Date Seen The patient was seen on 12/12/18. Progress Note NEPHROLOGY PROGRESS NOTE: SUBJECTIVE: Patient was seen and examined at the bedside this morning. Her shortness of breath has improved, although she is still not fully able to lay flat while sl eeping. She has been urinating well--almost 2.5L at this point. Her lower extremity swelling has decreased since last night. She did not get some of her BP meds this morning, as there were hold parameters in place. Otherwise, she is eating and drinking well. OBJECTIVE PHYSICAL EXAMINATION: VITAL SIGNS: Please see below. GENERAL APPEARANCE: Laying in bed, appears stated age, no acute distress HEENT: EOMI, PERRLA, neck is supple with no thyromegaly or lymphadenopathy RESPIRATORY: Crackles throughout both lung zendejas up to the middle lobes bilaterally but has improved since yesterday CARDIOVASCULAR: JVD is elevated to 12-14cm at the sternal angle, RRR, 2/6 PATRICIA in RUSB, prosthetic aortic valve can be heard ABDOMEN: Soft, nontender to palpation, no masses/organomegaly EXTREMITIES: trace edema in lower extremities bilaterally, otherwise no clubbing or cyanosis NEUROLOGICAL: No obvious focal deficits PSYCHIATRIC: normal mood/affect Skin: No rashes or ulcers. LN: No significant cervical or inguinal lymphadenopathy LABORATORY DATA: Please see below. 11/14/18 Echo:LVwall thickness upper limits normal with hyperkinetic wall motion EF 75%, LA 3.6 cm, Bioprosthetic aortic valve with normal function, moderate mitral insuf, mod TR ASSESSMENT/PLAN: Nilda Martin is a 58 YO F with history of CKD IV, DM2, HTN who presents with shortness of breath x 3 days found to be fluid overloaded in the setting of possible medication noncompliance 1. Acute respiratory distress sec to Pulm Edema: -CXR and Chest CT demonstrate bilateral pleural effusions L > R -BNP elevated at 4256. Patient does have moderate mitral insufficiency but EF 75% -Continue IV lasix 60mg Q8H. Her breathing is subjectively better this morning with almost 2.5L output -Pending procalcitonin level for determination of need to treat pneumonia. Low suspicion pneumonia--SOB appears to be more of a fluid overload issue. 2. CKD IV: -Biopsy proven diabetic nephropathy. -Cr is up from her baseline of 2.5 to 2.9 today -Patient appears to be fluid overloaded on exam but improved since yesterday. Lasix is written with hold parameters for >3L output in 24h -Hold all nephrotoxic medications 3. Hypernatremia: Na found to be 145 on admission -Sodium today 144. Stable 3. DM2: patient was somewhat hypoglycemic on admission -Continue home Levemir and SSI 4. HTN with Hypertensive Heart disease and CKD: likely to improve with diuresis. She was just admitted in 10/2018 with hypertensive emergency -Continue home Norvasc, Coreg -Home Hydralazine dose stopped -Holding home Spironolactone -Hold parameter for sBP<120 5. Anemia of Chronic kidney disease: -s/p iron infusions. -Venofer infusions ordered -Continue home oral Ferrous Gluconate Dispo: Pending improvement in fluid status VS, I&O, 24H, Fishbone Vital Signs/I&O Vital Signs Date Time Temp Pulse Resp B/P (MAP) Pulse Ox O2 Delivery O2 Flow Rate FiO2 12/12/18 10:11 99.5 12/12/18 09:25 72 18 130/72 (91) 99 Nasal Cannula 2.0 I&O- Last 24 Hours up to 6 AM 12/12/18 06:00 Intake Total 220 ml Output Total 1700 ml Balance -1480 ml Laboratory Data 24H LABS Laboratory Tests 2 12/11/18 13:33: Immature Granulocyte % (Auto) 0.5, Neutrophils (%) (Auto) 80.8H, Lymphocytes (%) (Auto) 11.5L, Monocytes (%) (Auto) 5.4H, Eosinophils (%) (Auto) 1.2, Basophils (%) (Auto) 0.6, Neutrophils # (Auto) 5.3, Lymphocytes # (Auto) 0.8L, Monocytes # (Auto) 0.4, Eosinophils # (Auto) 0.1, Basophils # (Auto) 0.0, Nucleated Red Blood Cells % (auto) 0.0, Anion Gap 7L, Glomerular Filtration Rate 20.4L, Calcium Level 8.5, Total Bilirubin 0.5, Direct Bilirubin 0.1, Aspartate Amino Transf (AST/SGOT) 35, Alanine Aminotransferase (ALT/SGPT) 46, Alkaline Phosphatase 113, Total Creatine Kinase 179, Creatine Kinase MB 4.4H, Creatine Kinase MB Relative Index 2.46, Troponin I < 0.02, SW-Wwe-E-Type Natriuretic Peptide 4256H, Total Protein 5.8L, Albumin 3.1L, Albumin/Globulin Ratio 1.15, Thyroid Stimulating Hormone (TSH) 3.560, Thyroxine (T4) 14.6H 12/11/18 18:10: Bedside Glucose (Misc Panel) 66L 12/11/18 18:28: Reticulocyte # (auto) 69.4, Differential Slide Review Report, Peripheral Blood Smear Path Consult PERIPHERAL SMEAR, Erythrocyte Sedimentation Rate 51H, Percent Reticulocyte Count 2.3H, Reticulocyte Hemoglobin Equivalent 34.8, Iron Level 32L, Total Iron Binding Capacity 253, Transferrin % Saturation 12.6L, Ferritin 142, C-Reactive Protein, Quantitative 0.46H 12/11/18 18:29: 12/11/18 19:48: Bedside Glucose (Misc Panel) 127H 12/11/18 23:30: Methicillin-Resist S.aureus DNA PCR NOT DETECTED 12/12/18 05:57: Nucleated Red Blood Cells % (auto) 0.0, Anion Gap 5L, Glomerular Filtration Rate 17.7L, Calcium Level 8.1L CBC/BMP Laboratory Tests 12/11/18 13:33 12/12/18 05:57 Microbiology Microbiology 12/12/18 Stool Occult Blood (BOB), Received Pending 12/12/18 Gram Stain - Final, Resulted 12/12/18 Sputum Culture, Resulted Pending 12/11/18 Respiratory Virus Panel (PCR) (BOB) - Final, Complete 12/11/18 Blood Culture, Received Pending GME ATTESTATION GME ATTESTATION My faculty preceptor for this patient encounter was physically present during the encounter and was fully available. All aspects of the patient interview, examination, medical decision making process, and medical care plan development were reviewed and approved by the faculty preceptor. The faculty preceptor is aware and concurs with the plan as stated in the body of this note and will at test to such by his/her cosignature. CHANEL RICCI MD Dec 12, 2018 11:39
[2018-12-12 12:00] VITALS: BP 142/78
[2018-12-12] MEDS: IRON SUCROSE 200 MG in NS 100 ML IV SCH (13:02)
[2018-12-12] MEDS ORDERED: FUROSEMIDE 100 MG/10 ML VIAL (J1940) IV ONE (13:30)
[2018-12-12 14:15] VITALS: BP 150/70
[2018-12-12 14:31] VITALS: BP 145/68
[2018-12-12 15:40] VITALS: BP 142/70
[2018-12-12 20:00] VITALS: BP 148/70
[2018-12-12] MEDS ORDERED: VANCOMYCIN HCL 1,000 MG, VIAL MATE ADAPTER 1 EACH in D5W 250 ML IV SCH (20:00)
[2018-12-12 20:21] LABS: CK-MB VALUE MASS 3.6 NG/ML (<3.6); CPK CREATINE PHOSPHOKINASE 227 U/L (26-192); MB/CK RELATIVE INDEX 1.59 (< OR =4); TROPONIN I < 0.02 NG/ML (< 0.10)
[2018-12-12] MEDS: ATORVASTATIN 20 MG TAB PO SCH (20:27)
[2018-12-12] MEDS: SENOKOT S TAB PO SCH (20:28)
[2018-12-12] MEDS: LEVEMIR (INSULIN DETEMIR) 1 UNITS/0.01ML SC SCH (20:31)
[2018-12-13] VITALS (12 sets, daily range): BP systolic 140–170; BP diastolic 52–82
[2018-12-13] MEDS: IPRATROPIUM 0.5MG/ALBUTEROL 2.5MG INH SOL UD 3ML (DUONEB)(J7620) NEB SCH ×5 (03:56→19:18)
[2018-12-13 05:58] LABS: HEMATOCRIT 22.8 % (36.0-47.0); HEMOGLOBIN 7.3 g/dl (12.0-15.5); MEAN CORPUSCULAR HEMOGLOBIN 28.5 pg (27.0-33.0); MEAN CORPUSCULAR VOLUME 89.1 fl (80.0-96.0); PLATELET COUNT, AUTOMATED 155 10^3/uL (150-450); RED BLOOD COUNT 2.56 10^6/uL (4.00-5.40); WHITE BLOOD COUNT 4.7 10^3/uL (4.0-10.0)
[2018-12-13 06:28] LABS: ALBUMIN 2.8 GM/DL (3.2-5.2); CALCIUM LEVEL 8.4 MG/DL (8.5-10.1); CREATININE FOR GFR 2.98 MG/DL (0.55-1.30); GLOMERULAR FILTRATION RATE 17.3 (>51); PHOSPHORUS LEVEL 5.3 MG/DL (2.5-4.9); POTASSIUM SERUM 4.3 MEQ/L (3.5-5.1)
[2018-12-13] MEDS: SLF 3 ML SYR IV SCH ×3 (07:22→21:22)
[2018-12-13] MEDS: ASPIRIN 81 MG ENTERIC TAB PO SCH (07:46)
[2018-12-13] MEDS: FERROUS GLUCONATE 324 MG TAB PO SCH (07:46)
[2018-12-13] MEDS: amLODIPine 5 MG TAB PO SCH (07:46)
[2018-12-13] MEDS: CARVedilol 6.25 MG TAB PO SCH ×2 (07:46→21:21)
[2018-12-13] MEDS: FUROSEMIDE 100 MG/10 ML VIAL (J1940) IV SCH ×2 (07:47→17:12)
[2018-12-13] MEDS: IRON SUCROSE 200 MG in NS 100 ML IV SCH (07:48)
[2018-12-13] MEDS: HumaLOG INSULIN (NovoLOG) PER UNIT SC SCH ×4 (07:48→21:00)
--- NOTE | 2018-12-13 11:34 | IPNPDOC ---
Date Seen The patient was seen on 12/13/18. Progress Note NEPHROLOGY PROGRESS NOTE: SUBJECTIVE: Patient was seen and examined at the bedside this morning. Her shortness of breath has improved. She has been producing a good amount of urine and her BP has been high-normal overnight. She is not having any dysuria, n/v/d at this time. OBJECTIVE PHYSICAL EXAMINATION: VITAL SIGNS: Please see below. GENERAL APPEARANCE: Laying in bed, appears stated age, no acute distress HEENT: EOMI, PERRLA, neck is supple with no thyromegaly or lymphadenopathy RESPIRATORY: Crackles throughout both lung zendejas up to the middle lobes bilaterally but has improved since yesterday CARDIOVASCULAR: JVD is elevated to 12-14cm at the sternal angle, RRR, 2/6 PATRICIA in RUSB, prosthetic aortic valve can be heard ABDOMEN: Soft, nontender to palpation, no masses/organomegaly EXTREMITIES: trace edema in lower extremities bilaterally, otherwise no clubbing or cyanosis NEUROLOGICAL: No obvious focal deficits PSYCHIATRIC: normal mood/affect Skin: No rashes or ulcers. LN: No significant cervical or inguinal lymphadenopathy LABORATORY DATA: Please see below. 11/14/18 Echo:LVwall thickness upper limits normal with hyperkinetic wall motion EF 75%, LA 3.6 cm, Bioprosthetic aortic valve with normal function, moderate mitral insuf, mod TR ASSESSMENT/PLAN: Nilda Martin is a 58 YO F with history of CKD IV, DM2, HTN who presents with shortness of breath x 3 days found to be fluid overloaded in the setting of possible medication noncompliance 1. Acute respiratory distress sec to Pulm Edema: -CXR and Chest CT demonstrate bilateral pleural effusions L > R -BNP elevated at 4256. Patient does have moderate mitral insufficiency but EF 75% -Continue IV lasix 60mg Q8H. She has had over 3L output in the past 48 hours. -Procalcitonin level was 0.04 (r/o pneumonia) 2. CKD IV: -Biopsy proven diabetic nephropathy. -Cr is up from her baseline of 2.5 to 2.9 today -Continue Lasix -Hold all nephrotoxic medications 3. Hypernatremia: Na found to be 145 on admission -Sodium today 144. Stable 3. DM2: patient was somewhat hypoglycemic on admission -Continue home Levemir and SSI 4. HTN with Hypertensive Heart disease and CKD: likely to improve with diuresis. She was just admitted in 10/2018 with hypertensive emergency -Continue home Norvasc, Coreg -Holding home Hydralazine -Holding home Spironolactone -Hold parameter for sBP<120 5. Anemia of Chronic kidney disease: Hgb down to 7.3 today from 7.6 yesterday -1U pRBCs ordered today. Consent signed and in chart -Venofer infusions ordered -Continue home oral Ferrous Gluconate Dispo: Pending improvement in fluid status VS, I&O, 24H, Fishbone Vital Signs/I&O Vital Signs Date Time Temp Pulse Resp B/P (MAP) Pulse Ox O2 Delivery O2 Flow Rate FiO2 12/13/18 10:03 150/78 (102) 12/13/18 08:00 98.7 69 18 96 Room Air 12/12/18 12:00 2.0 I&O- Last 24 Hours up to 6 AM 12/13/18 06:00 Intake Total 1310 ml Output Total 2650 ml Balance -1340 ml Laboratory Data 24H LABS Laboratory Tests 2 12/12/18 12:33: Bedside Glucose (Misc Panel) 155H 12/12/18 16:59: Bedside Glucose (Misc Panel) 153H 12/12/18 19:47: Total Creatine Kinase 227H, Creatine Kinase MB 3.6, Creatine Kinase MB Relative Index 1.59, Troponin I < 0.02 12/12/18 20:21: Bedside Glucose (Misc Panel) 90 12/13/18 05:39: Nucleated Red Blood Cells % (auto) 0.0, Anion Gap 6L, Glomerular Filtration Rate 17.3L, Calcium Level 8.4L, Phosphorus Level 5.3H, Albumin 2.8L CBC/BMP Laboratory Tests 12/13/18 05:39 Microbiology Microbiology 12/12/18 Stool Occult Blood (BOB) - Final, Complete 12/12/18 Gram Stain - Final, Resulted 12/12/18 Sputum Culture, Resulted Pending 12/11/18 Respiratory Virus Panel (PCR) (BOB) - Final, Complete 12/11/18 Blood Culture - Preliminary, Resulted No growth after 24 hours . All specim... GME ATTESTATION GME ATTESTATION My faculty preceptor for this patient encounter was physically present during the encounter and was fully available. All aspects of the patient interview, examination, medical decision making process, and medical care plan development were reviewed and approved by the faculty preceptor. The faculty preceptor is aware and concurs with the plan as stated in the body of this note and will attest to such by his/her cosignature. CHANEL RICCI MD Dec 13, 2018 11:34
--- NOTE | 2018-12-13 15:26 | IPNPDOC ---
Subjective Date Seen The patient was seen on 12/13/18. Subjective Chief Complaint/HPI at baseline dyspnea Constitutional: Denies: Chills Eyes: Denies: Pain ENT: Denies: Head Aches, Ear Pain Skin: Denies: Lesions Pulmonary: Denies: Dyspnea Cardiovascular: Denies: Chest Pain, Palpitations Gastrointestinal: Denies: Nausea, Vomiting Genitourinary: Denies: Dysuria Objective Physical Examination General Exam: Positive: Alert, No Acute Distress Chest Exam: Positive: Other (decrease BS left base > right); Negative: Rales, Rhonchi, Wheezing Heart Exam: Positive: Rate Normal, Regular Rhythm Abdomen Exam: Positive: Normal bowel sounds, Soft; Negative: Tenderness Extremity Exam: Positive: Edema (trace) Assessment /Plan Problems (1) CHF exacerbation Status: Acute Response to Treatment: Improving Problem Text: -3L since 12/11 admission continue fur 60 IV q8H 11/14/18 TTE: Normal sinus rhythm without intraventricular conduction disturbance. M-mode and two-dimensional echocardiography was performed with pulsed, continuous wave, color flow and tissue Doppler studies. Left ventricular wall thickness upper limits of normal with hyperkinetic wall motion. Left atrial size was upper limits of normal. Borderline right heart chamber enlargement with normal wall motion with Doppler evidence of at least moderately severe pulmonary hypertension. Normal IVC size with virtually absent respiratory collapse in keeping with an elevated central venous pressure. Aortic valve appears to be a bioprosthetic with appropriate function for this structure and only trace insufficiency. (2) Acute anemia Status: Chronic Response to Treatment: Worse Problem Text: baseline hgb mid 10s on asa 81 for recent CVA 2 Fe def /ACD (adequate retic 12/11 r35/2.3) on po Fe and IV Fe for total dose 1 gm 12/13 emperic + PPI (given gradual loss, epigastric cramping this AM) 12/12 HO - x 1, BUT suspicious for acute blood loss 12/13 7.3-tx 1u PRBCs 12/12 smear normal 11/28 B12 395 10/2018 Mily dillon MCKaty (3) HTN (hypertension) Problem Text: fair control on Amlodipine 10, carve 6.25 BID Plasma Metanepharines normal last admission when admitted with hypertensive ur gency Renal US: Impression: No Doppler evidence of renal artery stenosis. The resistive indices are elevated bilaterally, this is nonspecific. (4) H/O: CVA (cerebrovascular accident) Status: Chronic Problem Text: remains on asa 81 recent CVA (See Previous Admission) - will be following with Neurology as outpatient (5) Diabetes mellitus with nephropathy Status: Chronic Response to Treatment: Stable Problem Text: HD glar 20 QHS AC TID BG mid 100s on det 10 (6) Stage 4 chronic kidney disease due to diabetes mellitus Status: Chronic Response to Treatment: Stable Problem Text: baseline cr ~2.5 (7) Physical deconditioning Status: Chronic Problem Text: 12/13 + PT Plan/VTE VTE Prophylaxis Ordered?: Yes (start Lovenox) Plan Therapy: PT VS, I&O, 24H, Fishbone Vital Signs/I&O Vital Signs Date Time Temp Pulse Resp B/P (MAP) Pulse Ox O2 Delivery O2 Flow Rate FiO2 12/13/18 14:40 98.8 69 17 158/80 97 Room Air 12/12/18 12:00 2.0 I&O- Last 24 Hours up to 6 AM 12/13/18 06:00 Intake Total 1310 ml Output Total 2650 ml Balance -1340 ml Laboratory Data 24H LABS Laboratory Tests 2 12/12/18 16:59: Bedside Glucose (Misc Panel) 153H 12/12/18 19:47: Total Creatine Kinase 227H, Creatine Kinase MB 3.6, Creatine Kinase MB Relative Index 1.59, Troponin I < 0.02 12/12/18 20:21: Bedside Glucose (Misc Panel) 90 12/13/18 05:39: Nucleated Red Blood Cells % (auto) 0.0, Anion Gap 6L, Glomerular Filtration Rate 17.3L, Calcium Level 8.4L, Phosphorus Level 5.3H, Albumin 2.8L 12/13/18 12:12: Bedside Glucose (Misc Panel) 213H CBC/BMP Laboratory Tests 12/13/18 05:39 Microbiology Microbiology 12/12/18 Stool Occult Blood (BOB) - Final, Complete 12/12/18 Gram Stain - Final, Resulted 12/12/18 Sputum Culture, Resulted Pending 12/11/18 Respiratory Virus Panel (PCR) (BOB) - Final, Complete 12/11/18 Blood Culture - Preliminary, Resulted No growth after 24 hours . All specim... Kris Rodriguez M.D. Dec 13, 2018 15:26
[2018-12-13] MEDS: PANTOPRAZOLE 40MG TAB (PROTONIX) PO SCH (17:11)
[2018-12-13] MEDS: LEVEMIR (INSULIN DETEMIR) 1 UNITS/0.01ML SC SCH (21:00)
[2018-12-13] MEDS: SENOKOT S TAB PO SCH (21:21)
[2018-12-13] MEDS: ATORVASTATIN 20 MG TAB PO SCH (21:21)
[2018-12-14] VITALS: BP 162/82
[2018-12-14] MEDS: FUROSEMIDE 100 MG/10 ML VIAL (J1940) IV SCH ×2 (01:10→07:48)
[2018-12-14] MEDS: IPRATROPIUM 0.5MG/ALBUTEROL 2.5MG INH SOL UD 3ML (DUONEB)(J7620) NEB SCH ×7 (03:35→23:29)
[2018-12-14 04:00] VITALS: BP 150/70
[2018-12-14 05:21] LABS: HEMATOCRIT 28.1 % (36.0-47.0); MEAN CORPUSCULAR HEMOGLOBIN 30.3 pg (27.0-33.0); MEAN CORPUSCULAR HGB CONC 34.2 g/dl (32.0-36.5); MEAN CORPUSCULAR VOLUME 88.6 fl (80.0-96.0); PLATELET COUNT, AUTOMATED 165 10^3/uL (150-450); RED BLOOD COUNT 3.17 10^6/uL (4.00-5.40); WHITE BLOOD COUNT 6.4 10^3/uL (4.0-10.0)
[2018-12-14 05:26] LABS: HEMOGLOBIN 9.6 g/dl (12.0-15.5)
[2018-12-14] MEDS: SLF 3 ML SYR IV SCH ×3 (05:41→21:24)
[2018-12-14 05:44] LABS: CALCIUM LEVEL 8.6 MG/DL (8.5-10.1); CREATININE FOR GFR 3.26 MG/DL (0.55-1.30); GLOMERULAR FILTRATION RATE 15.6 (>51); POTASSIUM SERUM 4.3 MEQ/L (3.5-5.1)
[2018-12-14] MEDS: FERROUS GLUCONATE 324 MG TAB PO SCH (07:48)
[2018-12-14] MEDS: PANTOPRAZOLE 40MG TAB (PROTONIX) PO SCH (07:48)
[2018-12-14] MEDS: ASPIRIN 81 MG ENTERIC TAB PO SCH (07:48)
[2018-12-14] MEDS: amLODIPine 5 MG TAB PO SCH (07:52)
[2018-12-14] MEDS: CARVedilol 6.25 MG TAB PO SCH ×2 (07:53→21:24)
[2018-12-14] MEDS: HumaLOG INSULIN (NovoLOG) PER UNIT SC SCH ×4 (07:53→21:00)
[2018-12-14] MEDS: IRON SUCROSE 200 MG in NS 100 ML IV SCH (07:54)
[2018-12-14 08:00] VITALS: BP 132/64
[2018-12-14] MEDS ORDERED: SODIUM CHLORIDE NASAL 0.65% SPRAY BTL (OCEAN) PRN (08:00)
[2018-12-14 12:00] VITALS: BP 145/62
[2018-12-14] MEDS: SPIRONOLACTONE 25 MG TAB PO SCH (12:45)
[2018-12-14 14:38] LABS: BODY FLUID CULTURE Not Indicated (.); LEGIONELLA ANTIGEN URINE Negative (Negative); ORGANISM ID Not indicated. (.); SPECIMEN SOURCE Urine (.); URINE STREP PNEUMONIAE ANTIGEN Negative (Negative)
--- NOTE | 2018-12-14 14:52 | IPNPDOC ---
Subjective Date Seen The patient was seen on 12/14/18. Subjective Chief Complaint/HPI dyspnea close to baseline Constitutional: Denies: Chills Eyes: Denies: Pain, Vision change ENT: Denies: Head Aches Skin: Denies: Rash Pulmonary: Denies: Dyspnea, Cough Cardiovascular: Denies: Chest Pain, Palpitations Gastrointestinal: Denies: Nausea, Vomiting Objective Physical Examination General Exam: Positive: Alert, No Acute Distress Chest Exam: Positive: Other (decrease BS left base > right); Negative: Rales, Rhonchi, Wheezing Heart Exam: Positive: Rate Normal, Regular Rhythm Abdomen Exam: Positive: Normal bowel sounds, Soft; Negative: Tenderness Extremity Exam: Positive: Edema (trace) Assessment /Plan Problems (1) CHF exacerbation Status: Acute Response to Treatment: Improving Problem Text: -7.7L since 12/11 admission 12/14 fur 60 IV q8H changed to torse 30 BID 11/14/18 TTE: Normal sinus rhythm without intraventricular conduction disturbance. M-mode and two-dimensional echocardiography was performed with pulsed, continuous wave, color flow and tissue Doppler studies. Left ventricular wall thickness upper limits of normal with hyperkinetic wall motion. Left atrial size was upper limits of normal. Borderline right heart chamber enlargement with normal wall motion with Doppler evidence of at least moderately severe pulmonary hypertension. Normal IVC size with virtually absent respiratory collapse in keeping with an elevated central venous pressure. Aortic valve appears to be a bioprosthetic with appropriate function for this structure and only trace insufficiency. (2) Acute anemia Status: Chronic Response to Treatment: Worse Problem Text: baseline hgb mid 10s on asa 81 for recent CVA 2 Fe def /ACD (adequate retic 12/11 r35/2.3) on po Fe and IV Fe for total dose 1 gm 12/13 emperic + panto 40 (given gradual loss, epigastric cramping this AM) 12/12, 12/14 HO -, BUT suspicious for acute blood loss 12/13 7.3-tx 1u PRBCs 12/12 smear normal 11/28 B12 395 10/2018 sIFShameka dillon MCB (3) HTN (hypertension) Problem Text: good control on Amlodipine 10, carve 6.25 BID, torse 30 BID Plasma Metanepharines normal last admission when admitted with hypertensive urgency Renal US: Impression: No Doppler evidence of renal artery stenosis. The resistive indices are elevated bilaterally, this is nonspecific. (4) H/O: CVA (cerebrovascular accident) Status: Chronic Problem Text: remains on asa 81 recent CVA (See Previous Admission) - will be following with Neurology as outpat ient (5) Diabetes mellitus with nephropathy Status: Chronic Response to Treatment: Stable Problem Text: HD glar 20 QHS AC TID BG mid 100s on det 10 (6) Stage 4 chronic kidney disease due to diabetes mellitus Status: Chronic Response to Treatment: Stable Problem Text: baseline cr ~2.5 (7) Physical deconditioning Status: Chronic Problem Text: 12/13 + PT Plan/VTE VTE Prophylaxis Ordered?: Yes (start Lovenox) Plan Therapy: PT VS, I&O, 24H, Fishbone Vital Signs/I&O Vital Signs Date Time Temp Pulse Resp B/P (MAP) Pulse Ox O2 Delivery O2 Flow Rate FiO2 12/14/18 12:00 97.8 60 20 145/62 (89) 96 Room Air 12/12/18 12:00 2.0 I&O- Last 24 Hours up to 6 AM 12/14/18 06:00 Intake Total 998 ml Output Total 3850 ml Balance -2852 ml Laboratory Data 24H LABS Laboratory Tests 2 12/13/18 16:54: Bedside Glucose (Misc Panel) 120H 12/13/18 19:33: Bedside Glucose (Misc Panel) 173H 12/14/18 05:07: 12/14/18 05:10: Nucleated Red Blood Cells % (auto) 0.0, Anion Gap 7L, Glomerular Filtration Rate 15.6L, Calcium Level 8.6 12/14/18 12:26: Bedside Glucose (Misc Panel) 204H CBC/BMP Laboratory Tests 12/14/18 05:10 Microbiology Microbiology 12/14/18 Stool Occult Blood (BOB) - Final, Complete 12/12/18 Stool Occult Blood (BOB) - Final, Complete 12/12/18 Gram Stain - Final, Complete 12/12/18 Sputum Culture - Final, Complete 12/11/18 Respiratory Virus Panel (PCR) (BOB) - Final, Complete 12/11/18 Blood Culture - Preliminary, Resulted No Growth after 48 hours. All Specime... Kris Rodriguez M.D. Dec 14, 2018 14:52
[2018-12-14 16:00] VITALS: BP 148/78
[2018-12-14] MEDS ORDERED: TORSEMIDE 10 MG TABLET PO SCH (17:00)
[2018-12-14 20:00] VITALS: BP 164/70
[2018-12-14] MEDS: LEVEMIR (INSULIN DETEMIR) 1 UNITS/0.01ML SC SCH (21:23)
[2018-12-14] MEDS: SENOKOT S TAB PO SCH (21:23)
[2018-12-14] MEDS: ATORVASTATIN 20 MG TAB PO SCH (21:23)
[2018-12-14] MEDS ORDERED: ACETAMINOPHEN TAB 650MG DOSE (2X325MG) PO ONE (23:45)
[2018-12-15] VITALS (8 sets, daily range): BP systolic 157–170; BP diastolic 64–82
[2018-12-15] MEDS: IPRATROPIUM 0.5MG/ALBUTEROL 2.5MG INH SOL UD 3ML (DUONEB)(J7620) NEB SCH ×3 (03:05→12:00)
[2018-12-15 06:16] LABS: HEMATOCRIT 29.4 % (36.0-47.0); HEMOGLOBIN 9.7 g/dl (12.0-15.5); MEAN CORPUSCULAR HEMOGLOBIN 29.8 pg (27.0-33.0); MEAN CORPUSCULAR VOLUME 90.2 fl (80.0-96.0); PLATELET COUNT, AUTOMATED 165 10^3/uL (150-450); RED BLOOD COUNT 3.26 10^6/uL (4.00-5.40); WHITE BLOOD COUNT 7.5 10^3/uL (4.0-10.0)
[2018-12-15] MEDS: SLF 3 ML SYR IV SCH (06:23)
[2018-12-15 06:37] LABS: CALCIUM LEVEL 8.1 MG/DL (8.5-10.1); CREATININE FOR GFR 3.32 MG/DL (0.55-1.30); GLOMERULAR FILTRATION RATE 15.2 (>51)
--- NOTE | 2018-12-15 06:40 | IPN ---
DATE: 12/14/2018 SUBJECTIVE Martin is seen and examined this morning at the bedside. She continues to diuresis well with IV Lasix, is negative 2.5 liters in the prior 24 hours her daily weights continue to downtrend. She reports resolution of her shortness of breath and dyspnea on exertion. She is for vein mapping today. VITAL SIGNS: Temperature 98.8, pulse 71, respiratory rate 20, blood pressure 132/64, saturating 93% on room air. Intake yesterday was 1 liter. Urine output yesterday was 3.5 liters, net negative 2.5 liters. Weight on the bed scale today is 55.8 kg. General: Patient is seen sitting in the chair, a middle-aged female, well nourished in no distress, comfortable. Extraocular muscles are intact. Tongue is moist. Neck is supple. The jugular veins are only mildly elevated. Heart sounds regular rate and rhythm. There is no edema in the peripheries. Lungs show symmetric air entry. There is no tachypnea. Abdomen is soft and nontender. Skin normal temperature and turgor. Neurologic no focal deficits, oriented times three. LABORATORIES: Sodium 145, potassium 4.3, bicarbonate 31, BUN 64, creatinine 3.2, phosphorus 5.3, hemoglobin 9.6. INPATIENT MEDICATIONS: The patient continues on Venofer infusions. I have discontinued her IV Lasix and started her on torsemide 30 mg p.o. b.i.d. and spironolactone 25 mg p.o. daily. PROBLEMS: 1. Acute kidney injury (SON) on chronic kidney disease (CKD) stage IV. The patient has biopsy proven diabetic nephropathy with nephrotic range proteinuria and she is likely to have progressive worsening of her chronic kidney disease. At present, her creatinine has risen up to 3.2. Her volume status has improved nicely over the course of this admission. she is net negative 6.5 liters. I am switching her over to an oral diuretic regimen of torsemide 30 mg p.o. twice daily and once daily spironolactone. She will have vein mapping done during this admission. She is not suitable for any angiotension-converting enzyme (TERESA) or angiotension receptor blockers (ARB). 2. Hypertension. Blood pressures are acceptable. Continue amlodipine and Carvedilol and diuretics. Continue renal diet with 1500 mL fluid restriction. 3. Congestive heart failure exacerbation. Echocardiogram showed some enlargement of her right heart chamber and moderately severe pulmonary hypertension and a elevated central venous pressure. She has responded nicely to IV Lasix. She has diuresed net negative 6.5 liters. She has been switched over to oral diuretics. She continues on low salt and a moderate fluid restriction. 4. Hyperphosphatemia. Her intact parathyroid hormone level is pending. Will decide upon need of binder after the PTH level has resulted. 5. Anemia related to chronic kidney disease and iron deficiency. Patient is receiving Venofer. There was likely also an element of hemodilution and her hemoglobin and hematocrit have come up with the correction of her volume status.
[2018-12-15] MEDS: HumaLOG INSULIN (NovoLOG) PER UNIT SC SCH ×3 (07:30→17:23)
[2018-12-15] MEDS ORDERED: TORSEMIDE 10 MG TABLET PO SCH (09:00)
[2018-12-15] MEDS ORDERED: TORS10TA3 PO (09:22)
[2018-12-15] MEDS ORDERED: AMLO5TAB6 PO (09:22)
[2018-12-15] MEDS: ASPIRIN 81 MG ENTERIC TAB PO SCH (10:21)
[2018-12-15] MEDS: PANTOPRAZOLE 40MG TAB (PROTONIX) PO SCH (10:21)
[2018-12-15] MEDS: IRON SUCROSE 200 MG in NS 100 ML IV SCH (10:21)
[2018-12-15] MEDS: FERROUS GLUCONATE 324 MG TAB PO SCH (10:22)
[2018-12-15] MEDS: amLODIPine 5 MG TAB PO SCH (10:22)
[2018-12-15] MEDS: SPIRONOLACTONE 25 MG TAB PO SCH (10:22)
[2018-12-15] MEDS: CARVedilol 6.25 MG TAB PO SCH (10:23)
--- NOTE | 2018-12-15 15:37 | DSES ---
DATE OF ADMISSION: 12/11/2018 DATE OF DISCHARGE: 12/15/2018 PRIMARY CARE PROVIDER (PCP): Viktoriya Valentin ATTENDING PHYSICIAN: Dr. Lonnie Graves HISTORY OF PRESENT ILLNESS: 58-year-old female presented to the emergency room at [facility] on 12/11/2018 for complaints of dyspnea on exertion and worsening shortness of breath for 2-3 days prior to presentation. Patient also admitted to lower extremity edema which had worsened and difficulty laying flat due to orthopnea. Patient was subsequently admitted to family medicine service. HOSPITAL COURSE: Patient was diuresed with excellent tolerability. She is down 9 kg and 8.5 liters of fluid. Patient is status post nephrology consult with adjustment of patient's medication dosing. She has been stable on torsemide and spironolactone for diuretics. It is recommended patient start with vein mapping to proceed with dialysis, and this has been started. We plan to attempt to have this completed prior to discharge today. On physical exam: Vital signs stable. She is afebrile. HEENT: Neck is supple without lymphadenopathy or jugular venous distention (JVD). Cardiovascular: Heart rate and rhythm are regular. Pulmonary: Lungs are clear. Abdomen is soft and nontender. Bilateral lower extremities without any edema. IMAGING: Chest x-ray on 12/11/[address] on 12/11/2018, which was positive for congestive heart failure (CHF) pattern with cardiomegaly and bilateral effusions. Left was greater than right. CONSULTATION: Nephrology, Dr. Susi Dudley. PROCEDURES: Echocardiogram is pending and vein mapping. ASSESSMENT: 1. Congestive heart failure (CHF) exacerbation. 2. Acute kidney injury (SON). Acute on chronic kidney disease, stage IV. 3. Hypertension. 4. Anemia. 5. Hyperphosphatemia. 6. Diabetes. PLAN: Patient will be discharged to home. Diet is consistent carbohydrate, 1500 mL fluid restriction. She will followup with primary care provider (PCP) in 5 days. She will followup with nephrology in 1 week. Activity is as tolerated. Public health will resume their services within the home. Medications are as follows: - amlodipine 5 mg one daily - torsemide 30 mg by mouth daily - aspirin 81 mg daily - atorvastatin 80 mg by mouth nightly - carvedilol 6.25 mg by mouth twice a day - ferrous gluconate 324 by mouth daily - Basaglar 20 units subcu nightly - MiraLAX daily, as needed constipation - senna one tab by mouth nightly - spironolactone 25 mg by mouth daily Patient is discharged in stable and satisfactory condition with no further questions at the time of discharge. edited: 12/16/2018 0725 naima BUCKD
--- NOTE | 2018-12-16 09:35 | REP ---
BILATERAL UPPER EXTREMITY DUPLEX DOPPLER VENOUS AND ARTERIAL ULTRASOUND FOR AV FISTULA MAPPING: Real-time ultrasound evaluation and duplex Doppler interrogation of bilateral upper extremity arterial and venous systems is performed. On the right the basilic veins measures 5 mm at the upper humerus, 4 mm at the lower humerus, 3 mm in the upper forearm and 1 mm in the lower forearm and wrist region. Cephalic vein measures 5 mm at the upper humerus, 4 mm at the lower humerus and upper forearm and 2 mm in the wrist. Median cubital vein measures 2 mm. Right upper extremity arterial structures demonstrate normal flow velocities with biphasic and triphasic wave forms. The right axillary artery measures 6 mm, brachial artery 4 mm, radial artery 2 mm and ulnar artery 1 mm. Left basilic vein measures 6 mm at the upper humerus, 2 mm at the lower humerus and 1 mm in the upper forearm, 2 mm in the lower forearm and wrist. The left cephalic veins measures 5 mm at the upper humerus, 4 mm at the lower humerus, 3 mm in the upper forearm, 2 mm in the lower forearm and wrist. Median cubital vein measures 3 mm. Left upper extremity arterial structures demonstrate normal flow velocities with biphasic wave forms. The left axillary and brachial arteries measure 4 mm, radial artery 1 mm and ulnar artery 2 mm. Electronically Signed by Devonte Chen MD 12/17/2018 11:41 A
== END 2018-12-15 18:00 | disposition home health service (06) | DRG 194 ==
LOC: M ED 12:22 → M ED INP 15:53 → M PCU 17:46
PROVIDERS: ADMIT General Practice; ATTEND Family Medicine
PROC: 30233N1 Transfusion of Nonautologous Red Blood Cells into Peripheral Vein, Percutaneous Approach (ICD-10-PCS; principal; 2018-12-13)
DX: I13.0 Hypertensive heart and chronic kidney disease with heart failure and stage 1 through stage 4 chronic kidney disease, or unspecified chronic kidney disease (principal); N18.4 Chronic kidney disease, stage 4 (severe); E87.0 Hyperosmolality and hypernatremia; I27.20 Pulmonary hypertension, unspecified; E11.21 Type 2 diabetes mellitus with diabetic nephropathy; I50.33 Acute on chronic diastolic (congestive) heart failure; E11.22 Type 2 diabetes mellitus with diabetic chronic kidney disease; I08.1 Rheumatic disorders of both mitral and tricuspid valves; E83.39 Other disorders of phosphorus metabolism; Z95.3 Presence of xenogenic heart valve; D63.1 Anemia in chronic kidney disease; J98.11 Atelectasis; E78.5 Hyperlipidemia, unspecified; Z79.82 Long term (current) use of aspirin; Z79.4 Long term (current) use of insulin; Z79.899 Other long term (current) drug therapy

== ENCOUNTER 2019-01-01 07:57 | Outpatient (CLI) | payer OTHER ==
[~2019-01-01] VITALS: Ht 149.9 cm; Wt 59.5 kg
[~2019-01-01 07:57] MED LIST changes: +AMLO10TA5 PO; +AMLO5TAB6 PO; +ASPI81TA26 PO; +FERR32TA PO; +HYDR100T PO; +MIRA3350 PO; +SENN-23 PO; +SPIR-10 PO; +TORS10TA3 PO
[2019-01-01 08:00] VITALS: BP 177/74
[2019-01-01] MEDS ORDERED: FERRIC CARBOXYMALTOSE INJ 750 MG in NS 250 ML IV ONE (08:15)
[2019-01-01 10:04] VITALS: BP 162/70
== END 2019-01-01 10:00 | disposition home or self-care (01) ==
LOC: M INFU 07:57
PROVIDERS: ATTEND Internal Medicine Nephrology
DX: D50.9 Iron deficiency anemia, unspecified (principal)
CPT/HCPCS: 96365; J1439

== ENCOUNTER 2019-01-09 08:19 | Outpatient (CLI) | payer OTHER ==
[~2019-01-09] VITALS: Ht 149.9 cm; Wt 59.5 kg
[2019-01-09 08:30] VITALS: BP 163/69
[2019-01-09] MEDS ORDERED: FERRIC CARBOXYMALTOSE INJ 750 MG in NS 250 ML IV ONE (08:30)
[2019-01-09 10:36] VITALS: BP 153/68
== END 2019-01-09 10:37 | disposition home or self-care (01) ==
LOC: M INFU 08:19
PROVIDERS: ATTEND Internal Medicine Nephrology
DX: D50.9 Iron deficiency anemia, unspecified (principal)
CPT/HCPCS: 96365; J1439

== ENCOUNTER 2019-02-11 10:24 | Day surgery (SDC) | payer OTHER ==
[~2019-02-11] VITALS: Ht 149.9 cm; Wt 53.7 kg
[~2019-02-11 10:24] MED LIST changes: +D5W/0.2% SODIUM CHLORIDE 1,000 ML IV ONE; +DOCU100C16 PO
[2019-02-11] MEDS ORDERED: ROPIvacaine 0.5% 30 ML INJECTION (J2795 PER 1MG) ONE (10:25)
[2019-02-11] MEDS ORDERED: dexameTHASONE 10 MG/1 ML VIAL PRES.FREE (J1100) ONE (10:25)
[2019-02-11] MEDS ORDERED: fentaNYL 100 MCG/2 ML INJECTION (J3010) As Ordered ONE ×2 (10:51→11:14)
[2019-02-11] MEDS ORDERED: PROPOFOL 500 MG/50 ML VIAL As Ordered ONE (10:51)
[2019-02-11] MEDS ORDERED: MIDAZOLAM INJ 2 MG/2 ML VIAL (J2250) As Ordered ONE ×2 (10:51→11:14)
[2019-02-11] MEDS ORDERED: dexameTHASONE 4 MG/ML 1ML VIAL (J1100) As Ordered ONE (10:54)
[2019-02-11] MEDS ORDERED: ONDANSETRON 4MG/2ML VIAL (J2405) As Ordered ONE (10:54)
[2019-02-11] MEDS ORDERED: LIDOCAINE 1% SDV INJ 30 ML VIAL As Ordered ONE (10:56)
[2019-02-11] MEDS ORDERED: ISOVUE-300 61% 50ML VIAL (Q9967) As Ordered ONE (10:56)
[2019-02-11] MEDS ORDERED: HEPARIN SOD (PORCINE) 5000 UNITS/ML VIAL As Ordered ONE (10:57)
[2019-02-11 11:12] LABS: CALCIUM LEVEL 8.5 MG/DL (8.5-10.1); CREATININE FOR GFR 2.74 MG/DL (0.55-1.30); POTASSIUM SERUM 4.3 MEQ/L (3.5-5.1)
[2019-02-11] MEDS ORDERED: LIDOCAINE 2% INJ 100 MG/5 ML SDV (FOR ANES.) As Ordered ONE (11:53)
[2019-02-11] MEDS ORDERED: MIDAZOLAM INJ 2 MG/2 ML VIAL (J2250) IV ONE (12:00)
[2019-02-11] MEDS ORDERED: fentaNYL 100 MCG/2 ML INJECTION (J3010) IV ONE (12:00)
[2019-02-11] MEDS ORDERED: ceFAZolin 2 GM/D5W 50 ML IV BAG (J0690 PER 500MG) As Ordered ONE (12:07)
--- NOTE | 2019-02-11 13:25 | ROOPDOC ---
[facility] Report Of Operation Report of Operation DATE OF PROCEDURE: 02/11/19 PREPROCEDURE DIAGNOSES: Stage IV renal insufficiency with need for dialysis access POSTPROCEDURE DIAGNOSES: Same PROCEDURE: Left brachial cephalic AV fistula creation SURGEON: Adán Roberson MD ANESTHESIA: MAC, left scalene nerve block, local anesthesia INDICATION FOR PROCEDURE: Ms Martin is a very pleasant 58yo patient with stage IV renal insufficiency and needs an AV fistula for future dialysis. After reviewing her vein mapping, risks benefits and alternatives to a left brachial cephalic AV fistula creation were explained to the patient and she was agreeable to proceed. Informed consent was obtained. REPORT OF OPERATION: The patient was brought to the OR in stable condition after a left scalene nerve block was placed by our anesthesia colleagues in PACU. Monitored anesthesia care and antibiotics were administered without complication. Her left upper extremity was prepped and draped in a sterile fashion. A time out was performed. Local anesthesia was administered to the skin and subcutaneous tissue over the cephalic vein and brachial artery pulse jsut distal to the antecubital crease, and a transverse incision was made. This was carried down through the subcutaneous tissue with bovie cautery. The cephalic vein was identified and skeletonized proximally and distally within the incision. The distal branch points were suture ligated with silk suture. A bulldog was placed and the distal branches were ligated and connected with a alford scissor to make a larger patch for anastomosis. Dilators were passed through the vein sequentially, 3mm, 3.5mm, 4mm, 4.5mm. The dilators passed easily. We then dissected down the the brachial artery and vessel loops were placed around the radial artery, the ulnar artery, and the brachial artery proximally. The vessel loops were secured, and a 5mm arteriotomy was made. The vein was anastomosed to the artery in an end to side fashion with 6-0 prolene suture. The inflow and outflow arterial flow was flushed and then heparinized saline was used to irrigate the anastomosis, and the final sutures were placed. Flow was restored to the vein and inflow artery, then to the hand. Good hemostasis was noted. We irrigated with normal saline. Doppler confirmed flow to the fistula, but there was very little signal noted at the palmar arch. A silk suture was placed around the vein near the anastomosis, and used to narrow the inflow to the vein by about 1 mm. This dramatically improved flow to the hand, with a triphasic signal at the palmar arch. There was still good flow through the fistula on doppler and a thrill was palpable. The hand was warm and pink. We closed the deep dermal layer with running vicryl suture, and the skin with running subcuticular monocryl suture. The skin was cleaned and dried, and mastisol and steri strips were used to dress the incision. A 2x2 and tegaderm were used as a final dressing. The patient was allowed to awaken from anesthesia and taken to recovery in stable condition. ESTIMATED BLOOD LOSS: Approximately 10 mL. COMPLICATIONS: none. PLAN: We will follow up with the patient in 1 week to check her fistula and incision. Percocet analgesia if needed- Rx sent. Ok to remove sling once block wears off and sensation/motor function return. Ok to resume all home medications. ADÁN ROBERSON MD Feb 11, 2019 13:25
[2019-02-11] MEDS ORDERED: OXYC1TAB23 PO (13:28)
[2019-02-11 13:52] VITALS: BP 181/79
== END 2019-02-11 15:14 | disposition home or self-care (01) ==
LOC: M SDC 10:24
PROVIDERS: ATTEND Surgery Vascular Surgery
DX: N18.4 Chronic kidney disease, stage 4 (severe) (principal); I13.0 Hypertensive heart and chronic kidney disease with heart failure and stage 1 through stage 4 chronic kidney disease, or unspecified chronic kidney disease; E10.22 Type 1 diabetes mellitus with diabetic chronic kidney disease; I50.9 Heart failure, unspecified; I35.9 Nonrheumatic aortic valve disorder, unspecified; E78.00 Pure hypercholesterolemia, unspecified; D64.9 Anemia, unspecified; M17.0 Bilateral primary osteoarthritis of knee; Z79.899 Other long term (current) drug therapy; Z79.4 Long term (current) use of insulin; Z79.82 Long term (current) use of aspirin; Z95.3 Presence of xenogenic heart valve; Z98.51 Tubal ligation status
CPT/HCPCS: 36415; 36821; 64415; 80048; J0690; J1100; J2250; J2405; J2795; J3010

== ENCOUNTER → 2019-02-28 | Outpatient (REF) | payer OTHER ==
[~2019-02-28] MED LIST changes: -D5W/0.2% SODIUM CHLORIDE 1,000 ML IV ONE; +OXYC1TAB23 PO
[2019-02-28 17:33] LABS: HEMATOCRIT 30.1 % (36.0-47.0); HEMOGLOBIN 10.2 g/dl (12.0-15.5); MEAN CORPUSCULAR HEMOGLOBIN 30.8 pg (27.0-33.0); MEAN CORPUSCULAR HGB CONC 33.9 g/dl (32.0-36.5); MEAN CORPUSCULAR VOLUME 90.9 fl (80.0-96.0); PLATELET COUNT, AUTOMATED 209 10^3/uL (150-450); RED BLOOD COUNT 3.31 10^6/uL (4.00-5.40); WHITE BLOOD COUNT 7.2 10^3/uL (4.0-10.0)
[2019-02-28 17:38] LABS: ALBUMIN 3.6 GM/DL (3.2-5.2); BILIRUBIN,TOTAL 0.4 MG/DL (0.2-1.0); CALCIUM LEVEL 8.4 MG/DL (8.5-10.1); CREATININE FOR GFR 2.96 MG/DL (0.55-1.30); GLOMERULAR FILTRATION RATE 17.4 (>51); POTASSIUM SERUM 4.2 MEQ/L (3.5-5.1); TOTAL PROTEIN 6.7 GM/DL (6.4-8.2)
[2019-02-28 17:50] LABS: HEMOGLOBIN A1c 7.2 %
== END ==
LOC: M SFHCADAM 08:09
PROVIDERS: ATTEND Physician Assistant
DX: I12.9 Hypertensive chronic kidney disease with stage 1 through stage 4 chronic kidney disease, or unspecified chronic kidney disease (principal); E11.21 Type 2 diabetes mellitus with diabetic nephropathy

== ENCOUNTER → 2019-03-03 | Outpatient (REF) | payer OTHER ==
[2019-03-03 18:31] LABS: ALBUMIN 3.5 GM/DL (3.2-5.2); CALCIUM LEVEL 8.3 MG/DL (8.5-10.1); CREATININE FOR GFR 2.9 MG/DL (0.55-1.30); GLOMERULAR FILTRATION RATE 17.8 (>51); MAGNESIUM LEVEL 2.4 MG/DL (1.8-2.4); PHOSPHORUS LEVEL 4.8 MG/DL (2.5-4.9); POTASSIUM SERUM 4.5 MEQ/L (3.5-5.1); URIC ACID 8.5 MG/DL (2.6-6.0)
== END ==
LOC: M LAB REF 17:17
PROVIDERS: ATTEND Internal Medicine Nephrology
DX: N18.4 Chronic kidney disease, stage 4 (severe) (principal)

== ENCOUNTER → 2019-04-03 | Outpatient (REF) | payer OTHER | LOC: M LAB REF 09:04 | PROVIDERS: ATTEND Dermatology | DX: D48.9 Neoplasm of uncertain behavior, unspecified (principal) ==

== ENCOUNTER → 2019-06-18 | Outpatient (REF) | payer OTHER ==
[2019-06-18 18:01] LABS: PERCENT SATURATION 27.7 % (13.2-45.0)
== END ==
LOC: M LAB REF 16:37
PROVIDERS: ATTEND Internal Medicine Nephrology
DX: N18.9 Chronic kidney disease, unspecified (principal); D63.1 Anemia in chronic kidney disease

== ENCOUNTER → 2019-12-31 | Outpatient (REF) | payer OTHER ==
[~2019-12-31] MED LIST changes: -AMLO10TA5 PO; +AMLO1TAB24 PO; +AMLO1TAB25 PO; -AMLO5TAB6 PO
[2020-01-01 14:08] LABS: CHOLESTEROL RISK RATIO 2.217 (<5); FOLATE 10.7 NG/ML; FREE T4 1.3 NG/DL (0.76-1.46); THYROID STIMULATING HORMONE 4.02 uIU/ML (0.358-3.740)
[2020-01-01 15:07] LABS: HEMOGLOBIN A1c 6.8 %
== END ==
LOC: M SFHCADAM 15:56
PROVIDERS: ATTEND Physician Assistant
DX: I10 Essential (primary) hypertension (principal); E11.319 Type 2 diabetes mellitus with unspecified diabetic retinopathy without macular edema; I63.9 Cerebral infarction, unspecified

== ENCOUNTER → 2020-08-08 | Outpatient (REF) | payer OTHER ==
[~2020-08-08] MED LIST changes: +ASPI-569 PO; -ASPI81TAEC PO; +LISI10TA22 PO; -LISI10TA4 PO
[2020-08-08 17:56] LABS: FERRITIN 610 NG/ML (8-252); IRON (FE) 43 UG/DL (50-170); PERCENT SATURATION 19.7 % (13.2-45.0); TOTAL IRON BINDING CAPACITY 218 UG/DL (250-450)
[2020-08-08 18:02] LABS: HEPATITIS B SURFACE ANTIBODY NEGATIVE (POSITIVE)
[2020-08-08 18:13] LABS: HEPATITIS B SURFACE ANTIGEN NEGATIVE (NEGATIVE)
[2020-08-08 18:41] LABS: HEPATITIS B CORE ANTIBODY IGM NEGATIVE (NEGATIVE); HEPATITIS C VIRUS ABY INDEX < 0.0 INDEX (<0.8)
== END ==
LOC: M LAB REF 17:06
PROVIDERS: ATTEND Internal Medicine Nephrology
DX: N18.5 Chronic kidney disease, stage 5 (principal); D63.1 Anemia in chronic kidney disease

== ENCOUNTER → 2020-09-16 | Outpatient (REF) | payer OTHER ==
[2020-09-16 17:33] LABS: FREE T4 1.33 NG/DL (0.76-1.46); THYROID STIMULATING HORMONE 3.19 uIU/ML (0.358-3.740)
[2020-09-16 18:17] LABS: HEMOGLOBIN A1c 6.9 %
== END ==
LOC: M SFHCADAM 12:00
PROVIDERS: ATTEND Physician Assistant
DX: E11.319 Type 2 diabetes mellitus with unspecified diabetic retinopathy without macular edema (principal)

== ENCOUNTER → 2020-10-13 | Outpatient (CLI) | payer OTHER ==
--- NOTE | 2020-10-13 14:41 | REP ---
INDICATION: Z12.31 SCREENING MAMMO. COMPARISON: There are no priors comparison. The patient states her last mammogram was almost 16 years ago and they have been destroyed. TECHNIQUE: Digital screening mammography was cardio bilaterally in the CC and MLO projections using both 2D and 3D modalities. By history, the patient has no complaints of a palpable breast abnormality or other significant breast complaints. FINDINGS: Scattered dense fibroglandular elements are seen bilaterally. There are no masses. There is no internal architectural distortion. In the left breast centrally on the CC and MLO views there is a grouping of calcifications which appear to vary in size, shape, and radiographic density. Other calcifications are seen bilaterally and are benign. The Volpara volumetric breast density pattern is b. IMPRESSION: BIRADS/ACR category 0 mammogram there is a grouping of calcifications seen in the left breast as described above and for which diagnostic digital magnified spot compression views are recommended in the true lateral and CC projections. This patient's Tyrer-Cuzick lifetime breast cancer risk assessment score is 8.7%. This mammogram was interpreted with the aid of an FDA-approved computer-aided detection system. The patient states she had a clinical breast exam in over a year. The patient letter being requested is M0. RECOMMENDATION: As above <Electronically signed by Ben Rogers > 10/13/20 [id number]
== END ==
LOC: M WHC 10:19
PROVIDERS: ATTEND Physician Assistant
DX: Z12.31 Encounter for screening mammogram for malignant neoplasm of breast (principal); R92.1 Mammographic calcification found on diagnostic imaging of breast

== ENCOUNTER → 2020-11-04 | Outpatient (CLI) | payer OTHER ==
--- NOTE | 2020-11-04 11:36 | REP ---
INDICATION: ADDL VIEWS LEFT BREAST. COMPARISON: 10/13/2020 the only prior TECHNIQUE: Diagnostic digital magnified spot compression views of the left breast in the CC and MLO projections. FINDINGS: In the central aspect of the left breast there is a grouping of calcifications which vary in size, shape, and radiographic density. IMPRESSION: BIRADS/ACR category 4 mammogram. Suspicious calcifications as described above for which biopsy is recommended. The patient letter being requested is M4. RECOMMENDATION: As above <Electronically signed by Ben Rogers > 11/04/20 [id number]
== END ==
LOC: M WHC 10:55
PROVIDERS: ATTEND Physician Assistant
DX: R92.2 Inconclusive mammogram (principal); N63.25 Unspecified lump in the left breast, overlapping quadrants

== ENCOUNTER → 2020-11-30 | Outpatient (CLI) | payer OTHER ==
[~2020-11-30] MED LIST changes: +ALLO100T PO; +EZET10TA21 PO; +HYDR10TAB PO; +MM S100C PO
[2020-11-30 09:10] VITALS: BP 138/82
== END ==
LOC: M WHCPRO 07:41
PROVIDERS: ATTEND Surgery
DX: R92.8 Other abnormal and inconclusive findings on diagnostic imaging of breast (principal); Z53.8 Procedure and treatment not carried out for other reasons

== ENCOUNTER → 2020-12-01 | Outpatient (CLI) | payer MEDICARE, OTHER | LOC: M LABSMTC 10:26 | PROVIDERS: ATTEND Anesthesiology | DX: Z01.812 Encounter for preprocedural laboratory examination (principal); Z20.822 Contact with and (suspected) exposure to COVID-19 ==

== ENCOUNTER 2020-12-06 06:05 | Day surgery (SDC) | payer MEDICARE, OTHER ==
[~2020-12-06] VITALS: Ht 147.3 cm; Wt 72.8 kg
[~2020-12-06 06:05] MED LIST changes: +LR 1,000 ML IV ONE; +ceFAZolin SOD 2 GM in IV 1 EA IV ONE
[2020-12-06] MEDS ORDERED: LIDOCAINE 1% SDV 30ML VIAL As Ordered ONE (07:08)
[2020-12-06] MEDS ORDERED: HEPARIN SOD (PORCINE) 5000UNITS/ML 1ML VIAL/SYRINGE As Ordered ONE (07:11)
[2020-12-06] MEDS ORDERED: propofoL 200 MG/20 ML VIAL As Ordered ONE (07:36)
[2020-12-06] MEDS ORDERED: MIDAZOLAM INJ 2MG/2ML VIAL (J2250 PER 1MG) As Ordered ONE (07:36)
[2020-12-06] MEDS ORDERED: fentaNYL 100 MCG/2 ML INJECTION As Ordered ONE (07:36)
[2020-12-06] MEDS ORDERED: LIDOCAINE 2% 100MG/5ML SDV (FOR ANES.) As Ordered ONE (07:36)
[2020-12-06] MEDS ORDERED: ePHEDrine SULFATE 25 MG/5 ML(5MG/ML) SYRINGE As Ordered ONE (08:04)
[2020-12-06] MEDS ORDERED: ONDANSETRON 4MG/2ML VIAL IV PRN (09:25)
[2020-12-06] MEDS ORDERED: oxyCODONE 5MG TAB PO PRN (09:25)
[2020-12-06] MEDS ORDERED: NORCO, ANEXSIA 5/325MG TABLET (HYDROcodone/ACETAMINOPHEN) PO PRN (09:55)
[2020-12-06] MEDS ORDERED: ACETAMINOPHEN TAB 650MG DOSE (2X325MG) PO PRN (09:55)
[2020-12-06 10:00] VITALS: BP 143/63
[2021-02-14] MEDS ORDERED: TORS10TA3 PO (10:11)
[2021-02-14] MEDS ORDERED: AMLO1TAB25 PO (10:11)
[2021-03-02] MEDS ORDERED: HYDR-3910 PO (09:04)
[2021-03-02] MEDS ORDERED: ALLO100T PO (09:04)
== END 2020-12-06 10:05 | disposition home or self-care (01) ==
LOC: M SDC 06:05
PROVIDERS: ATTEND Surgery
DX: N18.6 End stage renal disease (principal); I11.0 Hypertensive heart disease with heart failure; I50.9 Heart failure, unspecified; I35.9 Nonrheumatic aortic valve disorder, unspecified; E11.22 Type 2 diabetes mellitus with diabetic chronic kidney disease; E78.00 Pure hypercholesterolemia, unspecified; D64.9 Anemia, unspecified; M17.0 Bilateral primary osteoarthritis of knee; Z86.73 Personal history of transient ischemic attack (TIA), and cerebral infarction without residual deficits; Z79.899 Other long term (current) drug therapy; Z79.82 Long term (current) use of aspirin; Z95.2 Presence of prosthetic heart valve; Z95.828 Presence of other vascular implants and grafts; Z99.2 Dependence on renal dialysis
CPT/HCPCS: 36415; 49421; 84132; C1750; J1644; J2250; J3010

== ENCOUNTER → 2021-02-23 | Outpatient (CLI) | payer MEDICARE, OTHER ==
[~2021-02-23] MED LIST changes: -LR 1,000 ML IV ONE; -ceFAZolin SOD 2 GM in IV 1 EA IV ONE
== END ==
LOC: M LABSMTC 13:17
PROVIDERS: ATTEND Anesthesiology
DX: Z01.818 Encounter for other preprocedural examination (principal); Z11.52 Encounter for screening for COVID-19

== ENCOUNTER 2021-02-28 07:29 | Day surgery (SDC) | payer MEDICARE, OTHER ==
[~2021-02-28] VITALS: Ht 147.3 cm; Wt 74.4 kg
[~2021-02-28 07:29] MED LIST changes: +LIDOCAINE 1% MDV 20ML VIAL SQ PRN; +LR 1,000 ML IV ONE; +ceFAZolin SOD 2 GM in IV 1 EA IV ONE
[2021-02-28] MEDS ORDERED: propofoL 200 MG/20 ML VIAL As Ordered ONE (08:05)
[2021-02-28] MEDS ORDERED: ONDANSETRON 4MG/2ML VIAL As Ordered ONE (08:06)
[2021-02-28] MEDS ORDERED: ROCURONIUM BROMIDE 50 MG/5 ML VIAL As Ordered ONE (08:06)
[2021-02-28] MEDS ORDERED: MIDAZOLAM INJ 2MG/2ML VIAL (J2250 PER 1MG) As Ordered ONE (08:06)
[2021-02-28] MEDS ORDERED: dexameTHASONE 4 MG/ML 1ML VIAL (J1100 PER 1MG) As Ordered ONE (08:06)
[2021-02-28] MEDS ORDERED: fentaNYL 100 MCG/2 ML INJECTION (J3010) As Ordered ONE (08:06)
[2021-02-28] MEDS ORDERED: LIDOCAINE 2% 100MG/5ML SDV (FOR ANES.) As Ordered ONE (08:06)
[2021-02-28] MEDS ORDERED: SUGAMMADEX SODIUM 500 MG/5 ML VIAL (BRIDION) As Ordered ONE (08:54)
[2021-02-28] MEDS ORDERED: D5W/0.2% SODIUM CHLORIDE 1,000 ML IV SCH ×2 (09:00→11:50)
[2021-02-28] MEDS ORDERED: HumuLIN R (REGULAR) INSULIN (NovoLIN R) **100U/ML** PER UNIT SC ONE ×2 (09:00)
[2021-02-28] MEDS ORDERED: HEPARIN SOD (PORCINE) 5000UNITS/ML 1ML VIAL/SYRINGE As Ordered ONE ×2 (09:20→09:25)
[2021-02-28] MEDS ORDERED: HumaLOG INSULIN (NovoLOG) PER UNIT SC ONE ×2 (09:20)
[2021-02-28] MEDS ORDERED: BUPIVACAINE HCL 0.25% 30ML VIAL As Ordered ONE (09:20)
[2021-02-28] MEDS ORDERED: ePHEDrine SULFATE 25 MG/5 ML(5MG/ML) SYRINGE As Ordered ONE (10:11)
[2021-02-28] MEDS ORDERED: KETOROLAC 60MG 2ML VIAL As Ordered ONE (11:26)
[2021-02-28] MEDS ORDERED: fentaNYL 100 MCG/2 ML INJECTION (J3010) IV PRN (11:50)
[2021-02-28] MEDS ORDERED: oxyCODONE 5MG TAB PO PRN (11:50)
[2021-02-28 13:15] VITALS: BP 146/67
[2021-03-02] MEDS ORDERED: HYDR-3910 PO (09:04)
[2021-03-02] MEDS ORDERED: ALLO100T PO (09:04)
== END 2021-02-28 13:44 | disposition home or self-care (01) ==
LOC: M SDC 07:29
PROVIDERS: ATTEND Surgery
DX: T85.611A Breakdown (mechanical) of intraperitoneal dialysis catheter, initial encounter (principal); Y73.2 Prosthetic and other implants, materials and accessory gastroenterology and urology devices associated with adverse incidents; K66.0 Peritoneal adhesions (postprocedural) (postinfection); N17.9 Acute kidney failure, unspecified; Z99.2 Dependence on renal dialysis; I13.10 Hypertensive heart and chronic kidney disease without heart failure, with stage 1 through stage 4 chronic kidney disease, or unspecified chronic kidney disease; I50.9 Heart failure, unspecified; Z86.73 Personal history of transient ischemic attack (TIA), and cerebral infarction without residual deficits; E78.00 Pure hypercholesterolemia, unspecified; E11.22 Type 2 diabetes mellitus with diabetic chronic kidney disease; D50.9 Iron deficiency anemia, unspecified; M17.0 Bilateral primary osteoarthritis of knee; N18.4 Chronic kidney disease, stage 4 (severe); Z95.3 Presence of xenogenic heart valve; Z79.899 Other long term (current) drug therapy; Z79.82 Long term (current) use of aspirin; Z79.4 Long term (current) use of insulin
CPT/HCPCS: 36415; 49325; 49326; 84132; J0690; J1100; J1644; J1885; J2250; J2405; J3010

== ENCOUNTER 2021-03-13 06:30 | Day surgery (SDC) | payer MEDICARE, OTHER ==
[~2021-03-13] VITALS: Ht 147.3 cm; Wt 72.6 kg
[~2021-03-13 06:30] MED LIST changes: +HYDR-3910 PO; -LIDOCAINE 1% MDV 20ML VIAL SQ PRN; -LR 1,000 ML IV ONE; +NS 1,000 ML IV ONE; -ceFAZolin SOD 2 GM in IV 1 EA IV ONE
[2021-03-13] MEDS ORDERED: propofoL 200 MG/20 ML VIAL As Ordered ONE (06:36)
[2021-03-13] MEDS ORDERED: LIDOCAINE 2% MDV 20ML VIAL As Ordered ONE (06:36)
[2021-03-13 10:11] VITALS: BP 145/67
== END 2021-03-13 10:11 | disposition home or self-care (01) ==
LOC: M OPP 06:30
PROVIDERS: ATTEND Internal Medicine Gastroenterology
DX: Z12.11 Encounter for screening for malignant neoplasm of colon (principal); K63.5 Polyp of colon; K64.8 Other hemorrhoids; Z79.82 Long term (current) use of aspirin; Z79.899 Other long term (current) drug therapy

== ENCOUNTER → 2021-03-22 | Outpatient (REF) | payer MEDICARE, OTHER ==
[~2021-03-22] MED LIST changes: -NS 1,000 ML IV ONE
[2021-03-22 14:18] LABS: CHOLESTEROL RISK RATIO 2.278 (<5); FREE T4 1.59 NG/DL (0.76-1.46); THYROID STIMULATING HORMONE 5.35 uIU/ML (0.358-3.740)
== END ==
LOC: M SFHCADAM 08:27
PROVIDERS: ATTEND Physician Assistant
DX: E11.22 Type 2 diabetes mellitus with diabetic chronic kidney disease (principal); N18.6 End stage renal disease

== ENCOUNTER → 2021-04-07 | Outpatient (CLI) | payer OTHER | LOC: M RAD 07:27 | PROVIDERS: ATTEND Internal Medicine | DX: Z01.818 Encounter for other preprocedural examination (principal); K80.20 Calculus of gallbladder without cholecystitis without obstruction ==

== ENCOUNTER 2021-06-28 13:55 | Outpatient (CLI) | payer MEDICARE, OTHER ==
[~2021-06-28] VITALS: Ht 147.3 cm; Wt 72.6 kg
[~2021-06-28 13:55] MED LIST changes: +ALBUTEROL SULFATE 2.5 MG/0.5 ML INH NEB SOLN INH PRN; +EPINEPHrine INJ 1 MG/ML 1ML AMP IM PRN; +diphenhydrAMINE 50MG/ML VIAL (J1200) IV PRN; +methylPREDNISolone 125MG 2ML VIAL IV PRN
[2021-06-28] MEDS ORDERED: ALBUTEROL 90 MCG/ACT 8GM HFA INHALER INH PRN (14:30)
[2021-06-28 14:34] VITALS: BP 141/65
[2021-06-28] MEDS ORDERED: BEBTELOVIMAB 175MG 2ML VIAL (EUA) IV ONE (15:00)
[2021-06-28 15:10] VITALS: BP 144/64
[2021-06-28 16:00] VITALS: BP 147/63
== END 2021-06-28 16:10 ==
LOC: M OPCLI4PR 13:55 → M 4MAIN 14:23 → M OPCLI4PR 16:10
PROVIDERS: ATTEND Family Medicine
DX: U07.1 COVID-19 (principal)

== ENCOUNTER → 2021-10-27 | Outpatient (CLI) | payer MEDICARE, OTHER ==
[~2021-10-27] MED LIST changes: -ALBUTEROL SULFATE 2.5 MG/0.5 ML INH NEB SOLN INH PRN; -EPINEPHrine INJ 1 MG/ML 1ML AMP IM PRN; -diphenhydrAMINE 50MG/ML VIAL (J1200) IV PRN; -methylPREDNISolone 125MG 2ML VIAL IV PRN
== END ==
LOC: M WHC 10:17
PROVIDERS: ATTEND Physician Assistant
DX: Z12.31 Encounter for screening mammogram for malignant neoplasm of breast (principal)

== ENCOUNTER 2022-03-26 16:25 | Emergency (ER) | payer MEDICARE, OTHER ==
[~2022-03-26] VITALS: Ht 149.9 cm; Wt 72.7 kg
[2022-03-26 16:39] VITALS: BP 139/63
[2022-03-26] MEDS ORDERED: ASPIRIN 81MG CHEW TABLET PO ONE (17:15)
[2022-03-26 17:17] LABS: BASO # 0.1 10^3/uL (0.0-0.2); BASO % 0.9 % (0.0-1.0); EOS # 0.2 10^3/uL (0.0-0.5); EOS % 1.9 % (0.0-3.0); HEMATOCRIT 27.7 % (36.0-47.0); HEMOGLOBIN 9.3 g/dl (12.0-15.5); LYMPH % 8.4 % (24.0-44.0); MEAN CORPUSCULAR HEMOGLOBIN 31.8 pg (27.0-33.0); MEAN CORPUSCULAR HGB CONC 33.6 g/dl (32.0-36.5); MEAN CORPUSCULAR VOLUME 94.9 fl (80.0-96.0); MONO # 0.7 10^3/uL (0.0-0.8); MONO % 5.5 % (2.0-8.0); NEUTROPHILS # 10.2 10^3/uL (1.5-8.5); NEUTROPHILS % 82.7 % (36.0-66.0); PLATELET COUNT, AUTOMATED 199 10^3/uL (150-450); RED BLOOD COUNT 2.92 10^6/uL (4.00-5.40); WHITE BLOOD COUNT 12.3 10^3/uL (4.0-10.0)
[2022-03-26 19:13] LABS: RSV AMPLIFICATION NEGATIVE (NEGATIVE)
[2022-03-26] MEDS ORDERED: LIDOCAINE 1% MDV 20ML VIAL SC ONE (19:50)
[2022-03-26 20:42] LABS: INR 1.07; PROTHROMBIN TIME 14.1 SECONDS (12.5-14.5)
[2022-03-26 20:43] LABS: PARTIAL THROMBOPLASTIN TIME 29.1 SECONDS (24.8-34.2)
[2022-03-26 20:52] LABS: ALBUMIN 2.9 G/DL (3.2-5.2); BILIRUBIN,DIRECT 0.1 MG/DL (<0.4); BILIRUBIN,TOTAL 0.5 MG/DL (0.3-1.2); CALCIUM LEVEL 8.6 MG/DL (8.3-10.6); CK-MB VALUE MASS 2.8 NG/ML (<3.6); CREATININE FOR GFR 5.75 MG/DL (0.55-1.30); MB/CK RELATIVE INDEX 2.91 (< OR =4); TOTAL PROTEIN 5.7 G/DL (5.7-8.2)
[2022-03-26] MEDS ORDERED: POTASSIUM CHLORIDE 10MEQ SR TABLET PO ONE (20:55)
[2022-03-26] MEDS ORDERED: HEPARIN DRIP 25,000 UNITS in IV 1 EA IV SCH (21:10)
[2022-03-26] MEDS ORDERED: HEPARIN SOD (PORCINE) 5000UNITS/ML 1ML VIAL/SYRINGE IV ONE (21:10)
[2022-03-26] MEDS ORDERED: ACETAMINOPHEN TAB 650MG DOSE (2X325MG) PO ONE (22:05)
== END 2022-03-26 22:39 | disposition short-term general hospital (02) ==
LOC: M ED 16:25 → EDBD 16:25 → M ED 22:39
DX: I21.4 Non-ST elevation (NSTEMI) myocardial infarction (principal); E87.6 Hypokalemia; E11.9 Type 2 diabetes mellitus without complications; E78.5 Hyperlipidemia, unspecified; I10 Essential (primary) hypertension; D64.9 Anemia, unspecified; Z86.79 Personal history of other diseases of the circulatory system; N18.9 Chronic kidney disease, unspecified; Z79.82 Long term (current) use of aspirin; Z79.4 Long term (current) use of insulin; Z79.811 Long term (current) use of aromatase inhibitors; Z79.899 Other long term (current) drug therapy
CPT/HCPCS: 71045; 80047; 80048; 80076; 82550; 82553; 83690; 84484; 85025; 85610; 85730; 87631; 93005; 93041; 94760; 96374; 99285; J1644